=== PATIENT | male | born 1990 | race African-American/Black ===

== ENCOUNTER 2019-12-10 21:11 | Emergency (ER) | payer OTHER, SELFPAY ==
[2019-12-10 21:13] VITALS: BP 139/85; PULSE 81; RESP 15; TEMP 37.2; O2SAT 100
--- NOTE | 2019-12-10 21:29 | ED.GENADULT ---
HPI - General Adult General Chief complaint: Dizziness Stated complaint: dizzy, hot flashes Time Seen by Provider: 12/10/19 21:24 Source: patient Mode of arrival: ambulatory Limitations: no limitations History of Present Illness HPI narrative: Patient is a 29-year-old male who presents to emergency department for evaluation of intermittent chills patient was seen at urgent care today diagnosed constipation given that he has had some cramping of the abdomen denies any current abdominal pain. Patient denies fever vomiting diarrhea chest pain or dyspnea. Patient notes some slight rhinorrhea. Patient denies other complaints and is resting comfortably in the room upon arrival and is not taken anything for his symptoms Related Data Home Medications Medication Instructions Recorded Confirmed acyclovir 12/10/19 Allergies Allergy/AdvReac Type Severity Reaction Status Date / Time No Known Allergies Allergy Unknown Verified 12/10/19 21:18 Review of Systems Review of Systems: All systems reviewed & are unremarkable except as noted in HPI and below PMFSH Social History Social History (Updated 12/10/19 @ 21:30 by Alberto La PA-C) Smoking status: Current every day smoker Alcohol intake: never Exam Narrative: Exam Narrative: GENERAL: Well-appearing, well-nourished, and in no acute distress. HEAD: Normocephalic, atraumatic. EYES: PERRLA and EOMI. ENT: Nares clear, no rhinorrhea or epistaxis. Mucous membranes moist. Oropharynx without tonsillar hypertrophy exudate or other lesions. NECK: Supple. No adenopathy or masses. CHEST: Clear to auscultation. No respiratory distress. No wheezes rales or rhonchi HEART: Regular rate and rhythm. No murmur heard. Normal peripheral pulses. ABDOMEN: Soft, nontender, nondistended EXTREMITIES: Normal range of motion. No edema. SKIN: Warm, dry, no rash. NEURO: No focal deficits. Alert and oriented x3. PSYCH: Normal mood and affect. Course Course Emergency Course: Patient in the room in no distress aware of case findings treatment plan and diagnosis Vital Signs Vital signs: Vital Signs Temperature 98.9 F 12/10/19 21:13 Pulse Rate 81 12/10/19 21:13 Respiratory Rate 15 12/10/19 21:13 Blood Pressure 139/85 12/10/19 21:13 Pulse Oximetry 100 12/10/19 21:13 Temperature 98.9 F 12/10/19 21:13 Pulse Rate 81 12/10/19 21:13 Respiratory Rate 15 12/10/19 21:13 Blood Pressure 139/85 12/10/19 21:13 Pulse Oximetry 100 12/10/19 21:13 Medical Decision Making MDM Narrative Medical decision making narrative: Patient in the room in no distress nontender abdominal exams afebrile nontoxic-appearing without emesis denying any URI symptoms dyspnea chest pain normal vital signs and felt appropriate for outpatient reevaluation provided with reasons to return Vital Signs Vital Signs: Vital Signs Temperature 98.9 F 12/10/19 21:13 Pulse Rate 81 12/10/19 21:13 Respiratory Rate 15 12/10/19 21:13 Blood Pressure 139/85 12/10/19 21:13 Pulse Oximetry 100 12/10/19 21:13 Temperature 98.9 F 12/10/19 21:13 Pulse Rate 81 12/10/19 21:13 Respiratory Rate 15 12/10/19 21:13 Blood Pressure 139/85 12/10/19 21:13 Pulse Oximetry 100 12/10/19 21:13 Discharge Plan Discharge Clinical Impression: Abdominal pain Patient Disposition: Home, Self-Care Condition: Stable Instructions: Antibiotic Form, Abdominal Pain (ED) Additional Instructions: Follow up with your primary care doctor in 5-7 days for re-evaluation. Go to ER for worsening pain, vision changes, nausea/vomiting, fever/chills, weakness, chest pain, shortness of breath, numbness/tingling, slurred speech, difficulty walking, change in mental status, abdominal pain etc. or any other concerns. Stay well-hydrated Take any prescribed medications as directed. Tylenol for pain Prescriptions: No Action acyclovir 400 mg tablet RF: 0 Follow-up/Re
--- NOTE | 2019-12-10 21:41 | PC.NURSE ---
this rn witnessed pt walk out of facility. pt in no obvious distress, no difficulty w/ ambulation. charge nurse notified.
[2019-12-10 21:43] VITALS: BP 139/85; PULSE 79; RESP 14; O2SAT 100
== END 2019-12-10 21:45 | disposition home or self-care (01) ==
LOC: ANHED 21:53
PROVIDERS: Emergency Provider Emergency Medicine
DX: R10.9 Unspecified abdominal pain (principal); F17.200 Nicotine dependence, unspecified, uncomplicated
CPT/HCPCS: 99283

== ENCOUNTER 2020-01-05 14:52 | Emergency (ER) | payer OTHER, SELFPAY ==
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
[2020-01-05 15:00] VITALS: BP 132/80; PULSE 72; RESP 16; TEMP 36.8; O2SAT 100
--- NOTE | 2020-01-05 15:11 | ECG_ITS ---
Measurements Intervals [place] Rate: 68 P: 64 CO: 150 QRS: 54 QRSD: 97 T: 50 QT: 369 QTc: 395 Interpretive Statements SINUS RHYTHM RSR' IN V1 OR V2, CONSIDER RIGHT VENTRICULAR HYPERTROPHY OR RIGHT VCD BORDERLINE ECG Electronically Signed On 01-05-2020 18:37:11 CDT by Alex Flores D.O.
[2020-01-05 15:28] LABS: Basophils Percent Auto 0.6 % (0.2-1.2); Eosinophils Absolute Auto 0.4 K/mm3 (0-0.3); Eosinophils Percent Auto 6.3 % (0-4.4); Hematocrit 48.3 % (42.0-52.0); Hemoglobin 16.7 g/dL (14.0-18.0); Immature Granulocyte Absolute 0.02 K/mm3 (0.00-0.031); Immature Granulocyte Percent A 0.3 % (0-0.5); Lymphocytes Absolute Auto 2.34 K/mm3 (0.9-3.2); Lymphocytes Percent Auto 36.7 % (18.3-44.2); Mean Corpuscular HGB Conc 34.6 g/dl (32-36); Mean Corpuscular Hemoglobin 30.4 pg (26-34); Mean Platelet Volume 10.2 fl (7.4-10.4); Monocytes Absolute Auto 0.5 K/mm3 (0.1-0.6); Monocytes Percent Auto 7.1 % (2.6-8.5); Neutrophils Absolute Auto 3.1 K/mm3 (1.3-6.7); Platelet Count Result 161 k/mm3 (150-375); Red Blood Count 5.49 M/mm3 (4.6-6.20); Red Cell Distribution Width 12.4 % (11.5-14.5); White Blood Count 6.4 K/mm3 (4.5-10.0)
[2020-01-05 15:32] LABS: Add Urine Microscopic? YES; Appearance Urine Clear (Clear); Bacteria Urine Trace /hpf; Bilirubin Urine Negative (Negative); Blood Urine Negative (Negative); Color Urine Straw (Yellow); Glucose Urine UA Negative (Negative); Ketones Urine Negative (Negative); Leukocyte Esterase Ur Negative LEU/UL (Negative); Nitrate Urine Negative (Negative); Protein Urine Negative (Negative); RBC Urine 0-2 /hpf (0-2); Specific Grav Ur 1.013 (1.001-1.035); Squamous Epithelial Cell Urine Rare /hpf (Few); Urobilinogen Urine Negative mg/dL (<2.0); WBC Urine 0-3 /hpf
[2020-01-05 15:40] LABS: Alanine Aminotransferase 20 U/L (4-50); Albumin Level 4.8 g/dL (3.5-5.1); Alkaline Phosphatase 47 U/L (38-126); Aspartate Amino Transferase 24 U/L (17-59); Bilirubin,Total 0.5 mg/dL (0.2-1.3); Blood Urea Nitrogen 13 mg/dL (9-20); Calcium 9.7 mg/dL (8.4-10.2); Carbon Dioxide 31 mmol/L (22-30); Chloride 101 mmol/L (98-107); Estimated CRCL calculation 115 ml/min; Estimated Glomerular Filt Rate > 60; Glucose 88 mg/dL (75-110); Lipase 55 U/L (23-300); Potassium 3.8 mmol/L (3.4-5.0); Sodium 138 mmol/L (137-145)
--- NOTE | 2020-01-05 16:10 | ED.GENADULT ---
HPI - General Adult General Chief complaint: Headache Stated complaint: Headache and b/l flank pain Time Seen by Provider: 01/05/20 14:58 Source: patient Mode of arrival: ambulatory Limitations: no limitations History of Present Illness HPI narrative: This patient is a 29 yo male who presents for evaluation of possible Coronavirus. Patient states that for the past week he has been having intermittent headache, diarrhea, intermittent flank pain. Patient reports over the past week, he has had headache that only last minutes and it changes locations. He denies a headache currently. He reports he assumed his headache was due to his sinuses so he has been taking daina. He reports the daina help with his sinus congestion and sneezing. He also reports he intermittently getting body aches . He denies urinary complaints. HE denies sob. He states he is concerned about COVID due to his family. He denies sick family members but thinke he may have been exposed at work. He has no pain during my examination. Related Data Home Medications Medication Instructions Recorded Confirmed acyclovir 400 mg PO DAILY 12/10/19 Allergies Allergy/AdvReac Type Severity Reaction Status Date / Time No Known Allergies Allergy Unknown Verified 01/05/20 14:59 Review of Systems Constitutional: Constitutional: Reports fatigue and Denies fever(s) Eyes: Eyes: Reports no additional eye complaints ENT: Reports dizziness, Reports headache(s), Reports nasal congestion and Denies sore throat Cardiovascular: Cardiovascular: Denies chest pain and Denies radiating jaw, neck or arm pain Respiratory: Respiratory: Denies cough and Denies dyspnea Gastrointestinal: Gastrointestinal: Denies abdominal pain and Reports diarrhea Genitourinary: Genitourinary: Denies hematuria, Denies oliguria, Denies dysuria and Denies urinary frequency Musculoskeletal: Musculoskeletal: Reports back pain Neurologic: Denies vertigo, Reports headache(s), Denies focal weakness and Denies numbness Allergic/Immunologic: Allergic/Immunologic: Denies lip swelling PMFSH Social History Social History (Updated 12/10/19 @ 21:30 by Alberto La PA-C) Smoking status: Current every day smoker Alcohol intake: never Gender identity (if verbalized by the patient): Male Exam Narrative: Exam Narrative: GENERAL: Well-appearing, well-nourished, and in no acute distress. HEAD: Normocephalic, atraumatic EYES: PERRLA and EOMI, conjunctiva clear without discharge NOSE: Nares clear, no rhinorrhea or epistaxis RESPIRATORY: No respiratory distress, Airway patent, Respirations non-labored, Clear to auscultation without rales, rhonchi or wheeze HEART: Regular rate and rhythm. No murmur heard. Normal peripheral pulses. ABDOMEN: Soft, nontender, nondistended, normal active bowel sounds. No masses. No rebound or guarding, No organomegaly. EXTREMITIES: No edema, normal strength with full range of motion. SKIN: Warm, dry, normal color without rash NEURO: Alert and oriented x3. CN 2-12 grossly intact. No focal deficits. PSYCH: Normal mood and affect. HENMT: Ears: TM abnormal with fluid behind the TM (serous) on the left Mouth: Yes Normal oral and palatal mucosa present, Yes lip normal, Yes oropharynx normal and Yes moist mucous membranes Throat: posterior oropharynx normal Eyes: Conjunctivae: conjunctivae normal Pupils: Equal, round and reactive pupils present EOM: EOMs intact bilaterally Neck: Neck: normal visual inspection Chest: Chest palpation & inspection: normal inspection of the chest Resp: Effort & Inspection: normal respiratory effort Course Reevaluation(s) Reevaluation #1: I have discussed with patient labs are unremarkable. He has no symptoms or labs that suggest additional imaging at this point. He has appointment with PCP on Tuesday. I discussed precautions until he is able to receive test results. Date: 01/05/20 Time: 16:58 Vital Signs Vital signs: Vital
[2020-01-05 17:11] VITALS: BP 116/75; PULSE 60; RESP 16; TEMP 36.8; O2SAT 100
[2020-01-05 22:29] LABS: SARS-CoV-2 RNA PCR Negative
== END 2020-01-05 17:17 | disposition home or self-care (01) ==
PROVIDERS: Emergency Provider General Practice
DX: R51 Headache (principal); Z20.828 Contact with and (suspected) exposure to other viral communicable diseases; F17.200 Nicotine dependence, unspecified, uncomplicated; R94.31 Abnormal electrocardiogram [ECG] [EKG]
CPT/HCPCS: 36415; 71045; 80053; 81001; 83690; 85025; 87635; 93005; 99283; C9803; U0003

== ENCOUNTER 2020-02-03 10:57 | Emergency (ER) | payer OTHER, SELFPAY ==
[2020-02-03] VITALS (22 sets, daily range): BP systolic 102–146; BP diastolic 60–85; PULSE 66–73; RESP 16–18; TEMP 36.5; O2SAT 97–100
[2020-02-03] MEDS: FAMOTIDINE 20 MG/2 ML VIAL IV PUSH (11:51)
[2020-02-03] MEDS: SODIUM CHLORIDE 0.9% IV 1,000 ML 999 ML IV CONT (11:52)
[2020-02-03 11:57] LABS: Basophils Percent Auto 0.8 % (0.2-1.2); Eosinophils Absolute Auto 0.5 K/mm3 (0-0.3); Eosinophils Percent Auto 9.8 % (0-4.4); Hematocrit 45.6 % (42.0-52.0); Hemoglobin 15.3 g/dL (14.0-18.0); Immature Granulocyte Absolute 0.01 K/mm3 (0.00-0.031); Immature Granulocyte Percent A 0.2 % (0-0.5); Lymphocytes Absolute Auto 1.69 K/mm3 (0.9-3.2); Lymphocytes Percent Auto 35.3 % (18.3-44.2); Mean Corpuscular HGB Conc 33.6 g/dl (32-36); Mean Corpuscular Hemoglobin 30.2 pg (26-34); Mean Corpuscular Volume 90.1 fl (80-100); Mean Platelet Volume 10.4 fl (7.4-10.4); Monocytes Absolute Auto 0.4 K/mm3 (0.1-0.6); Monocytes Percent Auto 7.5 % (2.6-8.5); Neutrophils Absolute Auto 2.2 K/mm3 (1.3-6.7); Neutrophils Percent Auto 46.4 % (45.5-73.1); Platelet Count Result 159 k/mm3 (150-375); Red Blood Count 5.06 M/mm3 (4.6-6.20); Red Cell Distribution Width 12.3 % (11.5-14.5); White Blood Count 4.8 K/mm3 (4.5-10.0)
[2020-02-03 12:06] LABS: Add Urine Microscopic? YES; Appearance Urine Cloudy (Clear); Bacteria Urine Trace /hpf; Bilirubin Urine Negative (Negative); Blood Urine Negative (Negative); Color Urine Yellow (Yellow); Glucose Urine UA Negative (Negative); Ketones Urine Negative (Negative); Leukocyte Esterase Ur Negative LEU/UL (Negative); Mucus Urine Rare /lpf; Nitrate Urine Negative (Negative); Protein Urine Negative (Negative); RBC Urine 0-2 /hpf (0-2); Specific Grav Ur 1.026 (1.001-1.035); Squamous Epithelial Cell Urine Rare /hpf (Few); WBC Urine 0-3 /hpf
--- NOTE | 2020-02-03 12:12 | ED.ABDPAIN ---
HPI - Abdominal Pain General Chief Complaint: Abdominal Pain <Alberto La PA-C - Last Filed: 02/03/20 12:57> Stated Complaint: ABD PAIN <ERUM Gordillo Last Filed: 02/03/20 12:57> Time Seen by Provider: 02/03/20 11:09 <ERUM Gordillo Last Filed: 02/03/20 12:57> Source: patient <Alberto La PA-C - Last Filed: 02/03/20 12:57> Mode of arrival: ambulatory <ERUM Gordillo Last Filed: 02/03/20 12:57> Limitations: no limitations <Alberto La PA-C - Last Filed: 02/03/20 12:57> History of Present Illness HPI narrative: Patient is a 29-year-old male who presents to emergency department for evaluation of abdominal pain that is been present for 1 month localized to the right flank noting aching pain that comes and goes on arrival denies any pain believes that it may be related to eating patient denies any prior evaluation for this has not taken anything for his symptoms denies any fever chills nausea vomiting or URI symptoms <Alberto La PA-C - Last Filed: 02/03/20 12:57> Related Data Home Medications: Home Medications Medication Instructions Recorded Confirmed acyclovir 400 mg PO DAILY 12/10/19 <Alberto La PA-C - Last Filed: 02/03/20 12:57> Allergies/Adverse Reactions: Allergies Allergy/AdvReac Type Severity Reaction Status Date / Time No Known Allergies Allergy Unknown Verified 02/03/20 11:19 <Alberto La PA-C - Last Filed: 02/03/20 12:57> Review of Systems Review of Systems: All systems reviewed & are unremarkable except as noted in HPI and below <Alberto La PA-C - Last Filed: 02/03/20 12:57> [facility] Social History Social History: Social History (Updated 12/10/19 @ 21:30 by Alberto La PA-C) Smoking status: Current every day smoker Alcohol intake: never Gender identity (if verbalized by the patient): Male <ERUM Gordillo Last Filed: 02/03/20 12:57> Exam Narrative: Exam Narrative: GENERAL: Well-appearing, well-nourished, and in no acute distress. HEAD: Normocephalic, atraumatic. EYES: PERRLA and EOMI. ENT: Nares clear, no rhinorrhea or epistaxis. Mucous membranes moist. CHEST: Clear to auscultation. No respiratory distress. No wheezes rales or rhonchi HEART: Regular rate and rhythm. No murmur heard. Normal peripheral pulses. ABDOMEN: Soft, nontender, nondistended EXTREMITIES: Normal range of motion. No edema. SKIN: Warm, dry, no rash. NEURO: No focal deficits. Alert and oriented x3. PSYCH: Normal mood and affect. <ERUM Gordillo Last Filed: 02/03/20 12:57> Course Course Emergency Course: Patient in the room in no distress aware of case findings treatment plan and diagnosis agreeing to follow-up as directed or to return if symptoms worsen or concern patient is afebrile nontoxic-appearing no distress <ERUM Gordillo Last Filed: 02/03/20 12:57> Vital Signs Vital signs: Vital Signs Temperature 36.5 C 02/03/20 11:03 Pulse Rate 73 02/03/20 11:03 Respiratory Rate 16 02/03/20 11:03 Blood Pressure 146/78 H 02/03/20 11:03 Pulse Oximetry 100 02/03/20 11:03 Temperature 36.5 C 02/03/20 11:03 Pulse Rate 66 02/03/20 13:06 Respiratory Rate 18 02/03/20 13:06 Blood Pressure 107/62 02/03/20 13:06 Pulse Oximetry 100 02/03/20 13:06 <ERUM Gordillo Last Filed: 02/03/20 12:57> Vital Signs Temperature 36.5 C 02/03/20 11:03 Pulse Rate 73 02/03/20 11:03 Respiratory Rate 16 02/03/20 11:03 Blood Pressure 146/78 H 02/03/20 11:03 Pulse Oximetry 100 02/03/20 11:03 Temperature 36.5 C 02/03/20 11:03 Pulse Rate 66 02/03/20 13:06 Respiratory Rate 18 02/03/20 13:06 Blood Pressure 107/62 02/03/20 13:06 Pulse Oximetry 100 02/03/20 13:06 <Daphne Cha MD - Last Filed: 02/03/20 13:57> MDM - Abdominal Pain MDM Narrative Medical decision making narrat
[2020-02-03 12:15] LABS: Alanine Aminotransferase 20 U/L (4-50); Albumin Level 4.8 g/dL (3.5-5.1); Alkaline Phosphatase 45 U/L (38-126); Aspartate Amino Transferase 28 U/L (17-59); Bilirubin,Total 0.8 mg/dL (0.2-1.3); Blood Urea Nitrogen 14 mg/dL (9-20); Calcium 9.8 mg/dL (8.4-10.2); Carbon Dioxide 33 mmol/L (22-30); Chloride 101 mmol/L (98-107); Estimated CRCL calculation 104 ml/min; Estimated Glomerular Filt Rate > 60; Glucose 80 mg/dL (75-110); Lipase 36 U/L (23-300); Potassium 3.6 mmol/L (3.4-5.0); Sodium 139 mmol/L (137-145)
== END 2020-02-03 13:09 | disposition home or self-care (01) ==
PROVIDERS: Emergency Provider Emergency Medicine
DX: R10.9 Unspecified abdominal pain (principal); F17.200 Nicotine dependence, unspecified, uncomplicated
CPT/HCPCS: 36415; 80053; 81001; 83690; 85025; 96361; 96365; 96375; 99284; J0131; J7030

== ENCOUNTER 2020-02-08 17:05 | Emergency (ER) | payer OTHER, SELFPAY ==
[2020-02-08 17:24] VITALS: BP 138/90; PULSE 65; RESP 18; TEMP 37.3; O2SAT 100
--- NOTE | 2020-02-08 17:30 | ECG_ITS ---
Measurements Intervals [place] Rate: 71 P: 64 SD: 148 QRS: 59 QRSD: 83 T: 39 QT: 365 QTc: 397 Interpretive Statements SINUS RHYTHM BASELINE ARTIFACT- I, II NORMAL ECG Electronically Signed On 02-09-2020 7:06:45 CDT by Alex Flores D.O.
[2020-02-08 17:51] LABS: Basophils Percent Auto 0.5 % (0.2-1.2); Eosinophils Absolute Auto 0.4 K/mm3 (0-0.3); Eosinophils Percent Auto 6.8 % (0-4.4); Hematocrit 45.7 % (42.0-52.0); Hemoglobin 15.6 g/dL (14.0-18.0); Immature Granulocyte Absolute 0.01 K/mm3 (0.00-0.031); Immature Granulocyte Percent A 0.2 % (0-0.5); Lymphocytes Absolute Auto 2.26 K/mm3 (0.9-3.2); Lymphocytes Percent Auto 38.6 % (18.3-44.2); Mean Corpuscular HGB Conc 34.1 g/dl (32-36); Mean Corpuscular Hemoglobin 30.6 pg (26-34); Mean Corpuscular Volume 89.8 fl (80-100); Mean Platelet Volume 10.6 fl (7.4-10.4); Monocytes Absolute Auto 0.4 K/mm3 (0.1-0.6); Monocytes Percent Auto 7.2 % (2.6-8.5); Neutrophils Absolute Auto 2.7 K/mm3 (1.3-6.7); Neutrophils Percent Auto 46.7 % (45.5-73.1); Platelet Count Result 165 k/mm3 (150-375); Red Blood Count 5.09 M/mm3 (4.6-6.20); Red Cell Distribution Width 12.2 % (11.5-14.5); White Blood Count 5.9 K/mm3 (4.5-10.0)
[2020-02-08 18:02] LABS: Alanine Aminotransferase 20 U/L (4-50); Albumin Level 4.7 g/dL (3.5-5.1); Alkaline Phosphatase 46 U/L (38-126); Aspartate Amino Transferase 26 U/L (17-59); Bilirubin,Total 0.4 mg/dL (0.2-1.3); Blood Urea Nitrogen 14 mg/dL (9-20); Calcium 9.4 mg/dL (8.4-10.2); Carbon Dioxide 30 mmol/L (22-30); Chloride 103 mmol/L (98-107); Estimated CRCL calculation 104 ml/min; Estimated Glomerular Filt Rate > 60; Glucose 92 mg/dL (75-110); Lipase 53 U/L (23-300); Potassium 4.6 mmol/L (3.4-5.0); Sodium 140 mmol/L (137-145)
--- NOTE | 2020-02-08 18:05 | ED.ABDPAIN ---
HPI - Abdominal Pain General Chief Complaint: Abdominal Pain Stated Complaint: DIZZINESS/ABD PAIN Time Seen by Provider: 02/08/20 17:36 Source: patient Mode of arrival: ambulatory Limitations: no limitations History of Present Illness HPI narrative: Patient is a 29-year-old male who presents with ongoing abdominal discomfort that comes and goes patient has been seen in the emergency department for this several times has not followed up as instructed has been taking his medications at home with some improvement patient notes today he is having epigastric discomfort patient denies any vomiting diarrhea notes that he did have a bowel movement today which was slightly hard and formed and did require some straining. Patient denies rectal bleeding or melena Related Data Home Medications Medication Instructions Recorded Confirmed acyclovir 400 mg PO DAILY 12/10/19 Allergies Allergy/AdvReac Type Severity Reaction Status Date / Time No Known Allergies Allergy Unknown Verified 02/03/20 11:19 Review of Systems Review of Systems: All systems reviewed & are unremarkable except as noted in HPI and below PMFSH Social History Social History Smoking status: Current every day smoker Alcohol intake: never Gender identity (if verbalized by the patient): Male Exam Narrative: Exam Narrative: GENERAL: Well-appearing, well-nourished, and in no acute distress. HEAD: Normocephalic, atraumatic. EYES: PERRLA and EOMI. ENT: Nares clear, no rhinorrhea or epistaxis. Mucous membranes moist. CHEST: Clear to auscultation. No respiratory distress. No wheezes rales or rhonchi HEART: Regular rate and rhythm. No murmur heard. Normal peripheral pulses. ABDOMEN: Soft, epigastric tenderness to palpation, nondistended EXTREMITIES: Normal range of motion. No edema. SKIN: Warm, dry, no rash. NEURO: No focal deficits. Alert and oriented x3. PSYCH: Normal mood and affect. Course Course Emergency Course: Patient in the room in no distress will be discharged home with ENT and GI follow-up and advised to follow with primary care for his symptoms that he has been experiencing Vital Signs Vital signs: Vital Signs Temperature 99.2 F 02/08/20 17:24 Pulse Rate 65 02/08/20 17:24 Respiratory Rate 18 02/08/20 17:24 Blood Pressure 138/90 02/08/20 17:24 Pulse Oximetry 100 02/08/20 17:24 Temperature 99.2 F 02/08/20 17:24 Pulse Rate 65 02/08/20 17:24 Respiratory Rate 18 02/08/20 17:24 Blood Pressure 138/90 02/08/20 17:24 Pulse Oximetry 100 02/08/20 17:24 MDM - Abdominal Pain MDM Narrative Medical decision making narrative: Patient in the room in no distress aware of case findings treatment plan and diagnosis agreeing to follow-up as directed or to return if symptoms worsen or concerns Lab Data Result diagrams: 02/08/20 17:43 02/08/20 17:45 Labs: Lab Results 02/08/20 02/08/20 02/08/20 Range/Units 17:43 17:43 17:45 WBC 5.9 Cancelled (4.5-10.0) K/mm3 RBC 5.09 Cancelled (4.6-6.20) M/mm3 Hgb 15.6 Cancelled (14.0-18.0) g/dL Hct 45.7 Cancelled (42.0-52.0) % MCV 89.8 Cancelled (80-100) fl MCH 30.6 Cancelled (26-34) pg MCHC 34.1 Cancelled (32-36) g/dl RDW 12.2 Cancelled (11.5-14.5) % Plt Count 165 Cancelled (150-375) k/mm3 MPV 10.6 H Cancelled (7.4-10.4) fl Immature Gran % (Auto) 0.2 Cancelled (0-0.5) % Neut % (Auto) 46.7 Cancelled (45.5-73.1) % Lymph % (Auto) 38.6 Cancelled (18.3-44.2) % [place] % (Auto) 7.2 Cancelled (2.6-8.5) % Eos % (Auto) 6.8 H Cancelled (0-4.4) % Baso % (Auto) 0.5 Cancelled (0.2-1.2) % Lymph # (Auto) 2.26 Cancelled (0.9-3.2) K/mm3 [place] # (Auto) 0.4 Cancelled (0.1-0.6) K/mm3 Eos # (Auto) 0.4 H Cancelled (0-0.3) K/mm3 Baso # (Auto) 0.0 Cancelled (0.0-0.1) K/mm3 Abs Immat Gran (auto) 0.01 Cancelled (0.00-0.031)
[2020-02-08] MEDS: BELLADONNA ALK/PHENOB ELIX 10 ML, MAG HYDROX/ALUMINUM HYD/SIMETH 30 ML, LIDOCAINE HCL 2... PO (18:07)
[2020-02-08 18:18] LABS: Add Urine Microscopic? YES; Appearance Urine Clear (Clear); Bilirubin Urine Negative (Negative); Blood Urine Negative (Negative); Color Urine Yellow (Yellow); Glucose Urine UA Negative (Negative); Ketones Urine Negative (Negative); Leukocyte Esterase Ur Negative LEU/UL (Negative); Nitrate Urine Negative (Negative); Protein Urine Negative (Negative); RBC Urine 0-2 /hpf (0-2); Specific Grav Ur 1.021 (1.001-1.035); Squamous Epithelial Cell Urine Rare /hpf (Few); WBC Urine 0-3 /hpf
[2020-02-08 19:00] VITALS: BP 134/87; PULSE 58; RESP 20; O2SAT 98
[2020-02-08] MEDS: MECLIZINE HCL 25 MG TABLET PO (19:07)
== END 2020-02-08 19:11 | disposition home or self-care (01) ==
PROVIDERS: Emergency Medicine; Emergency Medicine Emergency Medical Services; Emergency Provider Family Medicine
DX: R42 Dizziness and giddiness (principal); F17.200 Nicotine dependence, unspecified, uncomplicated
CPT/HCPCS: 36415; 80053; 81001; 83690; 85025; 87491; 87591; 93005; 99283; A9270

== ENCOUNTER 2021-06-25 16:32 | Emergency (ER) | payer OTHER, SELFPAY ==
[2021-06-25] VITALS (9 sets, daily range): BP systolic 111–134; BP diastolic 76–95; PULSE 60–79; RESP 12–18; TEMP 36.8–37; O2SAT 98–100
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
--- NOTE | 2021-06-25 16:48 | ECG_ITS ---
Measurements Intervals [place] Rate: 69 P: 122 CO: 146 QRS: 147 QRSD: 84 T: 144 QT: 368 QTc: 397 Interpretive Statements SINUS RHYTHM ARM LEADS REVERSED ATYPICAL ECG Electronically Signed On 06-25-2021 20:03:52 CDT by Alex Flores D.O.
[2021-06-25 17:26] LABS: Basophils Percent Auto 0.6 % (0.2-1.2); Eosinophils Absolute Auto 0.1 K/mm3 (0-0.3); Eosinophils Percent Auto 1.9 % (0-4.4); Hematocrit 46.3 % (42.0-52.0); Hemoglobin 15.9 g/dL (14.0-18.0); Immature Granulocyte Absolute 0.02 K/mm3 (0.00-0.031); Immature Granulocyte Percent A 0.3 % (0-0.5); Lymphocytes Absolute Auto 2.46 K/mm3 (0.9-3.2); Mean Corpuscular HGB Conc 34.3 g/dl (32-36); Mean Corpuscular Hemoglobin 30.9 pg (26-34); Mean Corpuscular Volume 89.9 fl (80-100); Mean Platelet Volume 9.9 fl (7.4-10.4); Monocytes Absolute Auto 0.5 K/mm3 (0.1-0.6); Monocytes Percent Auto 6.7 % (2.6-8.5); Neutrophils Absolute Auto 3.9 K/mm3 (1.3-6.7); Neutrophils Percent Auto 55.5 % (45.5-73.1); Platelet Count Result 188 k/mm3 (150-375); Red Blood Count 5.15 M/mm3 (4.6-6.20); Red Cell Distribution Width 12.8 % (11.5-14.5)
[2021-06-25 17:36] LABS: Anion Gap 7 mmol/L (8-16); Blood Urea Nitrogen 8 mg/dL (9-20); Calcium 9.8 mg/dL (8.4-10.2); Carbon Dioxide 27 mmol/L (22-30); Chloride 108 mmol/L (98-107); Estimated CRCL calculation 118 ml/min; Estimated Glomerular Filt Rate > 60; Glucose 85 mg/dL (65-110); Potassium 4.4 mmol/L (3.4-5.0); Sodium 142 mmol/L (137-145)
[2021-06-25 17:37] LABS: INR 0.9; Prothrombin Time 12.2 Seconds (11.1-14.7)
[2021-06-25 17:38] LABS: Partial Thromboplastin Time 30.1 SECONDS (22.3-36.8)
[2021-06-25 17:47] LABS: Troponin I < 0.012 ng/mL (0.000-0.034)
--- NOTE | 2021-06-25 18:44 | PC.NURSE ---
To room NAD; gown, blanket, call light provided.
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
== END 2021-06-25 20:09 | disposition home or self-care (01) ==
PROVIDERS: Emergency Provider Emergency Medicine
DX: R07.89 Other chest pain (principal); F17.200 Nicotine dependence, unspecified, uncomplicated
CPT/HCPCS: 36415; 71046; 80048; 84484; 85025; 85610; 85730; 93005; 99284

== ENCOUNTER → 2022-04-02 09:50 | Outpatient (CLI) | payer OTHER, SELFPAY ==
--- NOTE | ~2022-04-02 | XR_ITS ---
EXAMINATION: XR wrist RT min 3V INDICATION: Right wrist pain TECHNIQUE: Four views of the right wrist are obtained. COMPARISON: None available FINDINGS: Bone alignment is normal. There is no fracture. The joint spaces are normal. The soft tissu es are unremarkable. IMPRESSION: 1. No acute osseous abnormality. Reviewed, dictated and finalized at location L.
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
--- NOTE | ~2022-04-02 | XR_ITS ---
EXAMINATION: XR forearm RT 2V INDICATION: Right arm pain TECHNIQUE: Two views of the right forearm are obtained. COMPARISON: None available FINDINGS: Bone alignment is normal. There is no fracture. The soft tissues are unremarkable. IMPRESSION: 1. No acute osseous abnormality. Reviewed, dictated and finalized at location L.
== END ==
PROVIDERS: PCP Emergency Medicine; Visit Provider Emergency Medicine
DX: M79.601 Pain in right arm (principal); Z87.81 Personal history of (healed) traumatic fracture; M79.5 Residual foreign body in soft tissue
CPT/HCPCS: 73030; 73060; 73090; 73110

== ENCOUNTER 2022-05-24 07:43 | Emergency (ER) | payer OTHER, SELFPAY ==
--- NOTE | ~2022-05-24 | US_ITS ---
EXAMINATION: US scrotum doppler DATE: 05/24/2022 10:50 INDICATION: Right testicular pain. TECHNIQUE: Grayscale and Doppler ultrasound images of the testes were obtained. COMPARISON: None. FINDINGS: The right testis measures 4.8 x 1.8 x 2.7 cm. The left testis measures 5.0 x 2.0 x 2.7 cm. There is normal vascular flow to both testes. The right epididymis demonstrates a 5 mm cyst. The left epididymis is normal with normal vascular flow. There is no varicocele or hydrocele. IMPRESSION: 1. Normal testes. Reviewed, dictated and finalized at location A. IMPRESSION: 1. Normal testes.
[2022-05-24 07:49] VITALS: BP 130/76; PULSE 86; RESP 16; TEMP 36.8; O2SAT 99
[2022-05-24 07:55] VITALS: BP 120/81; PULSE 83; RESP 20; O2SAT 99
--- NOTE | 2022-05-24 09:26 | ED.GENADULT ---
HPI - General Adult General Chief complaint: Headache Stated complaint: headache, L side pain Time Seen by Provider: 05/24/22 08:56 Source: patient Mode of arrival: ambulatory Limitations: no limitations History of Present Illness HPI narrative: Patient is a 31-year-old male who presents the ED with multiple complaints. Patient reports having a diffuse headache since Tuesday. Pain has been persistent. He has been taking Advil and [id number] sinus medication without relief. Denies any vision changes, neck pain, fevers. He also reports having pain in his right lower back since Tuesday night, in addition to pain in his right testicle when he urinates. Denies dysuria or hematuria. Denies testicular swelling. Denies concern for STD. Patient further reports having a cough, but denies runny nose, congestion, sore throat, nausea, vomiting, chest pain, shortness of breath. He states he was going to go to the urgent care today to be tested for COVID, but decided he should come here. Related Data Home Medications Medication Instructions Recorded Confirmed acyclovir 400 mg tablet 400 mg PO DAILY 12/10/19 Allergies Allergy/AdvReac Type Severity Reaction Status Date / Time No Known Allergies Allergy Unknown Verified 05/24/22 07:59 Review of Systems Review of Systems: CONSTITUTIONAL: Denies fever, chills, or sweats. EYES: Denies visual changes. ENT: Denies rhinorrhea, congestion, sore throat. CARDIOVASCULAR: Denies chest pain. RESPIRATORY: Reports cough. Denies dyspnea. GASTROINTESTINAL: Denies abdominal pain, nausea, vomiting. GENITOURINARY: Reports testicular pain with urination. Denies testicular swelling, dysuria, or hematuria. MUSCULOSKELETAL: Reports R lower back pain. NEUROLOGIC: Reports UGARTE. Denies numbness or weakness. All systems reviewed & are unremarkable except as noted in HPI and below PMFSH Past Medical History Medical History No pertinent past medical history Surgical History Surgical History (Updated 05/24/22 @ 09:31 by Susie Sood PA-C) No pertinent past surgical history Social History Social History Smoking status: Current every day smoker Alcohol intake: never Gender identity (if verbalized by the patient): Male Exam Narrative: GENERAL: Well appearing, well-nourished, non-toxic, in no acute distress. HEAD: Normocephalic, atraumatic. EYES: PERRL/EOMI, conjunctivae clear bilaterally. NOSE: Normal, no drainage. THROAT: Pharynx clear, no exudate. MMs moist. NECK: Supple. No adenopathy, no masses. Full nonpainful range of motion. No meningeal signs. RESPIRATORY: Airway patent, respirations nonlabored. Clear to auscultation bilaterally, no rales, rhonchi, wheezing. CARDIOVASCULAR: Regular rate and rhythm without murmurs, rubs, or gallops. Radial pulses 2+ and equal bilaterally. ABDOMINAL: Soft, no tenderness throughout abdomen, nondistended, no hepatosplenomegaly. Normoactive BS. TESTICULAR: Normal external genitalia. No genital lesions. Scrotum without redness/swelling/warmth. Minimal tenderness to palpation of R testicle. No significant tenderness over epididymis bilaterally. MUSCULOSKELETAL: Moves all extremities. Strength/ROM intact without gross deformities. Mild tenderness in right lower lumbar region. SKIN: Warm, dry, normal color. No rashes. NEURO: A&O X3. Speech clear. Cranial nerves II-XII grossly intact. Steady gait. No ataxic movements. PSYCHIATRIC: Appropriate mood and affect. Normal interaction. Course Vital Signs Vital signs: Vital Signs Temperature 98.3 F 05/24/22 07:49 Pulse Rate 86 05/24/22 07:49 Respiratory Rate 16 05/24/22 07:49 Blood Pressure 130/76 05/24/22 07:49 Pulse Oximetry 99 05/24/22 07:49 Oxygen Delivery Room Air 05/24/22 07:49 Temperature 98.3 F 05/24/22 07:49 Pulse Rate 64 05/24/22 11:39 Respi
[2022-05-24] MEDS: SODIUM CHLORIDE 0.9% IV 1,000 ML 999 ML IV CONT (09:35)
[2022-05-24 09:36] LABS: Basophils Percent Auto 0.5 % (0.2-1.2); Eosinophils Percent Auto 0.2 % (0-4.4); Hematocrit 43.6 % (42.0-52.0); Hemoglobin 14.5 g/dL (14.0-18.0); Immature Granulocyte Absolute 0.01 K/mm3 (0.00-0.031); Immature Granulocyte Percent A 0.2 % (0-0.5); Lymphocytes Absolute Auto 1.55 K/mm3 (0.9-3.2); Lymphocytes Percent Auto 35.2 % (18.3-44.2); Mean Corpuscular HGB Conc 33.3 g/dl (32-36); Mean Corpuscular Hemoglobin 29.8 pg (26-34); Mean Corpuscular Volume 89.7 fl (80-100); Mean Platelet Volume 10.2 fl (7.4-10.4); Monocytes Absolute Auto 0.7 K/mm3 (0.1-0.6); Monocytes Percent Auto 14.8 % (2.6-8.5); Neutrophils Absolute Auto 2.2 K/mm3 (1.3-6.7); Neutrophils Percent Auto 49.1 % (45.5-73.1); Platelet Count Result 147 k/mm3 (150-375); Red Blood Count 4.86 M/mm3 (4.6-6.20); Red Cell Distribution Width 12.9 % (11.5-14.5); White Blood Count 4.4 K/mm3 (4.5-10.0)
[2022-05-24] MEDS: KETOROLAC 30 MG/ML VIAL (*BKC) IV PUSH (09:36)
[2022-05-24 09:38] LABS: Appearance Urine Clear (Clear); Bilirubin Urine Negative (Negative); Blood Urine Negative (Negative); Color Urine Yellow (Yellow); Glucose Urine UA Negative (Negative); Ketones Urine Negative (Negative); Leukocyte Esterase Ur Negative LEU/UL (Negative); Nitrate Urine Negative (Negative); Protein Urine Negative (Negative); Urobilinogen Urine 0.2 mg/dL (<2.0); pH Urine 6.5 (5.0-9.0)
[2022-05-24 09:40] VITALS: BP 118/78; PULSE 66; RESP 18; O2SAT 100
[2022-05-24 09:48] LABS: Alanine Aminotransferase 24 U/L (6-50); Albumin Level 4.2 g/dL (3.5-5.1); Alkaline Phosphatase 43 U/L (38-126); Anion Gap 8 mmol/L (8-16); Aspartate Amino Transferase 35 U/L (17-59); Bilirubin,Total 0.3 mg/dL (0.2-1.3); Blood Urea Nitrogen 8 mg/dL (9-20); Calcium 8.7 mg/dL (8.4-10.2); Carbon Dioxide 26 mmol/L (22-30); Chloride 104 mmol/L (98-107); Estimated CRCL calculation 116 ml/min; Estimated Glomerular Filt Rate > 60; Glucose 84 mg/dL (65-110); Lipase 59 U/L (23-300); Potassium 4.5 mmol/L (3.4-5.0); Sodium 138 mmol/L (137-145)
[2022-05-24 09:59] LABS: Add Urine Microscopic? NO
[2022-05-24 10:12] LABS: SARS-CoV-2 RNA PCR Positive
[2022-05-24 10:27] VITALS: BP 113/74; PULSE 62; RESP 18; O2SAT 99
[2022-05-24 11:39] VITALS: BP 103/70; PULSE 64; RESP 18; O2SAT 98
== END 2022-05-24 11:42 | disposition home or self-care (01) ==
PROVIDERS: Physician Assistant; Emergency Provider Emergency Medicine; PCP Emergency Medicine
DX: U07.1 COVID-19 (principal); R51.9 Headache, unspecified; N50.3 Cyst of epididymis; F17.200 Nicotine dependence, unspecified, uncomplicated
CPT/HCPCS: 36415; 76870; 80053; 81003; 83690; 85025; 93976; 96361; 96374; 96375; 99284; C9803; J0131; J1885; J7030; U0003; U0005

== ENCOUNTER 2022-12-15 14:23 | Emergency (ER) | payer OTHER, SELFPAY ==
[2022-12-15 14:38] VITALS: BP 114/72; PULSE 61; RESP 16; TEMP 36.7; O2SAT 100
[2022-12-15 16:13] LABS: Basophils Absolute Auto 0.1 K/mm3 (0.0-0.1); Basophils Percent Auto 0.7 % (0.2-1.2); Eosinophils Absolute Auto 0.5 K/mm3 (0-0.3); Eosinophils Percent Auto 6.9 % (0-4.4); Hematocrit 42.9 % (42.0-52.0); Hemoglobin 14.1 g/dL (14.0-18.0); Immature Granulocyte Absolute 0.02 K/mm3 (0.00-0.031); Immature Granulocyte Percent A 0.3 % (0-0.5); Lymphocytes Absolute Auto 2.91 K/mm3 (0.9-3.2); Lymphocytes Percent Auto 41.6 % (18.3-44.2); Mean Corpuscular HGB Conc 32.9 g/dl (32-36); Mean Corpuscular Hemoglobin 30.1 pg (26-34); Mean Corpuscular Volume 91.7 fl (80-100); Mean Platelet Volume 9.9 fl (7.4-10.4); Monocytes Absolute Auto 0.6 K/mm3 (0.1-0.6); Neutrophils Percent Auto 42.5 % (45.5-73.1); Platelet Count Result 169 k/mm3 (150-375); Red Blood Count 4.68 M/mm3 (4.6-6.20); Red Cell Distribution Width 12.9 % (11.5-14.5)
[2022-12-15 16:15] LABS: Appearance Urine Clear (Clear); Bilirubin Urine Negative (Negative); Blood Urine Negative (Negative); Color Urine Yellow (Yellow); Glucose Urine UA Negative (Negative); Ketones Urine Negative (Negative); Leukocyte Esterase Ur Negative LEU/UL (Negative); Nitrate Urine Negative (Negative); Protein Urine Negative (Negative); Specific Grav Ur 1.017 (1.001-1.035); pH Urine 6.5 (5.0-9.0)
[2022-12-15 16:23] LABS: Add Urine Microscopic? NO
[2022-12-15 16:42] LABS: Alanine Aminotransferase 19 U/L (6-50); Albumin Level 4.3 g/dL (3.5-5.1); Alkaline Phosphatase 55 U/L (38-126); Anion Gap 5 mmol/L (8-16); Aspartate Amino Transferase 22 U/L (17-59); Bilirubin,Total 0.6 mg/dL (0.2-1.3); Blood Urea Nitrogen 8 mg/dL (9-20); Calcium 8.8 mg/dL (8.4-10.2); Carbon Dioxide 31 mmol/L (22-30); Chloride 105 mmol/L (98-107); Estimated CRCL calculation 116 ml/min; Estimated Glomerular Filt Rate > 60; Glucose 83 mg/dL (65-110); Lipase 34 U/L (23-300); Potassium 4.3 mmol/L (3.4-5.0); Sodium 141 mmol/L (137-145)
[2022-12-15 16:52] VITALS: BP 128/88; PULSE 56; RESP 18; O2SAT 100
--- NOTE | 2022-12-15 17:15 | ED.ABDPAIN ---
HPI - Abdominal Pain General Chief Complaint: Abdominal Pain Stated Complaint: abdominal pain Time Seen by Provider: 12/15/22 16:54 Source: patient and RN notes reviewed Mode of arrival: ambulatory Limitations: no limitations History of Present Illness HPI narrative: This is a 32 year old male who presents for evaluation of abdominal pain. He states he has been having intermittent flank pain for 1 week. He states his pain was worse with eating and drinking. He states his pain has been constant. He denies nausea, vomiting, fever or chills. He reports diarrhea starting 1 week ago but he has not had bowel movement in 4 days. HE denies any urinary issues. He denies any foreign travel Related Data Home Medications Medication Instructions Recorded Confirmed acyclovir 400 mg tablet 400 mg PO DAILY 12/10/19 Allergies Allergy/AdvReac Type Severity Reaction Status Date / Time No Known Allergies Allergy Unknown Verified 12/15/22 16:49 Review of Systems Constitutional: Constitutional: Denies weakness Cardiovascular: Cardiovascular: Denies syncope, Denies rapid heart rate, Denies irregular heart rhythm, Denies leg edema and Denies dyspnea Respiratory: Respiratory: Denies chest congestion, Denies hemoptysis, Denies excessive phlegm production and Denies dyspnea Gastrointestinal: Gastrointestinal: Reports abdominal pain, Denies hematochezia, Reports diarrhea and Denies vomiting Genitourinary: Genitourinary: Denies hematuria, Denies dysuria, Denies penile discharge and Denies testicular pain Musculoskeletal: Musculoskeletal: Denies joint swelling, Denies loss of height and Denies muscle weakness Neurologic: Denies syncope, Denies focal weakness and Denies weakness PMFSH Past Medical History Medical History No pertinent past medical history Surgical History Surgical History No pertinent past surgical history Social History Social History Smoking status: Current every day smoker Alcohol intake: never Gender identity (if verbalized by the patient): Male Exam Const: General: healthy appearing, no acute distress and alert Nutritional Appearance: well nourished Orientation/consciousness: patient oriented x3 Limitations: no limitations HENMT: Head: normal to inspection Mouth: Yes Normal oral and palatal mucosa present and Yes lip normal Throat: posterior oropharynx normal Eyes: EOM: EOMs intact bilaterally Chest: Chest palpation & inspection: normal inspection of the chest Resp: Effort & Inspection: normal respiratory effort Cardio: Rate: regular rate Rhythm: regular rhythm GI: Inspection: non-distended GI Palp: Yes Soft to palpation, No Tenderness to palpation present (GI), No Guarding due to palpation present (GI) and No Rigid due to palpation Auscultation: normal bowel sounds Back/Spine/Pelvis: Back: no CVA tenderness Skin: General skin exam: normal color Rashes: no rashes Wounds: no wounds Neuro: General: patient oriented x3, moves all extremities and CN's II-XI intact bilaterally Extrem: General: normal to inspection Psych: Mental Status: mental status grossly normal Affect: normal affect Attitude: cooperative Course Reevaluation(s) Reevaluation #1: I have discussed with patient that labs are normal and his exam is normal so no need for further imaging at this time. I will place on bland diet with omeprazole and miralax. He states he has PCP to follow up . Date: 12/15/22 Time: 17:30 Vital Signs Vital signs: Vital Signs Temperature 98.0 F 12/15/22 14:38 Pulse Rate 61 12/15/22 14:38 Respiratory Rate 16 12/15/22 14:38 Blood Pressure 114/72 12/15/22 14:38 Pulse Oximetry 100 12/15/22 14:38 Oxygen Delivery Room Air 12/15/22 14:38 Temperature 98.0 F 12/15/22 14:38 Pulse Rate 56 L 12/15/22 16:52
== END 2022-12-15 18:57 | disposition home or self-care (01) ==
PROVIDERS: Emergency Medicine; Emergency Provider General Practice; PCP Emergency Medicine
DX: R10.84 Generalized abdominal pain (principal); F17.210 Nicotine dependence, cigarettes, uncomplicated
CPT/HCPCS: 36415; 80053; 81003; 83690; 85025; 99283

== ENCOUNTER 2023-04-20 14:44 | Emergency (ER) | payer OTHER, SELFPAY ==
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
[2023-04-20 14:41] VITALS: BP 129/86; PULSE 70; RESP 17; TEMP 36.6; O2SAT 100
--- NOTE | 2023-04-20 14:48 | ECG_ITS ---
Measurements Intervals [place] Rate: 64 P: 62 MT: 148 QRS: 55 QRSD: 86 T: 42 QT: 379 QTc: 393 Interpretive Statements SINUS RHYTHM COMPARED TO ECG 06/25/2021 16:56:53 NO SIGNIFICANT CHANGES Electronically Signed On 04-20-2023 15:29:04 CDT by Tayler Milton M.D.
[2023-04-20 14:49] VITALS: O2SAT 100
[2023-04-20] MEDS: LORazepam INJ (*CRX) 2 MG/ML VIAL 1 MG IV PUSH (14:57)
[2023-04-20 15:01] LABS: Basophils Percent Auto 0.3 % (0.2-1.2); Eosinophils Absolute Auto 0.2 K/mm3 (0-0.3); Eosinophils Percent Auto 3.6 % (0-4.4); Hematocrit 45.7 % (42.0-52.0); Immature Granulocyte Absolute 0.01 K/mm3 (0.00-0.031); Immature Granulocyte Percent A 0.2 % (0-0.5); Lymphocytes Percent Auto 38.1 % (18.3-44.2); Mean Corpuscular HGB Conc 32.8 g/dl (32-36); Mean Corpuscular Hemoglobin 30.1 pg (26-34); Mean Corpuscular Volume 91.8 fl (80-100); Mean Platelet Volume 9.7 fl (7.4-10.4); Monocytes Absolute Auto 0.4 K/mm3 (0.1-0.6); Monocytes Percent Auto 6.1 % (2.6-8.5); Neutrophils Absolute Auto 3.1 K/mm3 (1.3-6.7); Neutrophils Percent Auto 51.7 % (45.5-73.1); Platelet Count Result 181 k/mm3 (150-375); Red Blood Count 4.98 M/mm3 (4.6-6.20); Red Cell Distribution Width 13.5 % (11.5-14.5)
--- NOTE | 2023-04-20 15:07 | ED.SOB ---
HPI - SOB/Dyspnea General Chief Complaint: Shortness of Breath/Dyspnea Stated Complaint: sob History of Present Illness HPI Narrative: 32-year-old male presents to the ER via EMS for evaluation of shortness of breath and chest pain. Patient also remarks that he has been experiencing anxiety intermittently over the past few months. Denies any radiating pain. Denies any alleviating or aggravating pain. Patient denies fever or chills. Denies cough. Related Data Home Medications Medication Instructions Recorded Confirmed acyclovir 400 mg tablet 400 mg PO DAILY 12/10/19 Allergies Allergy/AdvReac Type Severity Reaction Status Date / Time No Known Allergies Allergy Unknown Verified 04/20/23 14:49 Review of Systems Review of Systems: CONSTITUTIONAL: Denies fever, chills, or sweats. EYES: Denies visual changes, redness, or discharge. ENT: Denies rhinorrhea, congestion, sore throat, or otalgia. CARDIOVASCULAR: Reports chest pain RESPIRATORY: Reports cough and dyspnea. GASTROINTESTINAL: Denies abdominal pain, nausea, vomiting, or diarrhea. GENITOURINARY: Denies dysuria or hematuria. SKIN: Denies rash or itching. MUSCULOSKELETAL: Denies back pain, joint pain, or myalgia. NEUROLOGIC: Denies headache, numbness, dizziness, or weakness. PSYCHIATRIC: Denies anxiety or depression. [facility] Past Medical History Medical History No pertinent past medical history Surgical History Surgical History No pertinent past surgical history Social History Social History Smoking status: Current every day smoker Alcohol intake: never Gender identity (if verbalized by the patient): Male Exam Narrative: GENERAL: Well-appearing, well-nourished, no physical limitations, and in no acute distress. HEAD: Normocephalic, atraumatic. EYES: Conjunctivae normal, PERRLA and EOMI. CHEST: Clear to auscultation. No respiratory distress. No wheezes rales or rhonchi. No tenderness. HEART: Regular rate and rhythm. No murmur heard. Normal peripheral pulses. EXTREMITIES: Normal range of motion. No edema. No clubbing or cyanosis SKIN: Warm, dry, no rash. No noted wounds NEURO: No focal deficits. Alert and oriented x3. MAEW. CN's II-XI intact bilaterally, normal gait PSYCH: Cooperative. Normal mood and affect. Course Vital Signs Vital signs: Vital Signs Temperature 36.6 C 04/20/23 14:41 Pulse Rate 70 04/20/23 14:41 Respiratory Rate 17 04/20/23 14:41 Blood Pressure 129/86 04/20/23 14:41 Pulse Oximetry 100 04/20/23 14:41 Oxygen Delivery Room Air 04/20/23 14:41 Temperature 36.6 C 04/20/23 14:41 Pulse Rate 70 04/20/23 14:41 Respiratory Rate 17 04/20/23 14:41 Blood Pressure 129/86 04/20/23 14:41 Pulse Oximetry 100 04/20/23 14:49 Oxygen Delivery Room Air 04/20/23 14:49 MDM - SOB/Dyspnea MDM Narrative Medical decision making narrative: 32-year-old male presented to the emergency room for evaluation of shortness of breath, chest discomfort and anxiety. Exam showed no evidence of volume overload. EKG showed no signs of active ischemia. Single troponin was negative. Presentation not consistent with a PE D-dimer was within normal limits. Chest x-ray showed no acute cardiopulmonary processes. Heart score was 0 patient was given a milligram of Ativan and symptoms appeared to resolve. Will have patient follow-up with primary care provider Lab Data 04/20/23 14:54 04/20/23 14:54 Labs: Lab Results 04/20/23 04/20/23 Range/Units 14:54 15:15 WBC 6.0 (4.5-10.0) K/mm3 RBC 4.98 (4.6-6.20) M/mm3 Hgb 15.0 (14.0-18.0) g/dL Hct 45.7 (42.0-52.0) % MCV 91.8 (80-100) fl MCH 30.1 (26-34) pg MCHC 32.8 (32-36) g/dl RDW 13.5 (11.5-14.5) % Plt Count 181 (150-375) k/mm3
[2023-04-20 15:14] LABS: Alanine Aminotransferase 21 U/L (6-50); Albumin Level 4.3 g/dL (3.5-5.1); Alkaline Phosphatase 59 U/L (38-126); Anion Gap 6 mmol/L (8-16); Aspartate Amino Transferase 31 U/L (17-59); Bilirubin,Total 0.3 mg/dL (0.2-1.3); Blood Urea Nitrogen 8 mg/dL (9-20); Calcium 9.2 mg/dL (8.4-10.2); Carbon Dioxide 29 mmol/L (22-30); Chloride 106 mmol/L (98-107); Estimated Glomerular Filt Rate > 60; Glucose 87 mg/dL (65-110); Lipase 46 U/L (23-300); Potassium 4.3 mmol/L (3.4-5.0); Sodium 141 mmol/L (137-145)
[2023-04-20 15:31] LABS: Troponin I < 0.012 ng/mL (0.000-0.034)
[2023-04-20 15:37] LABS: D Dimer < 0.27 ug/mL (<0.48)
[2023-04-20 15:48] VITALS: BP 115/76; PULSE 60; RESP 18; O2SAT 100
[2023-04-20 15:50] VITALS: BP 115/76; PULSE 56; RESP 16; O2SAT 100
== END 2023-04-20 15:51 | disposition home or self-care (01) ==
PROVIDERS: Emergency Provider Nurse Practitioner Family; PCP Emergency Medicine
DX: R07.89 Other chest pain (principal); F41.9 Anxiety disorder, unspecified; F17.200 Nicotine dependence, unspecified, uncomplicated
CPT/HCPCS: 36415; 71046; 80053; 83690; 84484; 85025; 85380; 93005; 96374; 99284; J2060

== ENCOUNTER 2023-05-04 11:51 | Emergency (ER) | payer OTHER, SELFPAY ==
--- NOTE | ~2023-05-04 | XR_ITS ---
EXAMINATION: XR chest 2V DATE: 05/04/2023 12:24 INDICATION: Chest pain and dizziness with standing TECHNIQUE: PA and lateral views of the chest were obtained. COMPARISON: Chest radiograph dated 04/20/2023 FINDINGS: The lungs remain clear with no focal airspace opacities, pulmonary edema, pleural effusion or pneumot horax. The cardiomediastinal silhouette is normal. Mild upper thoracic levocurvature. IMPRESSION: 1. No acute cardiopulmonary disease. Reviewed, dictated and finalized at location A.
[2023-05-04 11:49] VITALS: BP 117/78; PULSE 68; RESP 17; TEMP 36.4; O2SAT 100
--- NOTE | 2023-05-04 11:53 | ECG_ITS ---
Measurements Intervals [place] Rate: 66 P: 60 [place]: 149 QRS: 57 QRSD: 89 T: 44 QT: 384 QTc: 403 Interpretive Statements SINUS RHYTHM POSSIBLE RIGHT VENTRICULAR CONDUCTION DELAY [RSR (QR) IN V1/V2] BORDERLINE ECG COMPARED TO ECG 04/20/2023 14:49:17 NO SIGNIFICANT CHANGES Electronically Signed On 05-04-2023 12:14:02 CDT by Bryon Kent M.D.
[2023-05-04 12:18] LABS: Basophils Percent Auto 0.6 % (0.2-1.2); Eosinophils Absolute Auto 0.3 K/mm3 (0-0.3); Eosinophils Percent Auto 4.8 % (0-4.4); Hematocrit 44.9 % (42.0-52.0); Hemoglobin 14.9 g/dL (14.0-18.0); Immature Granulocyte Absolute 0.03 K/mm3 (0.00-0.031); Immature Granulocyte Percent A 0.4 % (0-0.5); Lymphocytes Absolute Auto 2.48 K/mm3 (0.9-3.2); Lymphocytes Percent Auto 34.7 % (18.3-44.2); Mean Corpuscular HGB Conc 33.2 g/dl (32-36); Mean Corpuscular Hemoglobin 30.2 pg (26-34); Mean Corpuscular Volume 90.9 fl (80-100); Mean Platelet Volume 9.6 fl (7.4-10.4); Monocytes Absolute Auto 0.5 K/mm3 (0.1-0.6); Monocytes Percent Auto 7.4 % (2.6-8.5); Neutrophils Absolute Auto 3.7 K/mm3 (1.3-6.7); Neutrophils Percent Auto 52.1 % (45.5-73.1); Platelet Count Result 176 k/mm3 (150-375); Red Blood Count 4.94 M/mm3 (4.6-6.20); Red Cell Distribution Width 13.2 % (11.5-14.5); White Blood Count 7.2 K/mm3 (4.5-10.0)
[2023-05-04 12:27] LABS: Alanine Aminotransferase 24 U/L (6-50); Alkaline Phosphatase 52 U/L (38-126); Anion Gap 5 mmol/L (8-16); Aspartate Amino Transferase 21 U/L (17-59); Bilirubin,Total 0.3 mg/dL (0.2-1.3); Blood Urea Nitrogen 12 mg/dL (9-20); Calcium 8.9 mg/dL (8.4-10.2); Carbon Dioxide 30 mmol/L (22-30); Chloride 104 mmol/L (98-107); Estimated CRCL calculation 105 ml/min; Estimated Glomerular Filt Rate > 60; Glucose 73 mg/dL (65-110); Lipase 59 U/L (23-300); Potassium 4.4 mmol/L (3.4-5.0); Sodium 139 mmol/L (137-145)
[2023-05-04 12:28] LABS: INR 0.9; Prothrombin Time 12.5 Seconds (11.1-14.7)
[2023-05-04 12:29] LABS: Partial Thromboplastin Time 28.9 SECONDS (22.3-36.8)
[2023-05-04 12:39] LABS: Troponin I < 0.012 ng/mL (0.000-0.034)
--- NOTE | 2023-05-04 13:43 | ED.GENADULT ---
[facility] - General Adult General Chief complaint: Chest Pain Stated complaint: chest pain with exertion Time Seen by Provider: 05/04/23 11:56 Source: patient Mode of arrival: ambulatory Limitations: no limitations History of Present Illness HPI narrative: This is a 32-year-old male who presents to the ED with chief complaint of palpitations ongoing for the past several months and worse today. Patient states that he was recently prescribed a Holter monitor which she is now wearing from [facility]. He is to follow-up with cardiology in 2 weeks. Today he states he is having near syncope symptoms whenever he walks around or exerts himself. States he feels lightheaded and like he might pass out. He also states that he has palpitations or and feels like the heart is beating out of the chest. He states that going up stairs worsens symptoms. He denies any chest pain to me. He states that when he is just laying down symptoms are resolved. Denies shortness of breath, fevers, chills, cough, abdominal pain, nausea, vomiting, LOC, urinary problems. 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 He states his work environment is very hot and he does not drink a lot of water. Related Data Home Medications Medication Instructions Recorded Confirmed acyclovir 400 mg tablet 400 mg PO DAILY 12/10/19 Allergies Allergy/AdvReac Type Severity Reaction Status Date / Time No Known Allergies Allergy Unknown Verified 04/20/23 14:49 Review of Systems Review of Systems: All systems as dictated in [facility] Past Medical History Medical History No pertinent past medical history Surgical History Surgical History No pertinent past surgical history Social History Social History Smoking status: Current every day smoker Alcohol intake: never Gender identity (if verbalized by the patient): Male Exam Narrative: GENERAL: Well-appearing, well-nourished, and in no acute distress. HEAD: Normocephalic, atraumatic. EYES: PERRLA and EOMI. ENT: Nares clear, no rhinorrhea or epistaxis. Mucous membranes moist. Oropharynx without tonsillar hypertrophy exudate or other lesions. NECK: Supple. No adenopathy or masses. CHEST: No respiratory distress. Clear to auscultation. No wheezes rales or rhonchi HEART: Regular rate and rhythm. No murmur heard. Normal peripheral pulses. ABDOMEN: Soft, nontender, nondistended, normal active bowel sounds. MSK: Normal range of motion. No edema. SKIN: Warm, dry, no rash. NEURO: Alert and oriented x3. No focal deficits. PSYCH: Normal mood and affect. Course Course Emergency Course: Reevaluation 1400: Patient was ambulated throughout the department and did not experience any more symptoms of feeling lightheaded, dizzy or heart palpitations. He remains symptom-free and resting comfortably. Vital Signs Vital signs: Vital Signs Temperature 97.6 F 05/04/23 11:49 Pulse Rate 68 05/04/23 11:49 Respiratory Rate 17 05/04/23 11:49 Blood Pressure 117/78 05/04/23 11:49 Pulse Oximetry 100 05/04/23 11:49 Oxygen Delivery Room Air 05/04/23 11:49 Temperature 97.6 F 05/04/23 11:49 Pulse Rate 65 05/04/23 14:44 Respiratory Rate 20 05/04/23 13:56 Blood Pressure 106/77 05/04/23 14:44 Pulse Oximetry 100 05/04/23 13:56 Oxygen Delivery Room Air 05/04/23 11:49 Medical Decision Making MDM Narrative Medical decision making narrative: This is a 32-year-old male who presents to the ED with chief complaint of heart palpitations ongoing for the past several months. Triage note mentions chest pain but patient denies any chest pain to me. Vitals are normal. Exam is benign. EKG unchanged from previous 2 weeks ago.
[2023-05-04 13:56] VITALS: PULSE 59; RESP 20; O2SAT 100
[2023-05-04 14:41] VITALS: BP 106/74; PULSE 67
[2023-05-04 14:42] VITALS: BP 98/74; PULSE 63
[2023-05-04 14:44] VITALS: BP 106/77; PULSE 65
[2023-05-04 15:26] LABS: Troponin I < 0.012 ng/mL (0.000-0.034)
== END 2023-05-04 17:00 | disposition home or self-care (01) ==
PROVIDERS: Emergency Medicine; Emergency Provider Physician Assistant; PCP Emergency Medicine
DX: R00.2 Palpitations (principal); F17.200 Nicotine dependence, unspecified, uncomplicated
CPT/HCPCS: 36415; 71046; 80053; 83690; 84484; 85025; 85610; 85730; 93005; 99284

== ENCOUNTER 2023-06-13 09:55 | Emergency (ER) | payer OTHER, SELFPAY ==
[2023-06-13] VITALS (20 sets, daily range): BP systolic 96–119; BP diastolic 68–81; PULSE 56–70; RESP 13–21; TEMP 36.8; O2SAT 96–100
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
--- NOTE | 2023-06-13 10:06 | ECG_ITS ---
Measurements Intervals [place] Rate: 67 P: 56 [place]: 154 QRS: 55 QRSD: 86 T: 46 QT: 375 QTc: 398 Interpretive Statements SINUS RHYTHM POSSIBLE RIGHT VENTRICULAR CONDUCTION DELAY [RSR (QR) IN V1/V2] BORDERLINE ECG COMPARED TO ECG 05/04/2023 11:55:59 NO SIGNIFICANT CHANGES Electronically Signed On 06-13-2023 12:22:56 CDT by Bryon Kent M.D.
--- NOTE | 2023-06-13 10:11 | ED.SOB ---
HPI - SOB/Dyspnea General Chief Complaint: Shortness of Breath/Dyspnea Stated Complaint: dyspnea x2 days Time Seen by Provider: 06/13/23 09:57 Source: patient Mode of arrival: ambulatory Limitations: no limitations History of Present Illness HPI Narrative: This is a 32-year-old male that presents to the emergency department for increasing anxiety. Reports over the last year he has been experiencing worsening anxiety and panic attacks. Reports recently he has a panic attack multiple times daily. He has been evaluated by several hospitals for this. He takes hydroxyzine as needed. He also reports he has been having worsening reflux lately. He does not take anything for reflux. Denies fever, cough, or lower extremity edema. Related Data Allergies Allergy/AdvReac Type Severity Reaction Status Date / Time No Known Allergies Allergy Unknown Verified 05/26/23 17:34 Review of Systems Review of Systems: CONSTITUTIONAL: Denies fever CARDIOVASCULAR: Reports chest pain. Denies palpitations, or edema. RESPIRATORY: Reports dyspnea. Denies cough PSYCHIATRIC: Reports anxiety All systems reviewed & are unremarkable except as noted in HPI and below PMFSH Past Medical History Medical History GERD (gastroesophageal reflux disease) Globus sensation Tinnitus Surgical History Surgical History H/O hernia repair (~1995) Family History Family History Father Alcoholism Mother Heart disease Grandparent Hypertension Cerebrovascular accident Heart disease Social History Social History Social History: Caffeine- coffee Smoking status: Current every day smoker Tobacco type: cigars Additional smoking assessment comments: 4-5 cigars daily Alcohol intake: never Substance use: never Substance use type: does not use Lack of Transportation: YES Lack of Food: Never True Current Housing: I Have Housing Concerned About Future Housing: No Difficulty Paying Gas/Electric Bills: No Difficulty Paying for Meds: No Currently Unemployed: No Education: High School Diploma/GED Difficulty w/ Childcare or Family Care: No Gender identity (if verbalized by the patient): Male Agree to blood products: Yes Exam Narrative: GENERAL: Well-appearing, well-nourished, and in no acute distress. HEAD: Normocephalic, atraumatic. EYES: PERRLA and EOMI. ENT: Nares clear, no rhinorrhea or epistaxis. Mucous membranes moist. Oropharynx without tonsillar hypertrophy exudate or other lesions. NECK: No JVD CHEST: Clear to auscultation. No respiratory distress. No wheezes rales or rhonchi HEART: Regular rate and rhythm. No murmur heard. Normal peripheral pulses. EXTREMITIES: Normal range of motion. No edema. SKIN: Warm, dry, no rash. NEURO: No focal deficits. Alert and oriented x3. PSYCH: Normal mood and affect Course Course Emergency Course: Patient updated on work-up and agrees with plan of care Vital Signs Vital signs: Vital Signs Temperature 98.3 F 06/13/23 09:55 Pulse Rate 67 06/13/23 09:55 Respiratory Rate 18 06/13/23 09:55 Blood Pressure 119/73 06/13/23 09:55 Pulse Oximetry 100 06/13/23 09:55 Oxygen Delivery Room Air 06/13/23 09:55 Temperature 98.3 F 06/13/23 09:55 Pulse Rate 67 06/13/23 09:55 Respiratory Rate 18 06/13/23 09:55 Blood Pressure 119/73 06/13/23 09:55 Pulse Oximetry 100 06/13/23 09:55 Oxygen Delivery Room Air 06/13/23 10:10 MDM - SOB/Dyspnea MDM Narrative Medical decision making narrative: Patient presents to the emergency department for worsening anxiety over the last year. He was also complaining of some dyspnea over the last couple of days and worsening reflux. He is afebrile and nontoxic-appearing. His v
[2023-06-13] MEDS: FAMOTIDINE 20 MG/2 ML VIAL IV PUSH (10:27)
[2023-06-13 10:30] LABS: Basophils Percent Auto 0.3 % (0.2-1.2); Eosinophils Absolute Auto 0.2 K/mm3 (0-0.3); Eosinophils Percent Auto 3.5 % (0-4.4); Hematocrit 45.4 % (42.0-52.0); Hemoglobin 15.3 g/dL (14.0-18.0); Immature Granulocyte Absolute 0.02 K/mm3 (0.00-0.031); Immature Granulocyte Percent A 0.3 % (0-0.5); Lymphocytes Absolute Auto 1.93 K/mm3 (0.9-3.2); Lymphocytes Percent Auto 27.9 % (18.3-44.2); Mean Corpuscular HGB Conc 33.7 g/dl (32-36); Mean Corpuscular Hemoglobin 30.3 pg (26-34); Mean Corpuscular Volume 89.9 fl (80-100); Monocytes Absolute Auto 0.5 K/mm3 (0.1-0.6); Monocytes Percent Auto 7.7 % (2.6-8.5); Neutrophils Absolute Auto 4.2 K/mm3 (1.3-6.7); Neutrophils Percent Auto 60.3 % (45.5-73.1); Platelet Count Result 181 k/mm3 (150-375); Red Blood Count 5.05 M/mm3 (4.6-6.20); White Blood Count 6.9 K/mm3 (4.5-10.0)
[2023-06-13] MEDS: ACETAMINOPHEN 500 MG TABLET 1000 MG PO (10:31)
[2023-06-13 10:41] LABS: Alanine Aminotransferase 22 U/L (6-50); Albumin Level 4.4 g/dL (3.5-5.1); Alkaline Phosphatase 53 U/L (38-126); Anion Gap 3 mmol/L (8-16); Aspartate Amino Transferase 24 U/L (17-59); Bilirubin,Total 0.5 mg/dL (0.2-1.3); Blood Urea Nitrogen 12 mg/dL (9-20); Calcium 9.3 mg/dL (8.4-10.2); Carbon Dioxide 31 mmol/L (22-30); Chloride 104 mmol/L (98-107); Estimated CRCL calculation 105 ml/min; Estimated Glomerular Filt Rate > 60; Glucose 79 mg/dL (65-110); Potassium 4.1 mmol/L (3.4-5.0); Sodium 138 mmol/L (137-145)
[2023-06-13 10:56] LABS: Appearance Urine Clear (Clear); Bilirubin Urine Negative (Negative); Blood Urine Negative (Negative); Color Urine Yellow (Yellow); Glucose Urine UA Negative (Negative); Ketones Urine Negative (Negative); Leukocyte Esterase Ur Negative LEU/UL (Negative); Nitrate Urine Negative (Negative); Protein Urine Negative (Negative); pH Urine 7.5 (5.0-9.0)
[2023-06-13 10:56] LABS: Troponin I < 0.012 ng/mL (0.000-0.034)
[2023-06-13 10:59] LABS: Add Urine Microscopic? NO
[2023-06-13 11:00] LABS: Ethanol < 10 mg/dL (<10)
[2023-06-13 11:07] LABS: D Dimer 0.25 ug/mL (<0.48)
[2023-06-13 11:12] LABS: Amphetamine Screen Urine Negative (Negative); Barbiturate Screen Urine Negative (Negative); Benzodiazepines Screen Urine Negative (Negative); Cannabinoid Screen Urine Negative (Negative); Cocaine Screen Urine Negative (Negative); Methadone Screen Urine Negative (Negative); Opiate Screen Urine Negative (Negative); Phencyclidine Screen Urine Negative (Negative)
[2023-06-13 11:25] LABS: Thyroid Stimulating Hormone Reflex 0.866 uIU/mL (0.465-4.68)
== END 2023-06-13 12:37 | disposition home or self-care (01) ==
PROVIDERS: Emergency Medicine; Emergency Provider Physician Assistant; PCP Emergency Medicine
DX: R06.00 Dyspnea, unspecified (principal); F41.9 Anxiety disorder, unspecified; F17.210 Nicotine dependence, cigarettes, uncomplicated; K21.9 Gastro-esophageal reflux disease without esophagitis
CPT/HCPCS: 36415; 71046; 80053; 80307; 81003; 84443; 84484; 85025; 85380; 93005; 96374; 99284; A9270

== ENCOUNTER 2023-08-26 12:18 | Emergency (ER) | payer OTHER, SELFPAY ==
[2023-08-26] VITALS (10 sets, daily range): BP systolic 110–136; BP diastolic 70–85; PULSE 61–81; RESP 13–20; TEMP 36.4; O2SAT 98–100
--- NOTE | ~2023-08-26 | XR_ITS ---
Clinical Indication: Chest pain PA and lateral views of the chest: Comparison: 06/13/2023 Findings: The lungs are clear, without evidence of focal consolidation or pleural effusion. Cardiome diastinal silhouette is within normal limits. Bones and soft tissues are unremarkable. Impression: Normal chest. Reviewed, dictated and finalized at location . MER BLOCKER Impression: Normal chest.
--- NOTE | ~2023-08-26 | CT_ITS ---
EXAMINATION: CT abdomen pelvis w con INDICATION: Abdominal pain TECHNIQUE: Computed tomographic images of the abdomen and pelvis were obtained after the administrati on of 100 cc of Omnipaque 350 intravenous contrast. The dose-length product (DLP) was 629.31 mGy-cm. Automated exposure control and iterative reconstruction technique were employed. COMPARISON: None available FINDINGS: Minimal dependent atelectasis is present in the lung bases. The heart size is normal. Punct ate calcifications in an otherwise normal spleen likely represent healed granulomatous disease. The p ancreas, gallbladder, and adrenal glands are normal. There is a 12 mm hypoattenuating lesion at the j unction of liver segment /VII (image 41). The kidneys are unremarkable. No pathologically enlarged abdominal or pelvic lymph nodes are identified. The appendix is normal. There is an umbilical hernia containing fat and the anterior wall of a nonobstructed loop of small bowel. There is mild distention of the urinary bladder. IMPRESSION: 1. No CT correlate for the patient's symptoms. 2. 12 mm hypoattenuating lesion of the right hepatic lobe, likely benign in the absence of known jasmina gnancy however, follow-up with nonemergent MRI without and with contrast is recommended. Reviewed, dictated and finalized at location B. CUTTER IMPRESSION: 1. No CT correlate for the patient's symptoms. 2. 12 mm hypoattenuating lesion of the right hepatic lobe, likely benign in the absence of known malignancy however, follow-up with nonemergent MRI without an d with contrast is recommended.
--- NOTE | 2023-08-26 12:20 | ECG_ITS ---
Measurements Intervals [place] Rate: 79 P: 64 [place]: 151 QRS: 59 QRSD: 89 T: 43 QT: 358 QTc: 411 Interpretive Statements SINUS RHYTHM CONSIDER MINOR RV CONDUCTION DELAY BORDERLINE ECG COMPARED TO ECG 06/13/2023 10:02:26 NO CHANGE t Electronically Signed On 08-26-2023 15:23:15 ALUMNI COORDINATOR by Paulino Clayton M.D.
[2023-08-26 12:46] LABS: Basophils Percent Auto 0.6 % (0.2-1.2); Eosinophils Absolute Auto 0.3 K/mm3 (0-0.3); Eosinophils Percent Auto 5.1 % (0-4.4); Hematocrit 46.7 % (42.0-52.0); Hemoglobin 15.3 g/dL (14.0-18.0); Immature Granulocyte Absolute 0.01 K/mm3 (0.00-0.031); Immature Granulocyte Percent A 0.1 % (0-0.5); Lymphocytes Absolute Auto 2.37 K/mm3 (0.9-3.2); Lymphocytes Percent Auto 35.5 % (18.3-44.2); Mean Corpuscular HGB Conc 32.8 g/dl (32-36); Mean Corpuscular Hemoglobin 29.3 pg (26-34); Mean Corpuscular Volume 89.3 fl (80-100); Mean Platelet Volume 9.9 fl (7.4-10.4); Monocytes Absolute Auto 0.4 K/mm3 (0.1-0.6); Monocytes Percent Auto 6.1 % (2.6-8.5); Neutrophils Absolute Auto 3.5 K/mm3 (1.3-6.7); Neutrophils Percent Auto 52.6 % (45.5-73.1); Platelet Count Result 171 k/mm3 (150-375); Red Blood Count 5.23 M/mm3 (4.6-6.20); Red Cell Distribution Width 12.6 % (11.5-14.5); White Blood Count 6.7 K/mm3 (4.5-10.0)
[2023-08-26 12:55] LABS: Alanine Aminotransferase 20 U/L (6-50); Albumin Level 4.6 g/dL (3.5-5.1); Alkaline Phosphatase 53 U/L (38-126); Anion Gap 8 mmol/L (8-16); Aspartate Amino Transferase 25 U/L (17-59); Bilirubin,Total 0.5 mg/dL (0.2-1.3); Blood Urea Nitrogen 10 mg/dL (9-20); Calcium 9.8 mg/dL (8.4-10.2); Carbon Dioxide 29 mmol/L (22-30); Chloride 104 mmol/L (98-107); Estimated CRCL calculation 111 ml/min; Estimated Glomerular Filt Rate > 60; Glucose 79 mg/dL (65-110); Lipase 63 U/L (23-300); Potassium 4.1 mmol/L (3.4-5.0); Sodium 141 mmol/L (137-145)
[2023-08-26 12:57] LABS: INR 0.9; Prothrombin Time 12.4 Seconds (11.1-14.7)
[2023-08-26 12:58] LABS: Partial Thromboplastin Time 27.8 SECONDS (22.3-36.8)
[2023-08-26 13:07] LABS: Troponin I < 0.012 ng/mL (0.000-0.034)
[2023-08-26] MEDS: BELLADONNA ALK/PHENOB ELIX 10 ML, MAG HYDROX/ALUMINUM HYD/SIMETH 30 ML, LIDOCAINE HCL 2... PO (14:35)
[2023-08-26] MEDS: ACETAMINOPHEN 500 MG TABLET 1000 MG PO (14:36)
[2023-08-26] MEDS: SODIUM CHLORIDE 0.9% IV 1,000 ML 999 ML IV CONT (14:36)
--- NOTE | 2023-08-26 15:30 | ECG_ITS ---
Measurements Intervals [place] Rate: 54 P: 60 [place]: 167 QRS: 52 QRSD: 97 T: 41 QT: 416 QTc: 397 Interpretive Statements SINUS BRADYCARDIA OTHERWISE NORMAL ECG COMPARED WITH 08/26/2023 EARLIER TODAY HEART RATE REDUCED/NO OTHER DEFER Electronically Signed On 08-26-2023 15:33:11 TONGUE PRESSER by Paulino Clayton M.D.
--- NOTE | 2023-08-26 15:39 | ED.GENADULT ---
HPI - General Adult General Chief complaint: Chest Pain Stated complaint: ABD Pain, Chest Pain for two weeks Time Seen by Provider: 08/26/23 13:30 Source: patient Mode of arrival: ambulatory Limitations: no limitations History of Present Illness HPI narrative: Patient is a 33-year-old male who presents the ED with multiple complaints, chest pain, headache, abdominal pain. Patient reports having abdominal pain, across his upper abdomen for the last 3 weeks. States pain is worse with eating. He also reports having chest pain, along the lateral edges of his chest wall for the last 1 week. States pain has been fairly constant. Denies aggravating or alleviating factors to this pain. Denies recent injury or strenuous activity. He also reports having several days of headache with intermittent dizziness. Patient has not tried anything for his symptoms over the last couple of weeks. Denies changes symptoms today to bring him to the ED. Denies nausea, vomiting, diarrhea, constipation, fevers, neck pain, numbness, weakness, shortness of breath, cough or cold symptoms. Related Data Allergies Allergy/AdvReac Type Severity Reaction Status Date / Time No Known Allergies Allergy Unknown Verified 08/26/23 13:32 Review of Systems Review of Systems: CONSTITUTIONAL: Denies fever, chills, or sweats. ENT: Denies rhinorrhea, congestion, sore throat. CARDIOVASCULAR: See HPI. RESPIRATORY: Denies cough or dyspnea. GASTROINTESTINAL: See HPI. GENITOURINARY: Denies dysuria or hematuria. MUSCULOSKELETAL: see HPI. NEUROLOGIC: See HPI. All systems reviewed & are unremarkable except as noted in HPI and below PMFSH Past Medical History Medical History GERD (gastroesophageal reflux disease) Globus sensation Tinnitus Surgical History Surgical History H/O hernia repair (~1995) Family History Family History Father Alcoholism Mother Heart disease Grandparent Hypertension Cerebrovascular accident Heart disease Social History Social History Social History: Caffeine- coffee Smoking status: Current every day smoker Tobacco type: cigars Additional smoking assessment comments: 4-5 cigars daily Alcohol intake: never Substance use: never Substance use type: does not use Lack of Transportation: YES Lack of Food: Never True Current Housing: I Have Housing Concerned About Future Housing: No Difficulty Paying Gas/Electric Bills: No Difficulty Paying for Meds: No Currently Unemployed: No Education: High School Diploma/GED Difficulty w/ Childcare or Family Care: No Gender identity (if verbalized by the patient): Male Agree to blood products: Yes Exam Narrative: GENERAL: Well appearing, well-nourished, non-toxic, in no acute distress. HEAD: Normocephalic, atraumatic. EYES: PERRL/EOMI, conjunctiva clear. NECK: No meningeal signs. RESPIRATORY: Airway patent, respirations nonlabored. Clear to auscultation bilaterally, no rales, rhonchi, wheezing. CARDIOVASCULAR: Regular rate and rhythm without murmurs, rubs, or gallops. ABDOMINAL: Soft, mild tenderness in epigastric region, no other significant reproducible focal tenderness. Nondistended. Normoactive BS. MUSCULOSKELETAL: Moves all extremities. No gross deformities. TTP along bilateral lateral chest wall, reproducing pain. SKIN: Warm, dry, normal color. NEURO: A&O X3. Speech clear. Cranial nerves II-XII grossly intact. Steady gait. No ataxic movements. No focal deficits. PSYCHIATRIC: Appropriate mood and affect. Normal interaction. Course Vital Signs Vital signs: Vital Signs Temperature 97.6 F 08/26/23 12:20 Pulse Rate 81 08/26/23 12:20 Respiratory Rate 18 08/26/23 12:20 Blood Pressure 136
[2023-08-26] MEDS: KETOROLAC 30 MG/ML VIAL (*BKC) IV PUSH (15:47)
[2023-08-26 16:05] LABS: Troponin I < 0.012 ng/mL (0.000-0.034)
== END 2023-08-26 16:50 | disposition home or self-care (01) ==
PROVIDERS: Emergency Medicine; Emergency Provider Physician Assistant; PCP Emergency Medicine
DX: R07.89 Other chest pain (principal); R51.9 Headache, unspecified; R10.10 Upper abdominal pain, unspecified; K76.9 Liver disease, unspecified; K21.9 Gastro-esophageal reflux disease without esophagitis; F17.290 Nicotine dependence, other tobacco product, uncomplicated; R94.31 Abnormal electrocardiogram [ECG] [EKG]; R00.1 Bradycardia, unspecified
CPT/HCPCS: 36415; 71046; 74177; 80053; 83690; 84484; 85025; 85610; 85730; 93005; 96361; 96374; 99284; A9270; J1885; J7030; Q9967

== ENCOUNTER 2023-09-04 13:19 | Emergency (ER) | payer OTHER, SELFPAY ==
--- NOTE | ~2023-09-04 | CT_ITS ---
EXAMINATION: CT brain wo con DATE: 09/04/2023 14:36 INDICATION: headache, worsening . TECHNIQUE: Computed tomography (CT) of the head was performed without intravenous contrast. The mA wa s adjusted according to patient size. Iterative reconstruction technique was employed. The dose-lengt h product was 605.33 mGy-cm. COMPARISON: None. FINDINGS: No acute intracranial hemorrhage or extra-axial fluid collection. No hydrocephalus, mass, or herniation. No acute ischemic infarct. Unremarkable dural venous sinus attenuation. No acute osseous abnormality. Small volume bilateral mastoid fluid without erosion or middle ear fluid, nodular mucosal thickening in the right sphenoid and a posterior left ethmoid sinus, the remaining aerated spaces are clear. IMPRESSION: No acute intracranial process. Reviewed, dictated and finalized at location K. [employer]
[2023-09-04 13:15] VITALS: BP 125/75; PULSE 88; RESP 20; O2SAT 100
[2023-09-04 13:22] VITALS: PULSE 79; O2SAT 100
--- NOTE | 2023-09-04 14:00 | ED.HA ---
HPI - Headache General Chief Complaint: Headache Stated Complaint: chest pressure and SOB x 2 weeks Time Seen by Provider: 09/04/23 13:59 Source: patient Mode of arrival: ambulatory Limitations: no limitations History of Present Illness HPI Narrative: patient is a 33 year old male with history as below presents emergency department today with a steady gait for headache, anxiety/chest discomfort and ringing in his ears. states he has been dealing with symptoms for a while now and he feels like something is wrong. denies fever, chills, fall, neck pain, numbness/tingling to upper or lower extremities, cough, drug use, or any other symptoms. Related Data Allergies Allergy/AdvReac Type Severity Reaction Status Date / Time No Known Allergies Allergy Unknown Verified 09/04/23 13:24 [facility] Past Medical History Medical History GERD (gastroesophageal reflux disease) Globus sensation Tinnitus Surgical History Surgical History H/O hernia repair (~1995) Family History Family History Father Alcoholism Mother Heart disease Grandparent Hypertension Cerebrovascular accident Heart disease Social History Social History Social History: Caffeine- coffee Smoking status: Current every day smoker Tobacco type: cigars Additional smoking assessment comments: 4-5 cigars daily Alcohol intake: never Substance use: never Substance use type: does not use Lack of Transportation: YES Lack of Food: Never True Current Housing: I Have Housing Concerned About Future Housing: No Difficulty Paying Gas/Electric Bills: No Difficulty Paying for Meds: No Currently Unemployed: No Education: High School Diploma/GED Difficulty w/ Childcare or Family Care: No Gender identity (if verbalized by the patient): Male Agree to blood products: Yes Exam Narrative: GENERAL: Well-appearing, well-nourished, and in no acute distress. HEAD: Normocephalic, atraumatic. EYES: PERRLA and EOMI. ENT: Nares clear, no rhinorrhea or epistaxis. Mucous membranes moist. there is bilateral ear fullness without any acute infection noted. NECK: Supple. CHEST: Clear to auscultation. No respiratory distress. HEART: Regular rate and rhythm. No murmur heard. Normal peripheral pulses. ABDOMEN: Soft, nontender, nondistended, normal active bowel sounds. EXTREMITIES: Normal range of motion. No edema. SKIN: Warm, dry, no rash. NEURO: No focal deficits. Alert and oriented x3. CN II-XII grossly intact. steady gait. negative Romberg. PSYCH: Normal mood and affect. Course Vital Signs Vital signs: Vital Signs Pulse Rate 88 09/04/23 13:15 Respiratory Rate 20 09/04/23 13:15 Blood Pressure 125/75 09/04/23 13:15 Pulse Oximetry 100 09/04/23 13:15 Oxygen Delivery Room Air 09/04/23 13:15 Pulse Rate 64 09/04/23 15:52 Respiratory Rate 17 09/04/23 15:52 Blood Pressure 107/79 09/04/23 15:52 Pulse Oximetry 100 09/04/23 15:52 Oxygen Delivery Room Air 09/04/23 13:22 MDM - Headache MDM Narrative Medical decision making narrative: Patient has been seen in the ER multiple times the last few months for anxiety, chest pain. Presents today with similar symptoms as well as a headache. Patient is hemodynamically stable. No focal neurological or cranial nerve deficits on exam. No meningeal signs. The headache was gradual in onset, it is not exertional and does not appear consistent with subarachnoid hemorrhage or intracranial bleeding. No trauma. Patient very concerned about his head and other being something wrong. He has a normal neurological exam. Did obtain CT scan which was abnormal. We did discuss trying to take some medications to help with the fluid in his ears and e
--- NOTE | 2023-09-04 14:21 | PC.NURSE ---
Pt refused Atarax PO
[2023-09-04 14:54] VITALS: BP 109/75; PULSE 67; RESP 18; O2SAT 100
[2023-09-04 15:52] VITALS: BP 107/79; PULSE 64; RESP 17; O2SAT 100
== END 2023-09-04 15:54 | disposition home or self-care (01) ==
PROVIDERS: Emergency Provider Nurse Practitioner; PCP Emergency Medicine
DX: R51.9 Headache, unspecified (principal); F41.9 Anxiety disorder, unspecified; H93.13 Tinnitus, bilateral; F17.210 Nicotine dependence, cigarettes, uncomplicated; K21.9 Gastro-esophageal reflux disease without esophagitis
CPT/HCPCS: 70450; 99284; A9270

== ENCOUNTER 2023-11-30 08:30 | Outpatient (CLI) | payer OTHER, SELFPAY ==
--- NOTE | ~2023-11-30 | XR_ITS ---
EXAMINATION: XR barium swallow DATE: 11/30/2023 09:14 INDICATION: Esophagitis, constant sore throat and feeling of food getting stuck in esophagus. TECHNIQUE: The patient drank thick barium, gas-producing crystals, and thin barium. Fluoroscopic spot radiographs of the hypopharynx and esophagus were obtained. Fluoroscopy exposure time was 1.5 minut es. Total DAP was 13.447 Gycm^2. A total of 1199 fluoroscopic images were recorded. COMPARISON: None. FINDINGS: The pharynx is symmetric and without evidence of mass lesion or mucosal irregularity. The e sophagus is normal without mass or stricture. Esophageal motility is normal. There is a small sliding -type hiatal hernia with gastroesophageal junction extending up to 5 cm above the level of the diaphr agm. A single episode of gastroesophageal reflux of a moderate amount of contrast to the level of the upper thoracic esophagus was observed with provocative maneuvers. IMPRESSION: 1. Small sliding-type hiatal hernia with gastroesophageal reflux. Reviewed, dictated and finalized at location A.
== END 2023-11-30 08:31 | disposition home or self-care (01) ==
PROVIDERS: PCP Emergency Medicine; Visit Provider Otolaryngology
DX: R09.89 Other specified symptoms and signs involving the circulatory and respiratory systems (principal); K44.9 Diaphragmatic hernia without obstruction or gangrene; K21.00 Gastro-esophageal reflux disease with esophagitis, without bleeding
CPT/HCPCS: 74220

== ENCOUNTER 2024-06-29 12:08 | Emergency (ER) | payer OTHER, SELFPAY ==
--- NOTE | ~2024-06-29 | XR_ITS ---
EXAMINATION: XR chest 2V 06/29/2024 12:49 INDICATION: Chest pain PROCEDURE: 2 view chest COMPARISON: Comparison to multiple prior studies sequentially, with oldest reviewed study dated 04/20. FINDINGS: The lungs are clear. The cardiomediastinal silhouette is within normal limits. There are no pleural effusions. There is no pneumothorax suspected. IMPRESSION: 1: NO ACUTE CARDIOPULMONARY DISEASE. Reviewed, dictated and finalized at location B.
--- NOTE | 2024-06-29 12:10 | ECG_ITS ---
Test Date: 2024-06-29 12:17:23 Measurements Intervals [place] Rate: 70 P: 49 RI: 156 QRS: 45 QRSD: 86 T: 32 QT: 376 QTc: 408 Interpretive Statements SINUS RHYTHM No previous ECG available for comparison Electronically Signed On 06-29-2024 15:38:22 CDT by Tayler Milton M.D.
[2024-06-29 12:21] VITALS: BP 124/70; PULSE 70; RESP 16; TEMP 36.2; O2SAT 98
[2024-06-29] MEDS: ASPIRIN 81 MG CHEWABLE TABLET 324 MG PO (13:26)
[2024-06-29 13:27] VITALS: O2SAT 98
[2024-06-29 13:29] VITALS: BP 115/72; PULSE 62; RESP 15; O2SAT 99
[2024-06-29 13:57] LABS: Basophils Percent Auto 0.5 % (0.2-1.2); Eosinophils Absolute Auto 0.2 K/mm3 (0-0.3); Hematocrit 43.9 % (42.0-52.0); Hemoglobin 14.4 g/dL (14.0-18.0); Immature Granulocyte Absolute 0.02 K/mm3 (0.00-0.031); Immature Granulocyte Percent A 0.3 % (0-0.5); Lymphocytes Absolute Auto 2.21 K/mm3 (0.9-3.2); Lymphocytes Percent Auto 36.8 % (18.3-44.2); Mean Corpuscular HGB Conc 32.8 g/dl (32-36); Mean Corpuscular Hemoglobin 28.3 pg (26-34); Mean Corpuscular Volume 86.2 fl (80-100); Mean Platelet Volume 9.4 fl (7.4-10.4); Monocytes Absolute Auto 0.5 K/mm3 (0.1-0.6); Neutrophils Absolute Auto 3.1 K/mm3 (1.3-6.7); Neutrophils Percent Auto 51.4 % (45.5-73.1); Platelet Count Result 192 k/mm3 (150-375); Red Blood Count 5.09 M/mm3 (4.6-6.20); Red Cell Distribution Width 13.2 % (11.5-14.5)
[2024-06-29 14:08] LABS: INR 0.8
[2024-06-29 14:09] LABS: Partial Thromboplastin Time 26.4 Seconds (22.3-36.8)
[2024-06-29 14:13] LABS: Alanine Aminotransferase 39 U/L (6-50); Albumin Level 4.2 g/dL (3.5-5.1); Alkaline Phosphatase 59 U/L (38-126); Anion Gap 8 mmol/L (4-12); Aspartate Amino Transferase 29 U/L (17-59); Bilirubin,Total 0.5 mg/dL (0.2-1.3); Blood Urea Nitrogen 12 mg/dL (9-20); Calcium 8.9 mg/dL (8.4-10.2); Carbon Dioxide 29 mmol/L (22-30); Chloride 103 mmol/L (98-107); Estimated CRCL calculation 130 ml/min; Estimated Glomerular Filt Rate > 60; Glucose 79 mg/dL (65-110); Lipase 57 U/L (23-300); Potassium 3.9 mmol/L (3.4-5.0); Sodium 140 mmol/L (137-145)
[2024-06-29 14:23] VITALS: BP 117/72; PULSE 53; RESP 17; O2SAT 96
[2024-06-29 14:24] LABS: Troponin I < 0.012 ng/mL (0.000-0.034)
--- NOTE | 2024-06-29 14:27 | ED_ITS ---
HPI - Chest Pain General Chief Complaint: Chest Pain Stated Complaint: chest pain x3d Time Seen by Provider: 06/29/24 13:19 History of Present Illness HPI narrative: Patient is a 33-year-old male who presents ER with chest pain ongoing for 3 days. It occurs when he last. He is concerned it may be respiratory. No fevers or chills or sweats. No productive cough. No sinus congestion or sore throat. He had a coronary CT scan performed today as part of a stress test with [facility] vascular. He reports he gets occasional chest pains and has had Holter monitors in the past but has no known coronary disease has never had an MO. no exertional chest discomfort. Related Data Allergies Allergy/AdvReac Type Severity Reaction Status Date / Time No Known Allergies Allergy Unknown Verified 06/29/24 12:09 Review of Systems Review of Systems: All systems reviewed & are unremarkable except as noted in HPI and below Constitutional: Constitutional: Reports no additional constitutional complaints Cardiovascular: Cardiovascular: Reports no additional cardiovascular complaints Respiratory: Respiratory: Reports no additional respiratory complaints Gastrointestinal: Gastrointestinal: Reports no additional gastrointestinal complaints [facility] Past Medical History Medical History GERD (gastroesophageal reflux disease) Globus sensation Tinnitus Surgical History Surgical History H/O hernia repair (~1995) Family History Family History Father Alcoholism Mother Heart disease Grandparent Hypertension Cerebrovascular accident Heart disease Social History Social History Social History: Caffeine- coffee Smoking status: Current every day smoker Tobacco type: cigars Additional smoking assessment comments: 4-5 cigars daily Alcohol intake: never Substance use: never Substance use type: does not use Lack of Transportation: YES Lack of Food: Never True Current Housing: I Have Housing Concerned About Future Housing: No Difficulty Paying Gas/Electric Bills: No Difficulty Paying for Meds: No Currently Unemployed: No Education: High School Diploma/GED Difficulty w/ Childcare or Family Care: No Gender identity (if verbalized by the patient): Male Agree to blood products: Yes Exam Narrative: GENERAL: Well-appearing, well-nourished, and in no acute distress. HEAD: Normocephalic, atraumatic. ENT: Mucous membranes moist. CHEST: Clear to auscultation. No respiratory distress. HEART: Regular rate and rhythm. Normal peripheral pulses. ABDOMEN: Soft, nontender, nondistended. EXTREMITIES: Normal range of motion. No edema. SKIN: Warm, dry, no rash. NEURO: Alert and oriented x3. PSYCH: Normal mood and affect. Course Course Emergency Course: CBC/CMP/troponin/lipase/viral panel negative. Chest x-ray normal as is EKG. Follow up with his diagnostic sales specialist Vital Signs Vital signs: Vital Signs Temperature 97.2 F L 06/29/24 12:21 Pulse Rate 70 06/29/24 12:21 Respiratory Rate 16 06/29/24 12:21 Blood Pressure 124/70 06/29/24 12:21 Pulse Oximetry 98 06/29/24 12:21 Oxygen Delivery Room Air 06/29/24 12:21 Temperature 97.2 F L 06/29/24 12:21 Pulse Rate 53 L 06/29/24 14:23 Respiratory Rate 17 06/29/24 14:23 Blood Pressure 117/72 06/29/24 14:23 Pulse Oximetry 96 06/29/24 14:23 Oxygen Delivery Room Air 06/29/24 13:27 MDM - Chest Pain Lab Data 06/29/24 13:52 06/29/24 13:52 Labs: Lab Results 06/29/24 Range/Units 13:52 WBC 6.0 (4.5-10.0) K/mm3 RBC 5.09 (4.6-6.20) M/mm3 Hgb 14.4 (14.0-18.0) g/dL Hct 43.9 (42.0-52.0) % MCV 86.2 (80-100) fl MCH 28.3 (26-34) pg MCHC 32.8 (32-36) g/dl RDW 13.2 (11.5-14.5) % Plt Count 192 (150-375) k/mm3 MPV 9.4 (7.4-10.4) fl Immature Gran % (Auto) 0.3 (0-0.5) % Neut % (Auto) 51.4 (45.5-73.1) % Lymph % (Auto) 36.8 (18.3-44.2) % [place] % (Auto) 8.0 (2.6-8.5) % Eos % (Auto) 3.0 (0-4.4) % Baso % (Auto) 0.5 (0.2-1.2) % Lymph # (Auto) 2.21 (0.9-3.2) K/mm3 [place] # (Auto) 0.5 (0.1-0.6) K/mm3 Eos # (Auto) 0.2 (0-0.3) K/mm3 Baso # (Auto) 0.0 (0.0-0.1) K/mm3 Abs Immat Gran (auto) 0.02 (0.00-0.031) K/mm3 Absolute Neuts (auto) 3.1 (1.3-6.7) K/mm3 Absolute Nucleated RBC 0.000 (0.0-0.012) K/mm3 Nucleated RBC % 0.0 (0.0-0.2) % PT 12.0 (11.1-14.7) Seconds INR 0.8 APTT 26.4 (22.3-36.8) Seconds Sodium 140 (137-145) mmol/L Potassium 3.9 (3.4-5.0) mmol/L Chloride 103 (98-107) mmol/L Carbon Dioxide 29 (22-30) mmol/L Anion Gap 8 (4-12) mmol/L BUN 12 (9-20) mg/dL Creatinine 1.00 (0.7-1.3) mg/dL Estim Creat Clear Calc 130 ml/min Estimated GFR > 60 (59 - ) Glucose 79 (65-110) mg/dL Calcium 8.9 (8.4-10.2) mg/dL Total Bilirubin 0.5 (0.2-1.3) mg/dL AST 29 (17-59) U/L ALT 39 (6-50) U/L Alkaline Phosphatase 59 (38-126) U/L Troponin I < 0.012 (0.000-0.034) ng/mL Total Protein 7.0 (6.3-8.2) g/dL Albumin 4.2 (3.5-5.1) g/dL Lipase 57 (23-300) U/L Influenza A (RT-PCR) Pending Influenza B (RT-PCR) Pending RSV (RT-PCR) Pending SARS-CoV-2 RNA (RT-PCR) Pending Imaging Data Radiologist's impression: ITS Impressions Chest X-Ray 06/29/24 12:50 IMPRESSION: 1: NO ACUTE CARDIOPULMONARY DISEASE. ECG Data EKG #1: ECG completion date: 06/29/24 ECG completion time: 12:17 EKG Interpretation: normal rate (70), sinus rhythm, no ectopy, no ST changes, normal QRS and normal QT Discharge Plan Discharge Clinical Impression: Atypical chest pain Patient Disposition: Home, Self-Care Condition: Stable Instructions: Chest Pain (ED) Additional Instructions: Please return to the emergency department if you develop severe and persistent chest pain, difficulty breathing, dizziness, leg swelling or if you are coughing up blood as these can be signs of a medical emergency. Please call your doctor for a follow up appointment to determine the need for further testing. You may follow-up with your diagnostic sales specialist or PCP. Prescriptions: No Action omeprazole 20 mg capsule,delayed release(DR/EC) 20 mg PO DAILY Qty: 30 5RF fluticasone propionate 50 mcg/actuation spray,suspension 1 spray intranasal DAILY Qty: 16 0RF Rx Instructions: administer into each nostril cetirizine [All Day Allergy (cetirizine)] 10 mg tablet 10 mg PO DAILY Qty: 30 0RF Follow-up/Referrals: Ray Payan MD [Primary Care Provider] - 1 Week Quality HEART score for chest pain patients History: slightly suspicious ECG: normal Age: < or = to 45 years Risk factors: no risk factors known Troponin: < or = to 1x normal limit Heart score: 0
[2024-06-29 14:34] LABS: Influenza A QL RT-PCR Negative (Negative); Influenza B QL RT-PCR Negative (Negative); RSV RNA, RT-PCR Negative (Negative); SARS-CoV-2 RNA PCR Negative (Negative)
[2024-06-29 15:04] VITALS: BP 112/75; PULSE 56; RESP 18; O2SAT 100
[2024-06-29 15:28] LABS: Troponin I < 0.012 ng/mL (0.000-0.034)
== END 2024-06-29 15:06 | disposition home or self-care (01) ==
PROVIDERS: Student in an Organized Health Care Education/Training Program; Emergency Provider Emergency Medicine; PCP Emergency Medicine
DX: R07.89 Other chest pain (principal); Z20.822 Contact with and (suspected) exposure to COVID-19; K21.9 Gastro-esophageal reflux disease without esophagitis; F17.290 Nicotine dependence, other tobacco product, uncomplicated
CPT/HCPCS: 36415; 71046; 80053; 83690; 84484; 85025; 85610; 85730; 87637; 93005; 99284; A9270

== ENCOUNTER 2024-08-11 17:17 | Emergency (ER) | payer OTHER, SELFPAY ==
[2024-08-11 17:27] VITALS: BP 129/77; PULSE 72; RESP 16; TEMP 36.8; O2SAT 97
--- NOTE | 2024-08-11 21:03 | PC.NURSE ---
Pt called to go to exam room and did not show up.
== END 2024-08-11 21:03 | disposition left against medical advice (07) ==
PROVIDERS: PCP Emergency Medicine
DX: R51.9 Headache, unspecified (principal)
CPT/HCPCS: 99199

== ENCOUNTER 2024-08-22 17:54 | Emergency (ER) | payer OTHER, SELFPAY ==
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
--- NOTE | 2024-08-22 18:02 | ECG_ITS ---
Test Date: 2024-08-22 18:09:29 Measurements Intervals [place] Rate: 72 P: 57 [place]: 156 QRS: 38 QRSD: 102 T: 29 QT: 371 QTc: 408 Interpretive Statements SINUS RHYTHM INCOMPLETE RIGHT BUNDLE BRANCH BLOCK [90+ ms QRS DURATION, TERMINAL R IN V1/V2, 40+ ms S IN I/aVL/V4/V5/V6] Compared to ECG 06/29/2024 12:17:23 Incomplete right bundle-branch block now present Electronically Signed On 08-23-2024 15:51:59 [employer] by Ryan Cannon M.D.
[2024-08-22 18:03] VITALS: BP 143/86; PULSE 78; RESP 16; TEMP 36.2; O2SAT 98
[2024-08-22 18:22] LABS: Basophils Percent Auto 0.5 % (0.2-1.2); Eosinophils Absolute Auto 0.3 K/mm3 (0-0.3); Eosinophils Percent Auto 4.9 % (0-4.4); Hematocrit 43.4 % (42.0-52.0); Hemoglobin 14.6 g/dL (14.0-18.0); Immature Granulocyte Absolute 0.01 K/mm3 (0.00-0.031); Immature Granulocyte Percent A 0.2 % (0-0.5); Lymphocytes Absolute Auto 3.01 K/mm3 (0.9-3.2); Mean Corpuscular HGB Conc 33.6 g/dl (32-36); Mean Corpuscular Hemoglobin 28.3 pg (26-34); Mean Corpuscular Volume 84.1 fl (80-100); Mean Platelet Volume 9.6 fl (7.4-10.4); Monocytes Absolute Auto 0.5 K/mm3 (0.1-0.6); Monocytes Percent Auto 6.9 % (2.6-8.5); Neutrophils Absolute Auto 2.7 K/mm3 (1.3-6.7); Neutrophils Percent Auto 41.5 % (45.5-73.1); Platelet Count Result 200 k/mm3 (150-375); Red Blood Count 5.16 M/mm3 (4.6-6.20); Red Cell Distribution Width 12.9 % (11.5-14.5); White Blood Count 6.6 K/mm3 (4.5-10.0)
[2024-08-22 18:30] VITALS: PULSE 83
[2024-08-22 18:33] LABS: Alanine Aminotransferase 29 U/L (6-50); Albumin Level 4.3 g/dL (3.5-5.1); Alkaline Phosphatase 63 U/L (38-126); Anion Gap 1 mmol/L (4-12); Aspartate Amino Transferase 32 U/L (17-59); Bilirubin,Total 0.6 mg/dL (0.2-1.3); Blood Urea Nitrogen 13 mg/dL (9-20); Calcium 9.3 mg/dL (8.4-10.2); Carbon Dioxide 32 mmol/L (22-30); Chloride 108 mmol/L (98-107); Estimated CRCL calculation 116 ml/min; Estimated Glomerular Filt Rate > 60; Glucose 93 mg/dL (65-110); Lipase 61 U/L (23-300); Potassium 4.2 mmol/L (3.4-5.0); Sodium 141 mmol/L (137-145)
[2024-08-22 18:44] LABS: Troponin I < 0.012 ng/mL (0.000-0.034)
[2024-08-22 18:51] LABS: INR 0.9; Prothrombin Time 12.2 Seconds (11.1-14.7)
[2024-08-22 18:52] LABS: Partial Thromboplastin Time 29.2 Seconds (22.3-36.8)
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
[2024-08-22 19:51] LABS: D Dimer 0.33 ug/mL (<0.48)
[2024-08-22 20:06] VITALS: BP 140/68; PULSE 65; RESP 16; O2SAT 96
[2024-08-22] MEDS: KETOROLAC 15 MG/ML VIAL (*BKC) IV PUSH (20:06)
[2024-08-22 20:35] LABS: Influenza A QL RT-PCR Negative (Negative); Influenza B QL RT-PCR Negative (Negative); RSV RNA, RT-PCR Negative (Negative); SARS-CoV-2 RNA PCR Negative (Negative)
--- NOTE | 2024-08-22 21:02 | ECG_ITS ---
Test Date: 2024-08-22 21:02:01 Measurements Intervals [place] Rate: 55 P: 51 MO: 157 QRS: 45 QRSD: 102 T: 30 QT: 424 QTc: 407 Interpretive Statements SINUS RHYTHM Electronically Signed On 08-23-2024 15:54:21 PAINTLESS DENT REPAIR TECHNICIAN by Ryan Cannon M.D.
[2024-08-22 21:48] LABS: Troponin I < 0.012 ng/mL (0.000-0.034)
[2024-08-22 22:12] VITALS: BP 114/69; PULSE 59; RESP 16; O2SAT 97
== END 2024-08-22 22:13 | disposition home or self-care (01) ==
PROVIDERS: Emergency Provider Emergency Medicine; PCP Emergency Medicine
DX: R07.81 Pleurodynia (principal); K21.9 Gastro-esophageal reflux disease without esophagitis; F17.290 Nicotine dependence, other tobacco product, uncomplicated; I45.10 Unspecified right bundle-branch block
CPT/HCPCS: 36415; 71046; 80053; 83690; 84484; 85025; 85380; 85610; 85730; 87637; 93005; 96374; 99284; J1885

== ENCOUNTER 2024-09-18 11:42 | Emergency (ER) | payer OTHER, SELFPAY ==
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
--- NOTE | 2024-09-18 11:43 | ECG_ITS ---
Test Date: 2024-09-18 11:49:52 Measurements Intervals [place] Rate: 91 P: 46 DC: 147 QRS: 26 QRSD: 90 T: 25 QT: 339 QTc: 419 Interpretive Statements SINUS RHYTHM Compared to ECG 08/22/2024 21:02:01 No significant changes Electronically Signed On 09-18-2024 15:28:51 DISH CARRIER by Tayler Milton M.D.
[2024-09-18 11:45] VITALS: BP 139/81; PULSE 94; RESP 20; TEMP 36.5; O2SAT 99
[2024-09-18 12:01] LABS: Basophils Absolute Auto 0.1 K/mm3 (0.0-0.1); Basophils Percent Auto 0.7 % (0.2-1.2); Eosinophils Absolute Auto 0.2 K/mm3 (0-0.3); Eosinophils Percent Auto 3.2 % (0-4.4); Hematocrit 46.3 % (42.0-52.0); Hemoglobin 15.5 g/dL (14.0-18.0); Immature Granulocyte Absolute 0.01 K/mm3 (0.00-0.031); Immature Granulocyte Percent A 0.1 % (0-0.5); Lymphocytes Absolute Auto 2.29 K/mm3 (0.9-3.2); Lymphocytes Percent Auto 33.6 % (18.3-44.2); Mean Corpuscular HGB Conc 33.5 g/dl (32-36); Mean Corpuscular Hemoglobin 28.4 pg (26-34); Mean Corpuscular Volume 84.8 fl (80-100); Mean Platelet Volume 9.6 fl (7.4-10.4); Monocytes Absolute Auto 0.4 K/mm3 (0.1-0.6); Neutrophils Absolute Auto 3.8 K/mm3 (1.3-6.7); Neutrophils Percent Auto 56.4 % (45.5-73.1); Platelet Count Result 225 k/mm3 (150-375); Red Blood Count 5.46 M/mm3 (4.6-6.20); White Blood Count 6.8 K/mm3 (4.5-10.0)
[2024-09-18 12:13] LABS: Alanine Aminotransferase 27 U/L (6-50); Albumin Level 4.4 g/dL (3.5-5.1); Alkaline Phosphatase 70 U/L (38-126); Anion Gap 7 mmol/L (4-12); Aspartate Amino Transferase 28 U/L (17-59); Bilirubin,Total 0.5 mg/dL (0.2-1.3); Blood Urea Nitrogen 11 mg/dL (9-20); Calcium 9.2 mg/dL (8.4-10.2); Carbon Dioxide 29 mmol/L (22-30); Chloride 106 mmol/L (98-107); Estimated CRCL calculation 136 ml/min; Estimated Glomerular Filt Rate > 60; Glucose 104 mg/dL (65-110); INR 0.9; Lipase 58 U/L (23-300); Partial Thromboplastin Time 27.7 Seconds (22.3-36.8); Potassium 4.2 mmol/L (3.4-5.0); Prothrombin Time 12.5 Seconds (11.1-14.7); Sodium 142 mmol/L (137-145)
[2024-09-18 12:24] LABS: Troponin I < 0.012 ng/mL (0.000-0.034)
[2024-09-18 13:48] VITALS: PULSE 78
--- NOTE | 2024-09-18 14:52 | ECG_ITS ---
Test Date: 2024-09-18 14:55:26 Measurements Intervals [place] Rate: 71 P: 32 [place]: 157 QRS: 22 QRSD: 84 T: 25 QT: 380 QTc: 413 Interpretive Statements SINUS RHYTHM Compared to ECG 09/18/2024 11:49:52 No significant changes Electronically Signed On 09-18-2024 15:37:40 AXLE TURNER by Tayler Milton M.D.
[2024-09-18 15:09] LABS: Troponin I < 0.012 ng/mL (0.000-0.034)
--- NOTE | 2024-09-18 15:09 | ED_ITS ---
HPI - Chest Pain General Chief Complaint: Chest Pain Stated Complaint: chest pain Time Seen by Provider: 09/18/24 14:03 Source: patient Mode of arrival: ambulatory Limitations: no limitations History of Present Illness HPI narrative: Patient had initially complained of chest pain/epigastric pain but then describes it as a shortness of breath. At triage he stated he felt like he was swallowing his heart. He tells me I think I'm having internal inflammatory problems. Here 2-3 weeks ago with the same. States he has been worked up previously without any clear indication of a diagnosis. Has seen cardiology, pulmonology, and gastroenterology. Says it's not a problem with his heart. Has had PFTs performed which were reportedly normal as well as EGD and colonoscopy, also normal by report. States he has not taken any medications at home for pain but then does state that he is on omeprazole because he had been told he had GERD. PCP Dr Orozco (Sajid?) and he states he gets routine blood work which has been ok. Pain on the right side of his chest which is worse if he lays on his right side. Subjective edema. Says the pain has been going on for the past week but worsening over the past 2 days. Describes paroxysmal nocturnal dyspnea, saying he wakes up short of breath and is concerned about his lungs. No orthopnea, no change from his usual 1 pillow to sleep on. Feels like he is suffocating , having a flare with my airways which sends me into a panic and I can't catch my breath. Short of breath and nauseated but no vomiting, fever, chills, diaphoresis. Denies a cough but states he will occasionally hack up phlegm. No relationship to food, appetite is ok, last oral intake this morning. This has happened before. Cardiac risk factors: No HTN. Previously told HLD and was on fish oil for 1-2 weeks but then was told on repeat labs it was ok. No DM. Former smoker, quit > 1 year ago. No prior PR/TIA/CVA. No family history. Related Data Allergies Allergy/AdvReac Type Severity Reaction Status Date / Time No Known Allergies Allergy Unknown Verified 09/18/24 11:48 [facility] Past Medical History Medical History GERD (gastroesophageal reflux disease) Tinnitus Globus sensation Surgical History Surgical History H/O hernia repair (~1995) Family History Family History Father Alcoholism Mother Heart disease Grandparent Hypertension Cerebrovascular accident Heart disease Social History Social History Social History: Caffeine- coffee Smoking status: Former smoker Tobacco type: cigars Smoking end date: 09/05/23 Additional smoking assessment comments: Previously stated 4-5 cigars daily Alcohol intake: never Substance use: never Substance use type: does not use Lack of Transportation: YES Lack of Food: Never True Current Housing: I Have Housing Concerned About Future Housing: No Difficulty Paying Gas/Electric Bills: No Difficulty Paying for Meds: No Currently Unemployed: No Education: High School Diploma/GED Difficulty w/ Childcare or Family Care: No Gender identity (if verbalized by the patient): Male Agree to blood products: Yes Exam 2 Narrative: GENERAL: Well-appearing, well-nourished, and in no acute distress. Resting comfortably on his phone. Laying on his left side. HEAD: Normocephalic, atraumatic. EYES: Non injected, non icteric ENT: Nares clear, no rhinorrhea or epistaxis. NECK: Supple. CHEST: Speaking in full sentences. No respiratory distress. No tenderness to palpation or right chest which is without crepitus/bony deformity. Non reproducible pain. HEART: Regular rate and rhythm. . ABDOMEN: Soft, nondistended. Non tender to palpation throughout quadrants x4 including epigastric area. Brewer negative. No rigidity/guarding. Not peritoneal. EXTREMITIES: Normal range of motion. No bilateral lower extremity edema. SKIN: Warm, dry, no rash. NEURO: No focal deficits. Alert and oriented x3. PSYCH: Normal mood and affect. Course Vital Signs Vital signs: Vital Signs Temperature 97.7 F 09/18/24 11:45 Pulse Rate 94 09/18/24 11:45 Respiratory Rate 20 09/18/24 11:45 Blood Pressure 139/81 09/18/24 11:45 Pulse Oximetry 99 09/18/24 11:45 Oxygen Delivery Room Air 09/18/24 11:45 Temperature 98.1 F 09/18/24 16:50 Pulse Rate 81 09/18/24 16:50 Respiratory Rate 18 09/18/24 16:50 Blood Pressure 100/60 09/18/24 16:50 Pulse Oximetry 98 09/18/24 16:50 Oxygen Delivery Room Air 09/18/24 15:35 MDM - Chest Pain MDM Narrative Medical decision making narrative: Patient presents with complaint of CP/epigastric pain, and shortness of breath. Describes it in various ways, that he feels like he is swallowing his heart and that he is concerned about internal inflammation. Has presented before for this and states has been seen by GI, cardiology, and pulmonology. In the emergency department they are afebrile with vital signs within normal limits. HEART SCORE History 2 highly suspicious 1 moderately suspicious 0 slightly suspicious History score [address] depression/elevation not due to LBBB, LVH, or digoxin [address] depression but LBBB, LVH, nonspecific repolarization changes 0 normal ECG score 0 Age 2 >/= 65 1 45-64 0 <45 Age score 0 Risk factors (HTN, hypercholesterolemia, DM, obesity with BMI >30, current smoker or cessation </=3mo), positive fam hx with parent or sibling with CVD before age 65, atherosclerotic disease (prior PR, PCI/CABG, CVA/TIA, or peripheral arterial disease) 2 >/= 3 risk factors or history of atherosclerotic dz 1 - 1-2 risk factors 0 no known risk factors Risk factor score 1 (possible HLD, obesity) Initial Troponin 2 >3 times normal limit 1 1-3 times normal limit 0 less than or equal to normal limit Troponin score 0 Total HEART Score 1; 2nd troponin negative. BNP and dimer negative. Patient's symptoms do sound like they could be related to his known history of GERD. Not confirmatory but no serious life threatening emergency has been identified. Encouraged follow up with his care team including specialists. Provided Rx for OTC anglesic medictations; otherwise stable for discharge. Differential Diagnosis Differential diagnosis: Likely stable angina, unstable angina pectoris, atypical chest pain, st elevation myocardial infarction, costochondritis, chest pain, biliary colic and other (pleurisy, psychogenic, GERD; PE; acute heart failure) Lab Data Attestation: I reviewed the patient's lab results. 09/18/24 11:52 09/18/24 11:52 Labs: Lab Results 09/18/24 09/18/24 Range/Units 11:52 14:42 WBC 6.8 (4.5-10.0) K/mm3 RBC 5.46 (4.6-6.20) M/mm3 Hgb 15.5 (14.0-18.0) g/dL Hct 46.3 (42.0-52.0) % MCV 84.8 (80-100) fl MCH 28.4 (26-34) pg MCHC 33.5 (32-36) g/dl RDW 13.0 (11.5-14.5) % Plt Count 225 (150-375) k/mm3 MPV 9.6 (7.4-10.4) fl Immature Gran % (Auto) 0.1 (0-0.5) % Neut % (Auto) 56.4 (45.5-73.1) % Lymph % (Auto) 33.6 (18.3-44.2) % [place] % (Auto) 6.0 (2.6-8.5) % Eos % (Auto) 3.2 (0-4.4) % Baso % (Auto) 0.7 (0.2-1.2) % Lymph # (Auto) 2.29 (0.9-3.2) K/mm3 [place] # (Auto) 0.4 (0.1-0.6) K/mm3 Eos # (Auto) 0.2 (0-0.3) K/mm3 Baso # (Auto) 0.1 (0.0-0.1) K/mm3 Abs Immat Gran (auto) 0.01 (0.00-0.031) K/mm3 Absolute Neuts (auto) 3.8 (1.3-6.7) K/mm3 Absolute Nucleated RBC 0.000 (0.0-0.012) K/mm3 Nucleated RBC % 0.0 (0.0-0.2) % PT 12.5 (11.1-14.7) Seconds INR 0.9 APTT 27.7 (22.3-36.8) Seconds D-Dimer 0.38 (<0.48) ug/mL Sodium 142 (137-145) mmol/L Potassium 4.2 (3.4-5.0) mmol/L Chloride 106 (98-107) mmol/L Carbon Dioxide 29 (22-30) mmol/L Anion Gap 7 (4-12) mmol/L BUN 11 (9-20) mg/dL Creatinine 0.92 (0.7-1.3) mg/dL Estim Creat Clear Calc 136 ml/min Estimated GFR > 60 (59 - ) Glucose 104 (65-110) mg/dL Calcium 9.2 (8.4-10.2) mg/dL Total Bilirubin 0.5 (0.2-1.3) mg/dL AST 28 (17-59) U/L ALT 27 (6-50) U/L Alkaline Phosphatase 70 (38-126) U/L Troponin I < 0.012 < 0.012 (0.000-0.034) ng/mL NT-Pro-B Natriuret Pep 22 (19.9-100) pg/mL Total Protein 7.0 (6.3-8.2) g/dL Albumin 4.4 (3.5-5.1) g/dL Lipase 58 (23-300) U/L Imaging Data Radiologist's impression: Impressions Chest X-Ray 09/18/24 12:31 IMPRESSION: No acute cardiopulmonary pathology. ECG Data EKG #1: Attestation: I personally reviewed and interpreted this ECG as follows: ECG completion date: 09/18/24 ECG completion time: 11:49 Interpretation: Normal sinus rhythm at a rate of 91 beats per minute. OK interval 147. QRS 90. QT/QTC 339/388. Good R-wave progression across the precordial leads. T-wave flattening in lead 3 but otherwise upright in normal in contiguous inferior leads 2 and AVF. No other T-wave inversions. EKG #2: Attestation: I personally reviewed and interpreted this ECG as follows: ECG completion date: 09/18/24 ECG completion time: 14:55 Interpretation: Normal sinus rhythm at a rate of 71 beats per minute. OK interval 157. QRS 84. QT/QTC 380/4 2. Good R-wave progression across the precordial leads. T-wave inversion in lead 3 but otherwise upright in normal in contiguous inferior leads 2 and AVF. No other T-wave inversions. Discharge Plan Discharge Clinical Impression: Right-sided chest pain, Difficulty breathing, PND (paroxysmal nocturnal dyspnea) Patient Disposition: Home, Self-Care Condition: Stable Instructions: Antibiotic Form, Chest Pain (ED), Dyspnea (ED), Shortness of Breath (ED) Additional Instructions: No emergent cause of your symptoms has been found. As we discussed, this might be related to your known GERD; continue to take all of your medications as prescribed. Acetaminophen/Tylenol (maximum 4000 mg per day) is safe to take with NSAIDs (non steroidal anti-inflammatories like Naproxyn/naprosen) for pain relief. Follow up with your primary care physician, fender repairer, restaurant operations manager, and estimator lumber. Patient Language: Romansh Prescriptions: New acetaminophen 500 mg capsule 1,000 mg PO Q6H PRN (Reason: pain) Qty: 30 0RF naproxen 500 mg tablet 500 mg PO BID PRN (Reason: pain) Qty: 30 0RF No Action omeprazole 20 mg capsule,delayed release(DR/EC) 20 mg PO DAILY Qty: 30 5RF fluticasone propionate 50 mcg/actuation spray,suspension 1 spray intranasal DAILY Qty: 16 0RF Rx Instructions: administer into each nostril cetirizine [All Day Allergy (cetirizine)] 10 mg tablet 10 mg PO DAILY Qty: 30 0RF Follow-up/Referrals: Ray Payan MD [Primary Care Provider] - Stand Alone Forms: Work/School Release IP Time of Disposition: 16:33
--- NOTE | 2024-09-18 15:30 | PC.NURSE ---
Lab notified of added lab order
[2024-09-18 15:35] VITALS: O2SAT 100
--- NOTE | 2024-09-18 15:37 | PC.NURSE ---
Pt resting on stretcher with arms resting behind his head. States I just feel inflammed. Look at me I'm struggling to breath Noted clear breath sounds Sa02 100% Resp reg & unlabored. Informed pt 100% Sa02 is excellent, no distress present.
[2024-09-18 15:50] LABS: D Dimer 0.38 ug/mL (<0.48)
[2024-09-18 16:13] LABS: NT Pro B Type Natriuretic Pept 22 pg/mL (19.9-100)
[2024-09-18] MEDS: ACETAMINOPHEN 500 MG TABLET 1000 MG PO (16:46)
[2024-09-18] MEDS: KETOROLAC 30 MG/ML VIAL (*BKC) 15 MG IM (16:46)
[2024-09-18 16:50] VITALS: BP 100/60; PULSE 81; RESP 18; TEMP 36.7; O2SAT 98
== END 2024-09-18 16:51 | disposition home or self-care (01) ==
PROVIDERS: Emergency Medicine; Emergency Provider Student in an Organized Health Care Education/Training Program; PCP Emergency Medicine
DX: R07.89 Other chest pain (principal); R06.00 Dyspnea, unspecified; K21.9 Gastro-esophageal reflux disease without esophagitis
CPT/HCPCS: 36415; 71046; 80053; 83690; 83880; 84484; 85025; 85380; 85610; 85730; 93005; 96372; 99284; A9270; J1885

== ENCOUNTER 2024-10-29 12:58 | Emergency (ER) | payer OTHER, SELFPAY ==
[2024-10-29 13:05] VITALS: BP 119/76; PULSE 73; RESP 18; TEMP 36.6; O2SAT 100
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
--- OUTSIDE RECORDS SUMMARY | 2024-10-29 14:41 | XMS_ITS | Referral Summary ---
Author Organization [facility] Address [address] [place] [address] Care Team Providers Care Life Science Teacher Name Role Phone Ray Payan MD Primary Care Provider [phone] Encounters Date Type Department Care Team Description 10/09/2024 3:00 PM [employer] Office Visit [facility] Pulmonology [address] [place] [address] [place] [phone] Gasper Still MD Dyspnea on exertion (Primary Dx); Chest pain, unspecified type 10/02/2024 Telephone [facility] Primary Care at [address] [address] Ethan Randolph MD from Last 3 Months Allergies No known active allergies Medications meclizine (ANTIVERT) 25 mg tablet Take 1 tablet (25 mg total) by mouth 3 (three) times a day as needed for dizziness 30 tablet 03/15/20 23 Active Additional Information Patient not taking.Reported on 10/09/2024 omeprazole (PriLOSEC) 20 mg capsule Take 1 capsule (20 mg total) by mouth daily 05/26/20 23 Active hydrOXYzine (ATARAX) 25 mg tablet Take 1 tablet (25 mg total) by mouth every 6 (six) hours 20 tablet 07/31/20 23 Active PARoxetine (PAXIL) 20 mg tablet Take 1 tablet (20 mg total) by mouth every morning 11/02/19 24 Active polyethylene glycol-electrolytes 420 gram solution TAKE DIRECTED BY OFFICE 10/13/19 24 Active albuterol HFA (PROVENTIL HFA,VENTOLIN HFA,PROAIR HFA) 90 mcg/actuation inhalerIndications:D yspnea on exertion,Chest pain, unspecified type Inhale 2 puffs every 6 (six) hours as needed for wheezing or shortness of breath OK TO SUBSTITUTE IF ALTERNATIVE CHEAPER 1 each 3 11/23/19 24 Active ergocalciferol (VITAMIN D) 50,000 unit capsule Take 1 capsule (50,000 Units total) by mouth once a week 05/20/20 24 Active fenofibrate nanocrystallized (TRICOR) 145 mg tablet 05/21/20 24 Active Active Problems Problem Noted Date Diagnosed Date Essential (primary) hypertension 09/30/2023 Generalized anxiety disorder 09/30/2023 Obstructive sleep apnea syndrome 07/01/2023 Snoring 03/24/2023 B12 deficiency 03/07/2020 Overview (08/06/2024): nml iron Vitamin D deficiency 03/07/2020 Gastroesophageal reflux disease 03/06/2020 Palpitations 03/06/2020 Open fracture of shaft of right humerus 07/11/20 18 Fracture of right humerus 06/26/2018 Social History Tobacco Use Types Packs/Day Years Used Date Smoking Tobacco: Former Cigars Tobacco Cessation:Counseling Given: Not Answered Comments:2-3 cigars, previously smoked cigarettes ( started teenage ) Alcohol Use Standard Drinks/Week Comments No 0 (1 standard drink = 0.6 oz pur e alcohol) Personal Safety Answer Date Recorded Have you ever been in or are you currently in a harmful physical or emotional relationship or is someone making you feel afraid or unsafe? Denies 07/31/2023 Sex and Gender Information Value Date Recorded Sex Assigned at Not on file Legal Sex Male 10:09 PM [employer] Gender Identity Not on file Sexual Orientation Not on file Last Filed Vital Signs Vital Sign Reading Time Taken Comments Blood Pressure 112/79 10/09/2024 3:00 PM [employer] Pulse 78 10/09/2024 3:00 PM [employer] Temperature 36.4 C (97.5 F) 10/09/2024 3:00 PM [employer] Respiratory Rate 18 10/09/2024 3:00 PM [employer] Oxygen Saturation 97% 10/09/2024 3:00 PM [employer] Inhaled Oxygen Concentration - - Weight 127 kg (280 lb) 10/09/2024 3:00 PM [employer] Height 182.9 cm (6' 0.01 ) 10/09/2024 3:00 PM CS T Body Mass Index 37.97 10/09/2024 3:00 PM [employer] Plan of Treatment Not on file Insurance Care Teams Life Science Teacher Relationship Specialty Start Date End Date Ray Payan MD [address] [place] [id number] PCP - General Emergency Medicine 09/29/23
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
--- OUTSIDE RECORDS SUMMARY | 2024-10-29 14:41 | XMS_ITS | CONTINUITY OF CARE DOCUMENT ---
Author Name jeison mchugh Address Unknown Organization [facility] Address [address] [address] [place] [address] Phone [phone] Care Team Providers Care Vibrating Screen Operator Name Role Phone Leann DUNHAM, Flavia Roldan Unavailable [phone] FUNMI CHAUHAN MD Unavailable [phone] FUNMI CHAUHAN MD Unavailable [phone] PROBLEMS Condition Status Date Provider Notes Vitamin D deficiency active Tre Fulton B12 deficiency active Tre Suarez MD nml iron Screening active Tre Suarez MD neg chol d FAMILY HISTORY OF HEART DISEASE active Tre Suarez MD mom, sister harleen quevedo Tobacco use, quit active Tre Suarez MD GERD active Tre Suarez MD Exposure to SARS-associated coronavirus;neg igg active Tre Suarez MD Palpitations;NML TSH active Tre Fulton Chest pain active Yadira Ventimiglia FABRICATION MANAGER Dizziness active Yadira Ventimiglia FABRICATION MANAGER Snoring active Yadira Ventimiglia FABRICATION MANAGER Cardiovascular Condition Screening active Danika Lewis MOLD INJECTOR Fatigue active Danika Lewis MOLD INJECTOR CHAPARRO active Flavia Noriega MD Anxiety disorder generalized active Flavai Noriega MD HTN essential active Flavia Noriega MD Cardiology examination active Flavia gallego MD Body mass index (BMI) 39.0-39.9, adult active Flavia Noriega MD ENCOUNTERS Date Type Provider Location Encounter Diag nosis - In-person encounter Office Visit Flavia Noriega MD [facility] Cardiology examinationBody mass index (BMI) 39.0-39.9, adult - In-person encounter Office Visit Flavia Noriega MD [facility] Anxiety disorder generalizedHTN essential - In-person encounter Office Visit Flavia Noriega MD [facility] CHAPARRO - In-person encounter Office Visit Flavia Noriega MD [facility] Cardiovascular Condition ScreeningFatigue - In-person encounter Office Visit Flavia Noriega MD [facility] - In-person encounter Office Visit Flavia Noriega MD [facility] Chest painDizzinessSnoring - In-person encounter Office Visit Tre Suarez MD [facility] FAMILY HISTORY OF HEART DISEASETobacco use, quitGERDExposure to SARS-associated coronavirus;neg iggPalpitations;NML TSH VITAL SIGNS Date Observation Value Provider Body Mass Index (Ratio) 39.13 kg/m2 Connor Noriega MD weight E&M 280.6 [lb_av] Yasemin Baez height E&M 71 [in_i] Yasemin Baez blood pressure, cuff size regular Ol joana Baez blood pressure, diastolic 78 mm[Hg] Ol ivbrien Baez blood pressure, systolic 122 mm[Hg] Richard via Baez oxygen saturation, oximetry 97 % Yaseimn Baez respiratory rate E&M 12 /min Yasemin Baez pulse rate 71 /min Yasemin Baez Body Mass Index (Ratio) 29.70 kg/m2 Connor Noriega MD blood pressure, diastolic 78 mm[Hg] Jennifer day Ariel blood pressure, systolic 115 mm[Hg] Sasha mansfield oxygen saturation, oximetry 97 % Deepa Ariel pulse rate 70 /min Deepa Ariel weight E&M 213 [lb_av] Deepa blood pressure, cuff size large An barb height E&M 71 [in_i] Deepa Ariel Body Mass Index (Ratio) 28.59 kg/m2 Connor Noriega MD blood pressure, diastolic 69 mm[Hg] Agustina blood pressure, systolic 115 mm[Hg] Natalia blood pressure, cuff size regular Ja rret blood pressure, diastolic 69 mm[Hg] Ja rret blood pressure, systolic 115 mm[Hg] [facility] pulse rate 84 /min [facility] oxygen saturation, oximetry 97 % [facility] respiratory rate E&M 12 /min [facility] weight E&M 205 [lb_av] John y height E&M 71 [in_i] [facility] y Body Mass Index (Ratio) 28.73 kg/m2 Connor Noriega MD blood pressure, resting No Ashl ey Titchenlisa MOLD INJECTOR blood pressure, diastolic 63 mm[Hg] Li [facility] blood pressure, systolic 104 mm[Hg] Natalia ogic blood pressure, cuff size regular Ja rret blood pressure, diastolic 63 mm[Hg] Ja rret blood pressure, systolic 104 mm[Hg] Ryan pulse rate 79 /min respiratory rate E&M 12 /min oxygen saturation, oximetry 98 % weight E&M 206 [lb_av] height E&M 71 [in_i] John Body Mass Index (Ratio) 28.03 kg/m2 Taye robin Vicente blood pressure, diastolic 86 mm[Hg] An barb George blood pressure, systolic 120 mm[Hg] Sasha George pulse rate 83 /min Deepa George oxygen saturation, oximetry 98 % Deepa George weight E&M 201 [lb_av] Deepa George height E&M 71 [in_i] Deepa George blood pressure, cuff size large An barb George Body Mass Index (Ratio) 27.47 kg/m2 Connor Noriega MD blood pressure, diastolic 73 mm[Hg] St cari Carrizales blood pressure, systolic 123 mm[Hg] Isaiah Carrizales oxygen saturation, oximetry 98 % Sarah Carrizales pulse rate 91 /min Sarah Carrizales weight E&M 197 [lb_av] Sarah Carrizales respiratory rate E&M 16 /min Sarah zhang height E&M 71 [in_i] Sarah Carrizales Body Mass Index (Ratio) 28.73 kg/m2 Rosario Suarez MD blood pressure, diastolic 67 mm[Hg] Reji Thompson blood pressure, systolic 115 mm[Hg] Cari Thompson respiratory rate E&M 16 /min Kacey Thompson blood pressure, cuff size regular Cy robin Thompson pulse rate 60 /min Kacey oconnor oxygen saturation, oximetry 97 % Kacey Thompson height E&M 71 [in_i] Kacey oconnor weight E&M 206 [lb_av] Kacey oconnor ALLERGIES No Known Drug Allergies RESULTS Date Observation Value Provider Reference Range Interpretation Location 3 ferritin, serum 133 ng/mL [facility] 30-400 3 B-12, serum 239 pg/mL [facility] 232-1245 3 lipase, serum 18 U/L [facility] 13-78 3 amylase, serum 58 1/L [facility] 31-110 3 pro brain natriuretic peptide 27 pg/mL [facility] 0-86 3 c-reactive protein, quantitative, serum 2.76 mg/L [facility] 0.00-3.00 3 hemoglobin A1C, blood, as % of total hemoglobin 5.1 % [facility] 4.8-5.6 3 iron saturation percent, serum 28 % [facility] 15-55 3 iron, serum 77 ug/dL [facility] 38-169 3 iron binding capacity, unsaturated 203 ug/dL [facility] 521-794 1010/07/0 3 iron binding capacity, total 280 ug/dL [facility] 602-925 3738/07/0 3 free thyroxine index 1.9 [facility] 1.2-4.9 3 triiodothyronine resin uptake 26 % [facility] 24-39 3 thyroxine, serum, total 7.2 ug/dL [facility] 4.5-12.0 3 thyroid stimulating hormone, serum 1.450 u[IU]/mL [facility] 0.450-4.500 3 lipoprotein, beta, serum, point, quantitative, calculated 106 mg/dL [facility] 0-99 High 3 very low density lipoproteins 10 mg/dL [facility] 5-40 3 HDL cholesterol, serum 49 mg/dL [facility] >39 3 triglyceride, serum, random 52 mg/dL [facility] 0-149 3 cholesterol, serum 165 mg/dL [facility] 942-508 5697/07/0 3 basophil count, absolute 0.0 x10E3/uL [facility] 0.0-0.2 3 Eosinophil Absolute Count 0.5 X10E3/UL [facility] 0.0-0.4 High 3 monocyte count, blood, automated 0.4 X10E3/UL [facility] 0.1-0.9 3 lymphocyte count, blood, automated 1.8 X10E3/UL [facility] 0.7-3.1 3 Absolute Neutrophils 2.9 X10E3/UL [facility] 1.4-7.0 3 basophils as percent of blood leukocytes 1 % [facility] Not Estab. 3 eosinophils as percent of blood leukocytes 9 % [facility] Not Estab. 3 monocytes as percent of blood leukocytes 6 % [facility] Not Estab. 3 lymphocytes as percent of blood leukocytes 32 % [facility] Not Estab. 3 neutrophils as percent of blood leukocytes 52 % [facility] Not Estab. 3 platelet count 163 X10E3/UL [facility] 982-564 6981/07/0 3 red blood cell distribution width 12.5 % [facility] 11.6-15.4 3 mean corpuscular hemoglobin concentration, RBC 33.6 G/DL [facility] 31.5-35.7 3 mean corpuscular hemoglobin, RBC 29.9 pg [facility] 26.6-33.0 3 mean corpuscular volume, RBC 89 fL [facility] 79-97 3 hematocrit, blood 44.3 % [facility] 37.5-51.0 3 hemoglobin, blood 14.9 g/dL [facility] 13.0-17.7 3 erythrocyte (RBC) count 4.98 X10E6/UL [facility] 4.14-5.80 3 leukocyte count, blood 5.6 X10E3/UL [facility] 3.4-10.8 3 alanine aminotransferase (SGPT), serum 34 1/L [facility] 0-44 3 aspartate aminotransferase (SGOT), serum 26 1/L [facility] 0-40 3 alkaline phosphatase, serum 50 1/L [facility] 39-117 3 bilirubin, serum, total 0.4 mg/dL [facility] 0.0-1.2 3 albumin/globulin ratio, serum 2.2 [facility] 1.2-2.2 3 globulin, serum 2.1 [facility] 1.5-4.5 3 albumin, serum 4.6 g/dL [facility] 4.1-5.2 3 protein, total, serum 6.7 g/dL [facility] 6.0-8.5 3 calcium, serum 9.7 mg/dL [facility] 8.7-10.2 3 carbon dioxide, venous blood 27 mmol/L [facility] 20-29 3 chloride, serum 104 mmol/L [facility] 96-106 3 potassium, serum 5.0 mmol/L [facility] 3.5-5.2 3 sodium, serum 143 mmol/L [facility] 987-455 6643/07/0 3 urea nitrogen/creatinine ratio, serum 11 [facility] 9-20 3 eGFR if 113 mL/min/{1 .73_m2} [facility] >59 3 eGFR if not 98 mL/min/{1 .73_m2} [facility] >59 3 creatinine, serum 1.04 mg/dL [facility] 0.76-1.27 3 urea nitrogen, blood 11 mg/dL [facility] 6-20 3 blood glucose, random 88 mg/dL [facility] 65-99 HISTORY OF MEDICATION USE Medication Status Instructions Dates Provider Indications Com ments VITAMIN D3 125 MCG (5000 UT) ORAL CAPSULE active ONE TAB BY MOUTH DAILY Tre Suarez MD VITAMIN B-12 1000 MCG ORAL TABLET active One tablet daily Tre Suarez MD PROTONIX 40 MG ORAL TABLET DELAYED RELEASE active ONE TAB. DAILY Tre Suarez MD SOCIAL HISTORY Date Observation Value Provider drug use no Deepa Ariel alcohol use no Deepa Ariel smoking, year quit 2022 Deepa Will iams smoking history, tot al pack/day 1/2 PPD Deepadonal George cigarette use yes Deepa Ariel smoking status Former smoker Deepa garay number of grandchildren Flavia Noriega MD smoking/tobacco cess ation, patient education and counseling yes Flavia Noriega MD social history reviewed E&M revi ewed - no changes required Flavia Noriega MD social history E&M Patient is a former smoker. Smoking History: Becky lópez currently smokes every day. Danika Lewis NP smoking status Former smoker Jacquie Bianca brown social history E&M S moking History: Becky lópez is a former smoker. Yadirajanay Cross [facility] social history reviewed E&M revi ewed - no changes required Yadira Ventimiglia [facility] drug use no Yadira Ventimig stephan [facility] alcohol use no Yadira Ventimig stephan [facility] smoking, year quit 2022 Deepa Will iaar smoking history, tot al pack/day 1/2 PPD Deepadonal George cigarette use yes Deepa Ariel smoking status Former smoker Deepa garay drug use no Yadira Ventimig stephan [facility] alcohol use no Yadira Ventimig stephan [facility] smoking history, tot al pack/day 1/2 PPD Sarah Carrizales cigarette use yes Sarah Carrizales smoking status Current every da y smoker Yadirajanay Hadleymijimenez [facility] quit smoking, stage quit Tre rao MD social history E&M S moking History: Becky lópez is a former smoker. Tre Suarez MD social history reviewed E&M revi ewed - no changes required Tre Suarez MD smoking history, tot al pack/day 1/2 PPD Kacey Thompson cigarette use yes Kacey Hodge jean claude smoking status Former smoker Kacey gómez FAMILY HISTORY Family Member Condition Mother Family History of Co ronary Artery Disease: INSURANCE PROVIDERS Payer name Policy type / Coverage type [place] [employer] party ID [employer] MEDICAID (2) Medicaid [id number] ADVANCE DIRECTIVES Name Date DISCUSSED - NO DECISION MADE TREATMENT PLAN Date Name Performer [id number],C, w ith no arrhythmia on ekg today. Will check labs, echo and tele monitor Flavia Noriega MD [id number],C, n uclaer stress test Findings: /05/13/23 R otating planar images show no significant attenuation artifact. T he left ventricular size is within normal limits. S tress tomographic images demonstrate normal perfusion. R esting tomographic images demonstrate a similar pattern. G ated portion of the study shows normal wall motion and myocardial thickening. T he left ventricular ejection fraction is 55%. (normal greater than 50%) Impression: N ormal left ventricular size, wall motion, and function, without evidence of i nfarction or of myocardium at ischemic risk. T he left ventricular ejection fraction is 55%. Flavia Noriega MD [id number],C,1 ppd or less T he Patient was reencouraged to stop smoking. Flavia Noriega MD [id number],C, Flavia Noriega MD [id number],C,t ry autopap Home sleep study shows an AHI of 8.1 which is consistent with a diagnosis of mild CHAPARRO. Mean oxygen saturation of 9 5%, with the lowest being 87%. Flavia Noriega MD [id number],C, h ad stress test done and had no ischemia h e did treadmill stress and did 13 mets and had 84% MPHR wiht control of bp and no st changes noted with a normal stress but had 84% MPHR so he had nuclear stress done [facility] was R otating planar images show no significant attenuation artifact. T he left ventricular size is within normal limits. S tress tomographic images demonstrate normal perfusion. R esting tomographic images demonstrate a similar pattern. G ated portion of the study shows normal wall motion and myocardial thickening. T he left ventricular ejection fraction is 55%. (normal greater than 50%) I mpression: N ormal left ventricular size, wall motion, and function, without evidence of i nfarction or of myocardium at ischemic risk. T he left ventricular ejection fraction is 55%. Flavia Noriega MD [id number],C,h ad stress test done and had no ischemia h e did treadmill stress and did 13 mets and had 84% MPHR wiht control of bp and no st changes noted with a normal stress but had 84% MPHR so he had nuclear stress done [facility] was R otating planar images show no significant attenuation artifact. T he left ventricular size is within normal limits. S tress tomographic images demonstrate normal perfusion. R esting tomographic images demonstrate a similar pattern. G ated portion of the study shows normal wall motion and myocardial thickening. T he left ventricular ejection fraction is 55%. (normal greater than 50%) I mpression: N ormal left ventricular size, wall motion, and function, without evidence of i nfarction or of myocardium at ischemic risk. T he left ventricular ejection fraction is 55%. Danika Lewis NP [id number],S,s brynn has dizziness w ill need to see neurologuist at [facility] or [facility] Danika Lewis NP [id number],S,a rrange for home sleep study - C ONCLUSIONS: 1 . Normal left ventricular systolic function. Normal left ventricular size. Normal left ventricular wall thickness. Normal left v entricular diastolic function. Left ventricular ejection fraction is measured at 65 %. 2 . Normal right ventricular size. Normal right ventricular systolic function. 3 . There is trace physiologic mitral valve regurgitation. 4 . There is trace physiologic tricuspid valve regurgitation. 5 . There is mild pulmonic regurgitation. Danika Lewis MOLD INJECTOR [id number],C,n uclaer stress test Findings: 05/13/23 R otating planar images show no significant attenuation artifact. T he left ventricular size is within normal limits. S tress tomographic images demonstrate normal perfusion. R esting tomographic images demonstrate a similar pattern. G ated portion of the study shows normal wall motion and myocardial thickening. T he left ventricular ejection fraction is 55%. (normal greater than 50%) Impression: N ormal left ventricular size, wall motion, and function, without evidence of i nfarction or of myocardium at ischemic risk. T he left ventricular ejection fraction is 55%. Danika Lewis MOLD INJECTOR [id number],C,r eports snoring at night with episodes of apnea. Will plan for home sleep study Yadira Ventimiglia [facility] [id number],C,r esumed use. Cessation encouraged [place] Ventimiglia [facility] [id number],C,w ith no arrhythmia on ekg today. Will check labs, echo and tele monitor Yadira Cross [facility] [id number],C,W ith feeling near syncopal. EKG shows NSR no acute changes. He had echo in 2019 with nml LV and mild [place]. Would recommend follow up to r/o any valvular abnormalities of LV dysfunction. Would also plan tele to r/o arrhythmia. O rders: 9 9215 HIGH 40-54min (CPT-68514) C omplete Echo (CPT-60781) S tress Routine (CPT-00877) M onitor - Telemetry (Mobile Cardiac) (CPT-81929) S leep Study Home (CPT-03092) C arotid Duplex Bilateral (CPT-46074) T SH, free T4, total T3 (5007) Yadira Hadleymiglia [facility] [id number],C,C omes and goes occuring near daily. Pain is sharp in nature. Somewhat atypical, but given his SOB, palpitations and near syncope would recommend treadmill stress O rders: 9 9215 HIGH 40-54min (CPT-76321) C omplete Echo (CPT-00846) S tress Routine (CPT-35934) M onitor - Telemetry (Mobile Cardiac) (CPT-50949) S leep Study Home (CPT-39486) C arotid Duplex Bilateral (CPT-23743) T SH, free T4, total T3 (7771) Yadira Cross FABRICATION MANAGER Cardiology: w ith no arrhythmia on ekg today. h e had tele monitor inthe past Flavia Noriega MD Cardiology:needs cpa p l egs are weak and gets lightheaded f eels fatigued after statnding for a fewmintues in a grocery store a lready on vit d supplement Flavia Noriega MD Cardiology:still has not gotten cpap t ry autopap Home sleep study shows an AHI of 8.1 which is consistent with a diagnosis of mild [place]APARRO. Mean oxygen saturation of 9 5%, with the lowest being 87%. Flavia Noriega MD Cardiology: w as started on paxil for anxiety disorder W as in ER BP was 140/100. s topped taking anxiety medrx Flavia Noriega MD Cardiology:This visi t has been a part of the consistent, comprehensive, and ongoing management of the chronic medical condition(s) listed above for the patient. BP today: 122/78 P rior BP: 115/78 (09/30/2023) Labs Reviewed: C reat: 1.04 (03/07/2020) C hol: 165 (03/07/2020) HDL: 49 (03/07/2020) LDL: 106 (03/07/2020) T (03/07/2020) Flavia Noriega MD Cardiology:Patient h as history of recurringCP , worsening symptoms of chest pain or shortness of breath, BMI>35, and is unable to exercise on treadmill to get 85%mphr cant go long enough to achieve target heartrate. I am ordering a Stress PET-CT to further evaluate. Flavia Noriega MD Cardiology: h ad stress test done and had no ischemia h e did treadmill stress and did 13 mets and had 84% MPHR wiht control of bp and no st changes noted with a normal stress but had 84% MPHR so he had nuclear stress done [facility] was R otating planar images show no significant attenuation artifact. T he left ventricular size is within normal limits. S tress tomographic images demonstrate normal perfusion. R esting tomographic images demonstrate a similar pattern. G ated portion of the study shows normal wall motion and myocardial thickening. T he left ventricular ejection fraction is 55%. (normal greater than 50%) I mpression: N ormal left ventricular size, wall motion, and function, without evidence of i nfarction or of myocardium at ischemic risk. T he left ventricular ejection fraction is 55%. Flavia Noriega MD Cardiology:BP is ove rall well controlled, however he had high BP when he came to the hospital Flavia Noriega MD Cardiology: h ad stress test done and had no ischemia h e did treadmill stress and did 13 mets and had 84% MPHR wiht control of bp and no st changes noted with a normal stress but had 84% MPHR so he had nuclear stress done [facility] was R otating planar images show no significant attenuation artifact. T he left ventricular size is within normal limits. S tress tomographic images demonstrate normal perfusion. R esting tomographic images demonstrate a similar pattern. G ated portion of the study shows normal wall motion and myocardial thickening. T he left ventricular ejection fraction is 55%. (normal greater than 50%) I mpression: N ormal left ventricular size, wall motion, and function, without evidence of i nfarction or of myocardium at ischemic risk. T he left ventricular ejection fraction is 55%. Flavia Noriega MD Cardiology:was start ed on paxil for anxiety disorder W as in ER BP was 140/100. Flavia Noriega MD Cardiology: a rrange for home sleep study - C ONCLUSIONS: 1 . Normal left ventricular systolic function. Normal left ventricular size. Normal left ventricular wall thickness. Normal left v entricular diastolic function. Left ventricular ejection fraction is measured at 65 %. 2 . Normal right ventricular size. Normal right ventricular systolic function. 3 . There is trace physiologic mitral valve regurgitation. 4 . There is trace physiologic tricuspid valve regurgitation. 5 . There is mild pulmonic regurgitation. Flavia Noriega MD Cardiology: tanisha swain has dizziness w ill need to see neurologuist at [facility] or [facility] Flavia Noriega MD Cardiology: t ry autopap Home sleep study shows an AHI of 8.1 which is consistent with a diagnosis of mild [place]ARRO. Mean oxygen saturation of 9 5%, with the lowest being 87%. Flavia Noriega MD Cardiology: n uclaer stress test Findings: 05/13/23 R otating planar images show no significant attenuation artifact. T he left ventricular size is within normal limits. S tress tomographic images demonstrate normal perfusion. R esting tomographic images demonstrate a similar pattern. G ated portion of the study shows normal wall motion and myocardial thickening. T he left ventricular ejection fraction is 55%. (normal greater than 50%) Impression: N ormal left ventricular size, wall motion, and function, without evidence of i nfarction or of myocardium at ischemic risk. T he left ventricular ejection fraction is 55%. Flavia Noriega MD Cardiology: w ith no arrhythmia on ekg today. Will check labs, echo and tele monitor Flavia Noriega MD Cardiology: n uclaer stress test Findings: 05/13/23 R otating planar images show no significant attenuation artifact. T he left ventricular size is within normal limits. S tress tomographic images demonstrate normal perfusion. R esting tomographic images demonstrate a similar pattern. G ated portion of the study shows normal wall motion and myocardial thickening. T he left ventricular ejection fraction is 55%. (normal greater than 50%) Impression: N ormal left ventricular size, wall motion, and function, without evidence of i nfarction or of myocardium at ischemic risk. T he left ventricular ejection fraction is 55%. Flavia Noriega MD Cardiology:1ppd or l ess T he Patient was reencouraged to stop smoking. Flavia Noriega MD Cardiology Flavia Noriega MD Cardiology:try autop ap Home sleep study shows an AHI of 8.1 which is consistent with a diagnosis of mild [place]O. Mean oxygen saturation of 9 5%, with the lowest being 87%. Flavia Noriega MD Cardiology: h ad stress test done and had no ischemia h e did treadmill stress and did 13 mets and had 84% MPHR wiht control of bp and no st changes noted with a normal stress but had 84% MPHR so he had nuclear stress done [facility] was R otating planar images show no significant attenuation artifact. T he left ventricular size is within normal limits. S tress tomographic images demonstrate normal perfusion. R esting tomographic images demonstrate a similar pattern. G ated portion of the study shows normal wall motion and myocardial thickening. T he left ventricular ejection fraction is 55%. (normal greater than 50%) I mpression: N ormal left ventricular size, wall motion, and function, without evidence of i nfarction or of myocardium at ischemic risk. T he left ventricular ejection fraction is 55%. Flavia Noriega MD Cardiology:had stres s test done and had no ischemia h e did treadmill stress and did 13 mets and had 84% MPHR wiht control of bp and no st changes noted with a normal stress but had 84% MPHR so he had nuclear stress done [facility] was R otating planar images show no significant attenuation artifact. T he left ventricular size is within normal limits. S tress tomographic images demonstrate normal perfusion. R esting tomographic images demonstrate a similar pattern. G ated portion of the study shows normal wall motion and myocardial thickening. T he left ventricular ejection fraction is 55%. (normal greater than 50%) I mpression: N ormal left ventricular size, wall motion, and function, without evidence of i nfarction or of myocardium at ischemic risk. T he left ventricular ejection fraction is 55%. Danika Lewis NP Cardiology:still has dizziness w ill need to see neurologuist at [facility] or [facility] Danika Lewis NP Cardiology:arrange f or home sleep study - C ONCLUSIONS: 1 . Normal left ventricular systolic function. Normal left ventricular size. Normal left ventricular wall thickness. Normal left ventricular diastolic function. Left ventricular ejection fraction is measured at 65 %. 2 . Normal right ventricular size. Normal right ventricular systolic function. 3 . There is trace physiologic mitral valve regurgitation. 4 . There is trace physiologic tricuspid valve regurgitation. 5 . There is mild pulmonic regurgitation. Danika Lewis NP Cardiology:nuclaer s tress test Findings: 05/13/23 R otating planar images show no significant attenuation artifact. T he left ventricular size is within normal limits. S tress tomographic images demonstrate normal perfusion. R esting tomographic images demonstrate a similar pattern. G ated portion of the study shows normal wall motion and myocardial thickening. T he left ventricular ejection fraction is 55%. (normal greater than 50%) Impression: N ormal left ventricular size, wall motion, and function, without evidence of i nfarction or of myocardium at ischemic risk. T he left ventricular ejection fraction is 55%. Danika Lewis NP Cardiology:reports s noring at night with episodes of apnea. Will plan for home sleep study Yadira Ventimiglia [facility] Cardiology:resumed use. Cessatio n encouraged Yadira Ventimiglia [facility] Cardiology:with no a rrhythmia on ekg today. Will check labs, echo and tele monitor Yadira Ventimiglia [facility] Cardiology:With feel ing near syncopal. EKG shows NSR no acute changes. He had echo in 2019 with nml LV and mild [place]. Would recommend follow up to r/o any valvular abnormalities of LV dysfunction. Would also plan tele to r/o arrhythmia. O rders: 9 15 HIGH 40-54min (CPT-98339) C omplete Echo (CPT-95549) S tress Routine (CPT-97948) M onitor - Telemetry (Mobile Cardiac) (CPT-06665) Sleep Study Home (CPT-24084) C arotid Duplex Bilateral (CPT-51988) T SH, free T4, total T3 (2742) Yadira Ventimiglia [facility] Cardiology:Comes and goes occuring near daily. Pain is sharp in nature. Somewhat atypical, but given his SOB, palpitations and near syncope would recommend treadmill stress O rders: 9 15 HIGH 40-54min (CPT-66100) C omplete Echo (CPT-72860) S tress Routine (CPT-02508) M onitor - Telemetry (Mobile Cardiac) (CPT-49407) S lee Study Home (CPT-15680) C arotid Duplex Bilateral (CPT-74815) T SH, free T4, total T3 (7444) Yadira Ventimiglia [employer] :nml a1c and pro and lipse and amypse and crp and abd us Tre Suarez MD Tre Suarze MD :nml lipase and amlyadse Tre Suarez MD :nml a1c adn pro, lipase and erik slase and crp Tre Suarez MD Cardiology New Patient Tre harrell MD Cardiology New Patient Tre harrell MD Cardiology New Patient Tre harrell MD Cardiology New Patient Tre harrell MD Cardiology New Patient Tre harrell MD Cardiology New Patient Tre harrell MD Date Name Stress Exercise Card iolite Auto-CPAP 6cm H2O -1 8cm H2O Monitor - Telemetry (Mobile Cardiac) myocardial blood babar w (PET) Stress Cardiac PET-C T Auto-CPAP 6cm H2O -1 8cm H2O EKG Sleep Study Titratio n Sleep Study Home EKG TSH, free T4, total T3 Carotid Duplex Bilat eral Sleep Study Home Monitor - Telemetry (Mobile Cardiac) Stress Routine Complete Echo Holter Monitor [address] Abdomen without c ontrast PROBNP, N TERMINAL CXR- PA/Lat VITAMIN B12 Vitamin D, 25-Hydrox y AMYLASE LIPASE Covid Antibody Igg HEMOGLOBIN A1c IRON AND TOTAL IRON BINDING CAPACITY FERRITIN CBC (INCLUDES DIFF/P LT) COMPREHENSIVE METABO LIC PANEL, W/EGFR TSH, free T4, total T3 C-REACTIVE PROTEIN LIPID PANEL Abdominal US Complete Echo HISTORY OF PROCEDURES Procedure Date Procedure Name Provider Procedure Notes S tatus Complex e/m visit ad d on Flavia Noriega MD [06/18/2024 - alexandru] APPROVED [ 06/11/2024 - alexandru] PENDING completed EKG Flavia Noriega MD completed Tobacco user + tobac co cessation intervention Flavia Noriega MD completed EKG Flavia Noriega MD completed EKG Flavia Noriega MD completed EKG Flavia Noriega MD completed Ultrasound, abdomen, complete Tre Suarez MD completed EKG Tre Suarez MD complete d
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
--- OUTSIDE RECORDS SUMMARY | 2024-10-29 14:41 | XMS_ITS | Clinical Summary ---
Author Organization [facility] Address [address] [place] [id number] Care Team Providers Care Rim Fire Charger Operator Name Role Phone Kacey Quigley MD Primary Care Provider [phone] Allergies No known active allergies Medications amoxicillin-clav ulanate (AUGMENTIN) 875-125 mg tabletIndication s:Acute otitis media, unspecified otitis media type Take 1 Tablet by mouth every 12 hours. 20 Tablet 3 Active fluticasone propionate (FLONASE) 50 mcg/spray [place], Suspension nasal inhalerIndicatio ns:Acute otitis media, unspecified otitis media type Administer 2 Sprays in each nostril daily. 16 Gram 3 Active Active Problems No known active problems Encounters Date Type Department Care Team Description 09/26/2024 External Device Data STL ABSTRACTION Provider, Abstract from Last 3 Months Family History Medical History Relation Name Comments No Known Problems Father Bone Cancer Maternal Grandfather Hypertension Maternal Grandfather Lung Cancer Maternal Grandfather No Known Problems Mother Relation Name Status Comments Father Maternal Grandfather Mother Paternal Grandfather Social History Tobacco Use Types Packs/Day Years Used Date Smoking Tobacco: Every Day Cigars Smokeless Tobacco: Never Tobacco Cessation:Ready to Q uit: Yes; Counseling Given: Yes Alcohol Use Standard Drinks/Week Comments Not Currently 0 (1 standard drink = 0.6 oz pur e alcohol) Sex and Gender Information Value Date Recorded Sex Assigned at Not on file Legal Sex Male 2:14 PM CDT Gender Identity Not on file Sexual Orientation Not on file Last Filed Vital Signs Vital Sign Reading Time Taken Comments Blood Pressure 110/80 12/29/2022 10:40 AM CDT Pulse 60 12/29/2022 10:40 AM CDT Temperature 36 C (96.8 F) 12/29/2022 10:40 AM CDT Respiratory Rate 18 12/29/2022 10:40 AM CDT Oxygen Saturation 98% 12/29/2022 10:40 AM CDT Inhaled Oxygen Concentration - - Weight 92.1 kg (203 lb) 12/29/2022 10:40 AM CDT Height 182.9 cm (6') 12/29/2022 10:40 AM CDT Body Mass Index 27.53 12/29/2022 10:40 AM CDT Plan of Treatment Health Maintenance Due Date Last Done Comments HEPATITIS B VACCINES (1 of 3 - 19+ 3-dose series) 2011 INFLUENZA VACCINE (#1) 2024 DTAP/TDAP/TD VACCINES (2 - T d or Tdap) 06/25/2028 06/25/2018 HPV VACCINES Aged Out No longer eligi ble based on patient's age to complete this topic Insurance OPEN ACCESS Care Teams Rim Fire Charger Operator Relationship Specialty Start Date End Date Kacey Quigley MD [address] [place] [address] PCP - General Family Practice 12/29/22
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
--- OUTSIDE RECORDS SUMMARY | 2024-10-29 14:42 | XMS_ITS | Clinical Summary ---
Author Organization [facility] Address [address] [place] [address] Care Team Providers Care Barrer And Tacker Name Role Phone Ray Payan MD Primary Care Provider [phone] Source Comments [facility],non-owned Affiliates and Associated Physician Practices is amultiple site organization consisting of ambulatory clinics and hospital sitesin [place], [place], [place] and [place]. This disclosure is being madepursuant to the Care Everywhere program and may not contain all information available regarding this patient. Last updated 18.[employer] Allergies No known active allergies Medications * Be aware that medications may not be up to date on this document. Alwaysverify current medications with the patient. Medication Sig Dispensed Refills Start Date End Date Status acetaminophen-code ine (TYLENOL #3) 300-30 MG tabletIndications: Open fracture of shaft of right humerus with routine healing, unspecified fracture morphology, subsequent encounter Take 1 tablet by mouth every 6 hours as needed for Pain Do not exceed 3 grams of acetaminophen (TYLENOL) daily. 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 [employer] Pulse 76 07/15/2023 10:55 AM [employer] Temperature 36.5 C (97.7 F) 07/15/2023 10:55 AM [employer] Respiratory Rate 19 07/15/2023 10:55 AM [employer] Oxygen Saturation 100% 07/15/2023 10:55 AM [employer] Inhaled Oxygen Concentration - - Weight 126.1 kg (278 lb) 06/22/2024 10:17 AM CDT Height 182.9 cm (6') 06/22/2024 10:17 AM CDT Body Mass Index 37.7 06/22/2024 10:17 AM CDT Plan of Treatment Upcoming Encounters Date Type Department Care Team (Late st Contact Info) Description 11/09/2024 9:00 AM [employer] Office Visit [facility] - ENT [address] [place] [phone] 12/03/2024 9:00 AM CDT Office Visit [facility] - Neurology [address] [place] [phone] Deana Milton, SEWER BUILDER-[facility] [address] [place] [address] [place] [address] Health Maintenance Due Date Last Done Comments HIV SCREENING 2007 HEPATITIS C SCREENING 08/03/2010 HEPATITIS B VACCINE (1 of 3 - 19+ 3-dose series) 2011 COVID-19 VACCINE (1 - 2023-2 5 season) 2024 INFLUENZA VACCINE (#1) 2024 DEPRESSION SCREENING 09/05/2024 DTAP/TDAP/TD VACCINES (2 - T d or Tdap) 06/25/2028 06/25/2018 ZOSTER VACCINE (1 of 2) 2042 HIB VACCINE Aged Out No longer eligi ble based on patient's age to complete this topic HPV VACCINE Aged Out No longer eligi ble based on patient's age to complete this topic MENINGOCOCCAL (Group B) VACCINE Aged Out No longer eligible based on patient's age to complete this topic MENINGOCOCCAL VACCINE Aged Out No valeria yenny eligible based on patient's age to complete this topic PNEUMOCOCCAL VACCINE Aged Out No long er eligible based on patient's age to complete this topic Care Teams Barrer And Tacker Relationship Specialty Start Date End Date Ray Payan MD [address] [place] [id number] PCP - General Family Medicine 10/19/24
--- OUTSIDE RECORDS SUMMARY | 2024-10-29 14:42 | XMS_ITS | Referral Summary ---
Author Organization [facility] Address [address] [place] [address] Care Team Providers Care Machine Assistant Name Role Phone Ray Payan MD Primary Care Provider [phone] Source Comments [facility] [employer],non-owned Affiliates and Associated Physician Practices is amultiple site organization consisting of ambulatory clinics and hospital sitesin [place], [place], [place] and [place]. This disclosure is being madepursuant to the Care Everywhere program and may not contain all information available regarding this patient. 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 Pulse 76 07/15/2023 10:55 AM SOCIAL SERVICES SPECIALIST Temperature 36.5 C (97.7 F) 07/15/2023 10:55 AM SOCIAL SERVICES SPECIALIST Respiratory Rate 19 07/15/2023 10:55 AM SOCIAL SERVICES SPECIALIST Oxygen Saturation 100% 07/15/2023 10:55 AM SOCIAL SERVICES SPECIALIST Inhaled Oxygen Concentration - - Weight 126.1 kg (278 lb) 06/22/2024 10:17 AM CDT Height 182.9 cm (6') 06/22/2024 10:17 AM CDT Body Mass Index 37.7 06/22/2024 10:17 AM CDT Plan of Treatment Upcoming Encounters Date Type Department Care Team (Late st Contact Info) Description 11/09/2024 9:00 AM SOCIAL SERVICES SPECIALIST Office Visit [facility] - ENT [address] [place] [phone] 12/03/2024 9:00 AM CDT Office Visit [facility] - Neurology [address] [place] [phone] Deana Milton, BLENDING TECHNICIAN-SUPERVISOR UNLOADING [address] [place] [address] [place] [address] Care Teams Machine Assistant Relationship Specialty Start Date End Date Ray Payan MD [address] [place] [address] [address] [place] [address] PCP - General Family Medicine 10/19/24
--- OUTSIDE RECORDS SUMMARY | 2024-10-29 14:42 | XMS_ITS ---
Author Organization [facility] Address [address] [place] [address] Care Team Providers Care Chemical Dependency Therapist Name Role Phone Yony Thompson Primary Care Provider Yojana Verma [phone] REASON FOR VISIT Needs call back from office Medications Medication SIG (Take, Route, Fr equency, Duration) Notes Start Date End Date Status Zoloft 50 MG 1 tablet Orally Once a day for 30 days 06/22/2023 Active Omeprazole 20 MG 1 capsule 30 minutes before morning meal Orally Once a day Active Encounters Encounter Location Date Provider Diagnosis [address] [phone] 06/21/2023 Yojana Verma DARIEL (generalized anxiety disorder) F41.1 Assessments Encounter Date Diagnosis (ICD Code) Assessment Notes Treatment Notes Treatment Clinical Notes Section Notes 06/21/2023 DARIEL (generalized anxiety disorder) (ICD-10 - F41.1) Plan Of Treatment Medication Medication Name Sig Start Date Stop Date Notes Zoloft 50 MG 1 tablet Orally Once a day for 30 days 06/22/2023 FLUoxetine HCl 20 MG 1 capsule Orally Once a day Progress Notes * Etienne BEAULIEUOB:1990 (32 yo M)Acc No.[id number]:06/21/2023 Patient: Nitin Jasmine :1990 A ge:32 Y S ex:Male Address:[address] [place] [address] * Refills Start Zoloft Tablet, 50 MG, Orally, 30, 1 tablet, Once a day, 30 days, Refills=1 Stop FLUoxetine HCl Capsule, 20 MG, Orally, 1 capsule, Once a day * true * Date: Generated for Kamini hernandez/Fátima/Inocente on: 0 10/29/2024 02:41 

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
--- OUTSIDE RECORDS SUMMARY | 2024-10-29 17:05 | XMS_ITS | Clinical Summary ---
Author Organization [facility] Address [address] [place] [address] Care Team Providers Care Peanut Butter Maker Name Role Phone Ray Payan MD Primary Care Provider [phone] Allergies No known active allergies Medications meclizine [...] Department Care Team Description 10/09/2024 3:00 PM SUPERVISOR ABATTOIR Office Visit [facility] Medical [facility] Pulmonology [address] [facility] [address] [place] [phone] Gasper Still MD Dyspnea on exertion (Primary Dx); Chest pain, unspecified type 10/02/2024 Telephone [facility] Medical Group Primary Care at [address] [phone] Ethan Randolph MD from Last [...] on file Legal Sex Male 10:09 PM SUPERVISOR ABATTOIR Gender Identity Not on file Sexual Orientation Not on file Obstetrics History Last Filed Vital Signs Vital Sign Reading Time Taken Comments Blood Pressure 112/79 10/09/2024 3:00 PM SUPERVISOR ABATTOIR Pulse 78 10/09/2024 3:00 PM SUPERVISOR ABATTOIR Temperature 36.4 C (97.5 F) 10/09/2024 3:00 PM SUPERVISOR ABATTOIR Respiratory Rate 18 10/09/2024 3:00 PM SUPERVISOR ABATTOIR Oxygen Saturation 97% 10/09/2024 3:00 PM SUPERVISOR ABATTOIR Inhaled Oxygen Concentration - - Weight 127 kg (280 lb) 10/09/2024 3:00 PM SUPERVISOR ABATTOIR Height 182.9 cm (6' 0.01 ) 10/09/2024 3:00 PM CS T Body Mass Index 37.97 10/09/2024 3:00 PM SUPERVISOR ABATTOIR Plan of Treatment Health Maintenance Due Date [...] patient's age to complete this topic Insurance [facility] Care Teams Peanut Butter Maker Relationship Specialty Start Date End Date Ray Payan MD [address] [place] [id number] PCP - General Emergency Medicine 09/29/23
--- OUTSIDE RECORDS SUMMARY | 2024-10-29 17:05 | XMS_ITS | Referral Summary ---
Author Organization [facility] Address [address] [place] [address] Care Team Providers Care Hose Maker Name Role Phone Ray Payan MD Primary Care Provider [phone] [facility],non-owned Affiliates and Associated Physician Practices is amultiple site organization consisting of ambulatory clinics and hospital sitesin [place], [place], [place] and [place]. This disclosure is being madepursuant to the Care Everywhere program and may not contain all information available regarding this patient. Last updated 18.[facility] Encounters Date Type Department Care Team Description [...] Comments Blood Pressure 112/68 07/15/2023 10:55 AM APPLICATION OPERATIONS ENGINEER Pulse 76 07/15/2023 10:55 AM APPLICATION OPERATIONS ENGINEER Temperature 36.5 C (97.7 F) 07/15/2023 10:55 AM APPLICATION OPERATIONS ENGINEER Respiratory Rate 19 07/15/2023 10:55 AM APPLICATION OPERATIONS ENGINEER Oxygen Saturation 100% 07/15/2023 10:55 AM APPLICATION OPERATIONS ENGINEER Inhaled Oxygen Concentration - - Weight 126.1 kg (278 lb) 06/22/2024 10:17 AM CDT Height 182.9 cm (6') 06/22/2024 10:17 AM CDT Body Mass Index 37.7 06/22/2024 10:17 AM CDT Plan of Treatment Upcoming Encounters Date Type Department Care Team (Late st Contact Info) Description 11/09/2024 9:00 AM APPLICATION OPERATIONS ENGINEER Office Visit [facility] - ENT [address] [place] [phone] 12/03/2024 9:00 AM CDT Office Visit [facility] - Neurology [address] [place] [phone] Deana Milton, TAILOR MEN'S READY TO WEAR-RECEPTIONIST SCHEDULER [address] [place] [address] [place] [address] Care Teams Hose Maker Relationship Specialty Start Date End Date Ray Payan MD [address] [place] [address] [address] [place] [address] PCP - General Family Medicine 10/19/24
--- OUTSIDE RECORDS SUMMARY | 2024-10-29 17:05 | XMS_ITS | Clinical Summary ---
Author Organization [facility] Address [address] [place] [phone] Care Team Providers Care Abrasive Water Jet Cutter Operator Name Role Phone Kacey Quigley MD Primary Care Provider Allergies No known active allergies Medications amoxicillin-clav ulanate (AUGMENTIN) 875-125 mg tabletIndication s:Acute otitis media, unspecified otitis media type Take 1 Tablet by mouth every 12 hours. 20 Tablet 3 Active fluticasone propionate (FLONASE) 50 mcg/spray [place], Suspension nasal inhalerIndicatio ns:Acute otitis media, unspecified [...] this topic Insurance OPEN ACCESS Care Teams Abrasive Water Jet Cutter Operator Relationship Specialty Start Date End Date Kacey Quigley MD [address] [place] [address] PCP - General Family Practice 12/29/22
--- OUTSIDE RECORDS SUMMARY | 2024-10-29 17:05 | XMS_ITS | Clinical Summary ---
Author Organization [facility] [employer] Address [address] [place] [address] Care Team Providers Care Supervisor Plastics Name Role Phone Ray Payan MD Primary Care Provider [phone] Source Comments [facility] [employer] [employer] [facility],non-owned Affiliates and Associated Physician Practices is amultiple site organization consisting of ambulatory clinics and hospital sitesin [place], [place], [place] and [place]. This disclosure is being madepursuant to the Care Everywhere program and may not contain all information available regarding this patient. Last updated 18.[facility] [employer] [employer] [facility] Allergies No known active allergies Medications * [...] Comments Blood Pressure 112/68 07/15/2023 10:55 AM RETAIL TEAM MEMBER Pulse 76 07/15/2023 10:55 AM RETAIL TEAM MEMBER Temperature 36.5 C (97.7 F) 07/15/2023 10:55 AM RETAIL TEAM MEMBER Respiratory Rate 19 07/15/2023 10:55 AM RETAIL TEAM MEMBER Oxygen Saturation 100% 07/15/2023 10:55 AM RETAIL TEAM MEMBER Inhaled Oxygen Concentration - - Weight 126.1 kg (278 lb) 06/22/2024 10:17 AM CDT Height 182.9 cm (6') 06/22/2024 10:17 AM CDT Body Mass Index 37.7 06/22/2024 10:17 AM CDT Plan of Treatment Upcoming Encounters Date Type Department Care Team (Late st Contact Info) Description 11/09/2024 9:00 AM RETAIL TEAM MEMBER Office Visit [facility] - ENT [address] [place] [phone] 12/03/2024 9:00 AM CDT Office Visit [facility] - Neurology [address] [place] [phone] Deana Milton, INSPECTOR AGRICULTURAL COMMODITIES-LICENSING WORKER [address] [place] [address] [place] [address] Health Maintenance Due Date Last Done Comments [...] age to complete this topic Care Teams Supervisor Plastics Relationship Specialty Start Date End Date Ray Payan MD [address] [place] [phone] PCP - General Family Medicine 10/19/24
--- OUTSIDE RECORDS SUMMARY | 2024-10-29 17:05 | XMS_ITS | Referral Summary ---
Author Organization [facility] Address [address] [place] [address] Care Team Providers Care Non Destructive Testing Supervisor Name Role Phone Ray Payan MD Primary Care Provider [phone] Encounters Date Type Department Care Team Description 10/09/2024 3:00 PM [employer] Office Visit [facility] Pulmonology [address] [place] [address] [place] [phone] Gasper Still MD Dyspnea on exertion (Primary Dx); Chest pain, unspecified type 10/02/2024 Telephone [facility] Primary Care at [address] [phone] Ethan Randolph MD from Last [...] on file Legal Sex Male 10:09 PM [employer] Gender Identity Not on file Sexual Orientation Not on file Last Filed Vital Signs Vital Sign Reading Time Taken Comments Blood Pressure 112/79 10/09/2024 3:00 PM [employer] Pulse 78 10/09/2024 3:00 PM [employer] Temperature 36.4 C (97.5 F) 10/09/2024 3:00 PM [employer] Respiratory Rate 18 10/09/2024 3:00 PM [employer] Oxygen Saturation 97% 10/09/2024 3:00 PM [employer] Inhaled Oxygen Concentration - - Weight 127 kg (280 lb) 10/09/2024 3:00 PM [employer] Height 182.9 cm (6' 0.01 ) 10/09/2024 3:00 PM CS T Body Mass Index 37.97 10/09/2024 3:00 PM [employer] Plan of Treatment Not on file Insurance Care Teams Non Destructive Testing Supervisor Relationship Specialty Start Date End Date Ray Payan MD [address] [place] [id number] PCP - General Emergency Medicine 09/29/23
--- OUTSIDE RECORDS SUMMARY | 2024-10-29 17:05 | XMS_ITS | CONTINUITY OF CARE DOCUMENT ---
Author Name jeison mchugh Address Unknown Organization [facility] Address [address] [address] [facility] [address] [place] [address] Phone [phone] Care Team Providers Care Bottom Bleacher Name Role Phone Leann DUNHAM, Flavia Roldan Unavailable [phone] FUNMI CHAUHAN MD Unavailable [phone] FUNMI CHAUHAN MD Unavailable [phone] PROBLEMS Condition Status Date Provider Notes Vitamin [...] Tre Fult[place] Chest pain active Yadira Ventimiglia [employer] Dizziness active Yadira Ventimiglia [employer] Snoring active Yadira Ventimiglia [employer] Cardiovascular Condition Screening active Danika Lewis 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 ENGINEER Fatigue active Danika Lewis BUILDING 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 ENGINEER [place]AP[place]O active Flavia Noriega MD Anxiety disorder generalized active Flavia Noriega MD HTN essential active Flavia Noriega MD Cardiology examination active Flavia gallego MD Body mass index (BMI) 39.0-39.9, adult active Flavia Noriega MD ENCOUNTERS Date Type Provider Location Encounter Diag nosis - In-person encounter Office Visit Flavia Noriega MD [facility] Cardiology examinationBody mass index (BMI) 39.0-39.9, adult - In-person encounter Office Visit Flavia Noriega MD [facility] Anxiety disorder generalizedHTN essential - In-person encounter Office Visit Flavia Noriega MD [facility] CHAPARRO - In-person encounter Office Visit Flavia Noriega MD [facility] Cardiovascular Condition ScreeningFatigue - In-person encounter Office Visit Flavia Noriega MD [facility] - In-person encounter Office Visit Flavia Noriega MD [facility] Chest painDizzinessSnoring - In-person encounter Office Visit Tre Suarez MD [facility] FAMILY HISTORY OF HEART DISEASETobacco use, [...] via Baez oxygen saturation, oximetry 97 % Yasemin Baez respiratory rate E&M 12 /min Yasemin [...] Ja rret blood pressure, systolic 115 mm[Hg] [facility] pulse rate 84 /min [facility] oxygen saturation, oximetry 97 % [facility] respiratory rate E&M 12 /min [facility] weight E&M 205 [lb_av] John y height E&M 71 [in_i] [facility] y Body Mass Index (Ratio) 28.73 kg/m2 Connor Noriega MD blood pressure, resting No Ashl ey Titchenlisa BUILDING 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 ENGINEER blood pressure, diastolic 63 mm[Hg] Li [employer] [...] iron binding capacity, unsaturated 203 ug/dL [facility] [phone]/07/0 3 iron binding capacity, total 280 ug/dL [facility] [phone]/07/0 3 free thyroxine index 1.9 [facility] 1.2-4.9 [...] 0-149 3 cholesterol, serum 165 mg/dL [facility] [phone]/07/0 3 basophil count, absolute 0.0 x10E3/uL [employer] [...] Estab. 3 platelet count 163 X10E3/UL [facility] [phone]/07/0 3 red blood cell distribution width 12.5 [...] 3.5-5.2 3 sodium, serum 143 mmol/L [facility] [phone]/07/0 3 urea nitrogen/creatinine ratio, serum 11 [employer] [...] lópez is a former smoker. Yadirajanay Cross [facility] social history reviewed E&M revi ewed - no changes required Yadira Ventimiglia [facility] drug use no Yadira Ventimig stephan [facility] alcohol use no Yadira Ventimig stephan [facility] smoking, year quit 2022 Deepa Will ianh smoking history, tot al pack/day 1/2 PPD Deepadonal George cigarette use yes Deepa Ariel smoking status Former smoker Deepa garay drug use no Yadira Ventimig stephan [facility] alcohol use no Yadira Ventimig stephan [facility] smoking history, tot al pack/day 1/2 PPD Sarah Carrizales cigarette use yes Sarah Carrizales smoking status Current every da y smoker Yadirajanay Hadleymijimenez [facility] quit smoking, stage quit Tre rao MD [...] Payer name Policy type / Coverage type [place] [employer] party ID [employer] MEDICAID (2) Medicaid [id number] ADVANCE DIRECTIVES Name Date DISCUSSED - NO DECISION MADE TREATMENT PLAN Date Name Performer [id number],C, w ith no arrhythmia on ekg today. Will check labs, echo and tele monitor Flavia Noriega MD [id number],C, n uclaer stress test Findings: /05/13/23 R [...] ejection fraction is 55%. Flavia Noriega MD [id number],C,1 ppd or less T he Patient was reencouraged to stop smoking. Flavia Noriega MD [id number],C, Flavia Noriega MD [id number],C,t ry autopap Home sleep study shows an AHI of 8.1 which is consistent with a diagnosis of mild CHAPARRO. Mean oxygen saturation of 9 5%, with the lowest being 87%. Flavia Noriega MD [id number],C, h ad stress test done and had no ischemia h e did treadmill stress and did 13 mets and had 84% MPHR wiht control of bp and no st changes noted with a normal stress but had 84% MPHR so he had nuclear stress done [facility] was R otating planar images show no [...] ejection fraction is 55%. Flavia Noriega MD [id number],C,h ad stress test done and had no ischemia h e did treadmill stress and did 13 mets and had 84% MPHR wiht control of bp and no st changes noted with a normal stress but had 84% MPHR so he had nuclear stress done [facility] was R otating planar images show no [...] ejection fraction is 55%. Danika Lewis NP [id number],S,s brynn has dizziness w ill need to see neurologuist at [facility] or [facility] Danika Lewis NP [id number],S,a rrange for home sleep study - C [...] There is mild pulmonic regurgitation. Danika Lewis BUILDING 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 ENGINEER [id number],C,n uclaer stress test Findings: 05/13/23 R otating [...] ventricular ejection fraction is 55%. Danika Lewis BUILDING 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 ENGINEER [id number],C,r eports snoring at night with episodes of apnea. Will plan for home sleep study Yadira Ventimiglia [facility] [id number],C,r esumed use. Cessation encouraged Terreton Ventimiglia [facility] [id number],C,w ith no arrhythmia on ekg today. Will check labs, echo and tele monitor Yadira Cross [facility] [id number],C,W ith feeling near syncopal. EKG shows NSR no acute changes. He had echo in 2019 with nml LV and mild NE. Would recommend follow up to r/o any valvular abnormalities of LV dysfunction. Would also plan tele to r/o arrhythmia. O rders: 9 9215 HIGH 40-54min (CPT-45404) C omplete Echo (CPT-23535) S tress Routine (CPT-41960) M onitor - Telemetry (Mobile Cardiac) (CPT-86425) S leep Study Home (CPT-61854) C arotid Duplex Bilateral (CPT-04595) T SH, free T4, total T3 (5157) Yadira Hadleymiglia [facility] [id number],C,C omes and goes occuring near daily. Pain is sharp in nature. Somewhat atypical, but given his SOB, palpitations and near syncope would recommend treadmill stress O rders: 9 9215 HIGH 40-54min (CPT-23403) C omplete Echo (CPT-83755) S tress Routine (CPT-72801) M onitor - Telemetry (Mobile Cardiac) (CPT-78345) S leep Study Home (CPT-41577) C arotid Duplex Bilateral (CPT-49021) T SH, free T4, total T3 (4064) Yadira Cross [employer] Cardiology: w ith no arrhythmia on ekg [...] MPHR so he had nuclear stress done [facility] was R otating planar images show no [...] MPHR so he had nuclear stress done [facility] was R otating planar images show no [...] w ill need to see neurologuist at [facility] or [facility] Flavia Noriega MD Cardiology: t ry autopap [...] Patient was reencouraged to stop smoking. Flavia Norigea MD Cardiology Flavia Noriega MD Cardiology:try autop [...] MPHR so he had nuclear stress done [facility] was R otating planar images show no [...] MPHR so he had nuclear stress done [facility] was R otating planar images show no [...] w ill need to see neurologuist at [facility] or [facility] Danika Lewis NP Cardiology:arrange f or home [...] plan for home sleep study Yadira Ventimiglia [facility] Cardiology:resumed use. Cessatio n encouraged Yadira Ventimiglia [facility] Cardiology:with no a rrhythmia on ekg today. Will check labs, echo and tele monitor Yadira Ventimiglia [facility] Cardiology:With feel ing near syncopal. EKG shows NSR no acute changes. He had echo in 2019 with nml LV and mild NE. Would recommend follow up to r/o any valvular abnormalities of LV dysfunction. Would also plan tele to r/o arrhythmia. O rders: 9 15 HIGH 40-54min (CPT-89542) C omplete Echo (CPT-52647) S tress Routine (CPT-69476) M onitor - Telemetry (Mobile Cardiac) (CPT-71444) Sleep Study Home (CPT-87612) C arotid Duplex Bilateral (CPT-18249) T SH, free T4, total T3 (1532) Yadira Ventimiglia [facility] Cardiology:Comes and goes occuring near daily. Pain is sharp in nature. Somewhat atypical, but given his SOB, palpitations and near syncope would recommend treadmill stress O rders: 9 15 HIGH 40-54min (CPT-65781) C omplete Echo (CPT-06834) S tress Routine (CPT-10016) M onitor - Telemetry (Mobile Cardiac) (CPT-65158) S lee Study Home (CPT-23409) C arotid Duplex Bilateral (CPT-01075) T SH, free T4, total T3 (7444) Yadira Ventimiglia [employer] :nml a1c and pro and lipse and amypse and crp and abd us Tre Suarez MD Tre Suarez MD :nml lipase and amlyadse Tre Suarez [...]
--- OUTSIDE RECORDS SUMMARY | 2024-10-29 17:05 | XMS_ITS | Continuity of Care Document ---
Author Organization [facility] Address [address] [place] [address] [place] [address] Phone Care Team Providers Care Outlet Manager Name Role Phone Cedrick Chin MD Unavailable Unavailable Allergies, Adverse Reactions, Alerts Substance Reaction Status Criticality ibuprofen Active No Information ketorolac Active No Information Medications Medication Instructions Dosage Effective Dates (start - stop) Status Comments Mccormick 5 mg-325 mg tablet take 1 tablet [...] Diagnoses Date Provider Providers Copied on Encounter [facility], [address], [place], [place], [id number], [place] tel:[phone] [facility] No Information Giuseppe Philip. [address], [address], [place], [place], [address], [place]. tel:[phone] Referring Provider: Cedrick Chin, [address], [place], [place], [address]. tel:[phone] OFFICE/OUTPAT IENT VISIT, EST [facility], [address], [place], [place], [address], [place] tel:[phone] [facility] humeral fracture1 (chief complaint) Pain in right upper arm Giuseppe Philip. [address], [address], [place], [place], [address], [place]. tel:[phone] Referring Provider: Cedrick Chin, [address], [place], [place], [address]. tel:[phone] PREV VISIT, NEW, AGE 18-39 [facility], [address], [place], [place], [address], [place] tel:[phone] [facility] PHysical (chief complaint) Encntr for general adult medical exam w/o abnormal findings Giuseppe Philip. [address], [address], [place], [place], [address], [place]. tel:[phone] Referring Provider: Cedrick Chin, [facility] [facility] [address] [place], [place], [address]. tel:[phone] Family History Family Member Type Diagnosis Age At Onset Brother Problem (finding) Alive and well Mother Problem (finding) Alive and well Father Problem (finding) Alive and well Payers Payer name Insurance type Covered constitution party ID Authoriza tion(s) No Information Social History [...] Pt did follow up with ortho at [facility] last month and he was told the [...]
--- OUTSIDE RECORDS SUMMARY | 2024-10-29 17:05 | XMS_ITS | Patient Health Summary ---
Author Organization [facility] Address [address] [place] [address] Care Team Providers Care B2B Sales Manager Name Role Phone Ray Payan MD Primary Care Provider [phone] Note from [facility],non-owned Affiliates and Associated Physician Practices is amultiple site organization consisting of ambulatory clinics and hospital sitesin [place], [place], [place] and [place]. This disclosure is being madepursuant to the Care Everywhere program and may not contain all information available regarding this patient. Last updated 18.[facility] Allergies No known active allergies Medications [...] Comments Blood Pressure 112/68 07/15/2023 10:55 AM PILATES COORDINATOR Pulse 76 07/15/2023 10:55 AM PILATES COORDINATOR Temperature 36.5 C (97.7 F) 07/15/2023 10:55 AM PILATES COORDINATOR Respiratory Rate 19 07/15/2023 10:55 AM PILATES COORDINATOR Oxygen Saturation 100% 07/15/2023 10:55 AM PILATES COORDINATOR Inhaled Oxygen Concentration - - Weight 126.1 [...] or More (06/22/2024 10:18 AM CDT) Narrative [facility] [address] - 06/22/2024 10:18 AM CDT Please see progress note in Epic for results. Barber Lema MD DIAGNOSTIC IMAGING O RDERABLES [facility] [address] * CT ABDOMEN PELVIS W CONTRAST (07/15/2023 3:04 PM PILATES COORDINATOR) Anatomical Region Laterality Modality Abdomen, Pelvis Computed Tomogra phy 07/15/2023 3:35 PM PILATES COORDINATOR Impressions 07/15/2023 4:26 PM PILATES COORDINATOR Impression: 1.No acute process identified in the abdomen or pelvis. 2.Trace free fluid in the pelvis. 3.Small umbilical hernia containing small bowel loops without obstruction. > Dictated by Hay Miller MD, MD (resident in diagnostic radiology). > Dictated by Hay Miller MD (Stonecutter Assistant) 07/15/2023 3:35 PM IConrado have personally reviewed and interpreted this examination/study. > Interpreting Provider: Conrado Sinclair on 07/15/2023 4:26 PM Narrative 07/15/2023 4:26 PM PILATES COORDINATOR PROCEDURE: CT ABDOMEN PELVIS W CONTRAST DATE/TIME [...] withoutobstruction. > Dictated by Hay Miller MD, (resident in diagnostic radiology). > Dictated by Hay Miller MD (Stonecutter Assistant) 07/15/2023 3:35 PM IConrado have personally reviewed and interpreted this examination/study. > Interpreting Provider: Conrado Sinclair on 07/15/2023 4:26 PM Jake Saucedo MD CT ORDERABLES * (ABNORMAL) COMPREHENSIVE METABOLIC PANEL (07/15/2023 11:51 AM PILATES COORDINATOR) Only the most recent of4 resultswithin the time period is included. BUN 13 7 - 26 mg/dL 07/15/2023 12:22 PM [facility] Creatinine 1.00 0.71 - 1.16 mg/dL 07/15/2023 12:22 PM [facility] Sodium 142 136 - 145 mmol/L 07/15/2023 12:22 PM [facility] Potassium 4.5 3.5 - 4.5 mmol/L 07/15/2023 12:22 PM [facility] Chloride 106 98 - 107 mmol/L 07/15/2023 12:22 PM [facility] CO2 30(H) 22 - 29 mmol/L 07/15/2023 12:22 PM [facility] Glucose 81 70 - 115 mg/dL 07/15/2023 12:22 PM [facility] Calcium 9.8 8.4 - 10.2 mg/dL 07/15/2023 12:22 PM [facility] Protein Total 7.2 6.0 - 8.3 g/dL 07/15/2023 12:22 PM [facility] Albumin 4.1 3.4 - 5.0 g/dL 07/15/2023 12:22 PM [facility] Bilirubin Total 0.3 0.2 - 1.2 mg/dL 07/15/2023 12:22 PM [facility] Alkaline Phosphatase 53 40 - 150 U/L 07/15/2023 12:22 PM [facility] ALT 47 5 - 55 U/L 07/15/2023 12:22 PM [facility] AST 31 5 - 34 U/L 07/15/2023 12:22 PM [facility] Anion Gap 6 6 - 16 07/15/2023 12:22 PM [facility] BUN/Creatinine Ratio 13 7 - 23 07/15/2023 12:22 PM [facility] Osmolality Calculated 293 275 - 295 mOsm/kg 07/15/2023 12:22 PM [facility] Albumin/Globulin Ratio 1.3 1.1 - 2.3 07/15/2023 12:22 PM [facility] eGFR by CKD-EPI >90 >=90 mL/min/1.7 3 m2 07/15/2023 12:22 PM [facility] Blood BLOOD SPECIMEN / Unknown Venipuncture / Unknown 07/15/2023 11:51 AM PILATES COORDINATOR 07/15/2023 11:55 AM [facility] Jake Saucedo MD LAB - CHEMISTRY [facility] [address] [place] [address], [place] [phone] * LIPASE BLOOD (07/15/2023 11:51 AM PILATES COORDINATOR) Pathologist [facility] Lipase 20 8 - 78 U/L 07/15/2023 12:22 PM [facility] Blood BLOOD SPECIMEN / Unknown Venipuncture / Unknown 07/15/2023 11:51 AM PILATES COORDINATOR 07/15/2023 11:55 AM PILATES COORDINATOR [facility] - 07/15/2023 12:22 PM PILATES COORDINATOR Lipase results from the [employer] Alinity analyzer may not be comparable with other methodologies. Jake Saucedo MD LAB - CHEMISTRY [facility] Performing Organization Address City/[facility]/ZIP Co de Phone Number [facility] [address] [place] [address], [facility] [phone] * CBC W AUTO DIFFERENTIAL (07/15/2023 11:50 AM PILATES COORDINATOR) Only the most recent of4 resultswithin the time period is included. WBC 7.7 3.5 - 10.5 10 3/uL 07/15/2023 12:04 PM [facility] RBC 5.05 4.30 - 5.70 10 6/uL 07/15/2023 12:04 PM [facility] Hemoglobin 14.9 12.0 - 17.6 g/dL 07/15/2023 12:04 PM [facility] Hematocrit 44.2 35.2 - 51.7 % 07/15/2023 12:04 PM [facility] MCV 87.5 80.7 - 98.3 fL 07/15/2023 12:04 PM [facility] MCH 29.5 26.7 - 34.0 pg 07/15/2023 12:04 PM [facility] MCHC 33.7 30.8 - 35.9 g/dL 07/15/2023 12:04 PM [facility] RDW-SD 40.6 36.0 - 50.0 fL 07/15/2023 12:04 PM [facility] RDW-CV 12.7 11.2 - 14.8 % 07/15/2023 12:04 PM [facility] Platelet Count 179 150 - 400 10 3/uL 07/15/2023 12:04 PM [facility] MPV 9.5 9.4 - 12.9 fL 07/15/2023 12:04 PM [facility] nRBC Absolute 0.00 0 10 3/uL 07/15/2023 12:04 PM [facility] nRBC Auto 0.0 0 /100 WBC 07/15/2023 12:04 PM [facility] Neutrophils % 51.6 35.0 - 70.0 % 07/15/2023 12:04 PM [facility] Lymphocytes % 35.0 20.0 - 43.0 % 07/15/2023 12:04 PM [facility] Monocytes % 7.0 5.0 - 13.0 % 07/15/2023 12:04 PM [facility] Eosinophils % 5.4 0.0 - 6.0 % 07/15/2023 12:04 PM [facility] Basophil % 0.6 0.0 - 2.0 % 07/15/2023 12:04 PM [facility] Neutrophils Absolute 3.97 1.60 - 7.00 10 3/uL 07/15/2023 12:04 PM [facility] Lymphocyte Absolute 2.70 1.10 - 3.90 10 3/uL 07/15/2023 12:04 PM [facility] Monocytes Absolute 0.54 0.26 - 1.07 10 3/uL 07/15/2023 12:04 PM [facility] Eosinophils Absolute 0.42 0.00 - 0.47 10 3/uL 07/15/2023 12:04 PM [facility] Basophils Absolute 0.05 0.00 - 0.08 10 3/uL 07/15/2023 12:04 PM [facility] Immature Granulocytes % 0.4 0.0 - 1.0 % 07/15/2023 12:04 PM [facility] Immature Granulocytes Absolute 0.03 07/15/2023 12:04 PM [facility] Blood BLOOD SPECIMEN / Unknown Venipuncture / Unknown 07/15/2023 11:50 AM PILATES COORDINATOR 07/15/2023 11:57 AM PILATES COORDINATOR Jake Saucedo MD LAB - HEMATOLOGY ORD ERACHAI Performing Organization Address [facility]/ZIP Co de Phone Number [address] [address], [facility] [phone] * CARDIAC EKG ORDER (02/18/2021 1:14 PM CDT) Narrative 02/18/2021 1:14 PM CDT Ordered by an unspecified provider. Scanned Document CARDIAC SERVICES ORD ERABLES * TROPONIN I (02/17/2021 2:59 AM CDT) Troponin I <0.010 <0.032 ng/mL 02/17/2021 3:44 AM CDT [facility] Blood BLOOD SPECIMEN / Unknown Venipuncture / Unknown 02/17/2021 2:59 AM CDT 02/17/2021 3:13 AM CDT Jake Saucedo MD LAB - CHEMISTRY [facility] Performing Organization Address [facility] Co de Phone Number [address] [address], [facility] [phone] * XR CHEST 1VW PORTABLE (02/17/2021 12:59 [...] is intact. Dictated by Kaushik Bejarano MD (resident in diagnostic radiology). I, Dr. BERTA BLANKENSHIP MD have personally [...] is intact. Dictated by Kaushik Bejarano MD (resident in diagnostic radiology). IDr. BERTA MD have personally reviewed and interpreted this examination/study. This report was electronically signed by BERTA BLANKENSHIP MD on 02/17/2021 9:18 AM . Jake Saucedo MD DIAGNOSTIC IMAGING O RDERABLES * EKG 12-LEAD (02/17/2021 12:37 AM CDT) Ventricular Rate 58 BPM [facility] MUSE Atrial Rate 58 BPM [facility] MUSE P-R Interval 154 ms [facility] M[facility] QRS Duration ms 78 ms [facility] Q-T Interval ms 408 ms [facility] MUSE QTC Calculation (Bezet) 400 ms [facility] MUSE Calculated P [place] 75 degrees SL MUSE Calculated R [place] 57 degrees SL MUSE Calculated T [place] 34 degrees [facility] MUSE Interpretation EKG SINUS BRADYCARDIA OTHERWISE NORMAL ECG NO PREVIOUS ECGS AVAILABLE Confirmed by Alan Herndon ([id number]) on 02/17/2021 2:39:30 PM [facility] MUSE 02/17/2021 12:3 7 AM CDT 02/17/2021 2:39 PM CDT Jake Saucedo MD ECG ORDERABLES [facility] MUSE * XR HUMERUS RIGHT 2VW OR MORE (09/25/2019 10:28 AM PILATES COORDINATOR) Only the most recent of7 resultswithin the time period is included. Anatomical Region Laterality Modality Upper Extremity Radiographic Kristel ging 09/25/2019 2:04 PM PILATES COORDINATOR Impressions 09/25/2019 2:05 PM PILATES COORDINATOR IMPRESSION: Healed humeral fracture. This report was electronically signed by MEHDI BREWER MD on 09/25/2019 2:05 PM . Narrative 09/25/2019 2:05 PM PILATES COORDINATOR Exam: XR HUMERUS RIGHT 2VW History: Right [...] RIGHT 3VW OR MORE (07/25/2018 8:55 PM PILATES COORDINATOR) Anatomical Region Laterality Modality Upper Extremity Radiographic Kristel ging 07/25/2018 9:08 PM PILATES COORDINATOR Impressions 07/26/2018 9:47 AM PILATES COORDINATOR IMPRESSION: No acute osseous injury of the elbow. Soft tissue swelling around elbow/forearm. Dictated by Abram St MD (resident in diagnostic radiology). I, Dr. MAGUE ARNOLD M.D. have personally reviewed and interpreted this examination/study. This report was electronically signed by MAGUE ARNOLD M.D. on 07/26/2018 9:47 AM . Narrative 07/26/2018 9:47 AM PILATES COORDINATOR EXAMINATION: XR ELBOW RIGHT 3VW OR MORE [...] around elbow/forearm. Dictated by Abram St MD (resident in diagnostic radiology). Dr. MAGUE Beatty M.D. have personally reviewed and interpreted this examination/study. This report was electronically signed by MAGUE ARNOLD M.D. on07/26/2018 9:47 AM . Rosemary Ramey PA-C DIAGNOSTIC I MAGING ORDERABLES * XR FOREARM RIGHT 2VW (07/25/2018 8:55 PM PILATES COORDINATOR) Anatomical Region Laterality Modality Upper Extremity Radiographic Kristel ging 07/25/2018 9:02 PM PILATES COORDINATOR Impressions 07/26/2018 9:45 AM PILATES COORDINATOR IMPRESSION: No acute osseous abnormality. Soft tissue swelling. Dictated by Abram St MD (resident in diagnostic radiology). Dr. MAGUE Beatty M.D. have personally reviewed and interpreted this examination/study. This report was electronically signed by MAGUE ARNOLD M.D. on 07/26/2018 9:45 AM . Narrative 07/26/2018 9:45 AM PILATES COORDINATOR EXAMINATION: XR FOREARM RIGHT 2VW HISTORY: pain, [...] tissue swelling. Dictated by Abram St MD (resident in diagnostic radiology). I, Dr. MAGUE ARNOLD M.D. have personally reviewed and interpreted this examination/study. This report was electronically signed by MAGUE ARNOLD M.D. on07/26/2018 9:45 AM . Rosemary Ramey PA-C DIAGNOSTIC I MAGING ORDERABLES * (ABNORMAL) C-REACTIVE PROTEIN (07/25/2018 7:40 PM PILATES COORDINATOR) C-Reactive Protein 1.1(H) <=0.5 mg/dL 07/25/2018 8:06 PM PILATES COORDINATOR [facility] Blood BLOOD SPECIMEN / Unknown Venipuncture / Unknown 07/25/2018 7:40 PM PILATES COORDINATOR 07/25/2018 7:45 PM PILATES COORDINATOR Rosemary Ramey PA-C LAB - CHEMIS TRY ORDERABLES [address] [phone] * CULTURE BLOOD (07/25/2018 7:40 PM PILATES COORDINATOR) Only the most recent of2 resultswithin the time period is included. Culture No growth day 5 DAVID 07/30/2018 11:31 PM PILATES COORDINATOR [facility] Blood PERIPHERAL BLOOD / Unknown Venipuncture / Unknown 07/25/2018 7:40 PM PILATES COORDINATOR 07/25/2018 7:45 PM PILATES COORDINATOR Rosemary Ramey PA-C LAB - MICROB IOLOGY ORDERABLES [facility] [address] [place] [address], [facility] [phone] * ERYTHROCYTE SEDIMENTATION RATE (07/25/2018 7:40 PM PILATES COORDINATOR) Erythrocyte Sedimentation Rate Westergren 10 0 - 15 MM/HR 07/25/2018 8:05 PM PILATES COORDINATOR [facility] Blood BLOOD SPECIMEN / Unknown Venipuncture / Unknown 07/25/2018 7:40 PM PILATES COORDINATOR 07/25/2018 7:45 PM PILATES COORDINATOR Rosemary Ramey PA-C LAB - HEMATO LOGY ORDERABLES [facility] [address] [place] [address], [facility] [phone] * CT HEAD WO CONTRAST (06/27/2018 8:38 [...] NANCY KING on 06/28/2018 9:28 AM . Ophelia Brink PA-C CT ORDERABLES * (ABNORMAL) DRUG SCREEN TOX URINE PANEL (06/26/2018 1:24 AM [facility]) [facility] Amphetamines Screen Urine Negative Negative : < 1000 ng/mL 06/26/2018 1:58 AM [facility] Barbiturates Screen Urine Negative Negative : < 200 ng/mL 06/26/2018 1:58 AM [facility] Benzodiazepine Screen Urine Negative Negative : < 200 ng/mL 06/26/2018 1:58 AM [facility] Opiates Urine Positive(A) Negative : < 300 ng/mL 06/26/2018 1:58 AM [facility] Comment: Positive urine opiate screening results should be confirmed by another generally accepted non-immunological method such as gas chromatography or mass spectrometry. Cocaine Metabolites Urine Negative Negative : < 300 ng/mL 06/26/2018 1:58 AM [facility] Phencyclidine Screen Urine Negative Negative : < 25 ng/ml 06/26/2018 1:58 AM [facility] Cannabinoids Screen Urine Positive(A) Negative : <50 ng/mL 06/26/2018 1:58 AM CDT [facility] Comment: Positive urine cannabinoids (THC) screening results should be confirmed by another generally accepted non-immunological method such as gas chromatography or mass spectrometry. Methadone Screen Urine Negative Negative : < 300 ng/mL 06/26/2018 1:58 AM CDT [facility] Urine URINE / Unknown Collection / Unknown 06/26/2018 1:24 AM CDT 06/26/2018 1:31 AM CDT Narrative [facility] - 06/26/2018 1:58 AM CDT The Urine Toxicology Screening Panel does not screen for Propoxyphene, Meprobamate, Carisoprodol, Trazodone, tzke-ryz-qsruqad medications and/or volatiles (Acetone, Isopropanol, Methanol or Ethylene Glycol). Ethanol, Salicylate, Acetaminophen, Tricyclic Antidepressants and several therapeutic drugs may be individually assayed in serum or plasma specimen. Toxicology testing by the [facility] is an aid to medical diagnosis and treatment of patients. No documented chain of custody was maintained. Results are intended to be used for clinical purposes only. Clay Wheeler DO LAB - URINE CHEMISTR Y ORDERABLES Performing Organization Address City/[facility]/ZIP Co de Phone Number [address] [phone] * TYPE + SCREEN PANEL (06/26/2018 12:42 AM CDT) Antibody Screen NEG 8 1:49 AM CDT [facility] LAB ABO Rh A NEG 06/26/2018 1:49 AM CDT [facility] LAB Blood Bank BLOOD SPECIMEN / Unknown Venipuncture / Unknown 06/26/2018 12:42 AM CDT 06/26/2018 12:50 AM CDT Clay Wheeler DO LAB - BLOOD BANK ORD ERABLES Performing Organization Address City/[facility]/ZIP Co de Phone Number [facility] LAB [address] [place] [address] * RETYPE PATIENT (06/26/2018 12:30 AM CDT) ABO 06/26/2018 2:00 AM CDT [facility] LAB Rh Type 06/26/2018 2:00 AM CDT [facility] LAB Typem 06/26/2018 2:00 AM CDT [facility] LAB Interpretation 06/26/2018 2:00 AM CDT [facility] LAB Blood BLOOD SPECIMEN / Unknown Lab Venipuncture / Unknown 06/26/2018 12:30 AM CDT 06/26/2018 12:51 AM CDT Narrative [facility] LAB - 06/26/2018 2:00 AM CDT Re-type confirmed per [facility] Blood Bank policies & procedures. Results documented in department. Penny Oconnell MD LAB - BLOOD BANK ORD ERABLES Performing Organization Address City/State/[facility] Co de Phone Number [facility] BLOOD [facility] LAB [address] * CT ANGIO CHEST (06/26/2018 12:13 [...] phase study. Dictated by Román Guevara MD (resident in diagnostic radiology). I, Dr. SHAHLA CRAVEN M.D. have personally [...] phase study. Dictated by Román Guevara MD (resident in diagnostic radiology). Dr. SHAHLA Beatty M.D. have personally reviewed [...] upper hemithorax. Dictated by Uzair Estrada MD (resident in diagnostic radiology). Dr. ALIREZA Beatty have personally reviewed and [...] upper hemithorax. Dictated by Uzair Estrada MD (resident in diagnostic radiology). I, Dr. ALIREZA WILKINS have personally reviewed and interpreted this examination/study. This report was electronically signed by ALIREZA WILKINS on 06/26/2018 9:25 AM . Clay Wheeler DO DIAGNOSTIC IMAGING O RDERABLES * PT-INR [facility] (06/25/2018 11:42 PM CDT) PT 12.7 12.1 - 14.8 Seconds 06/25/2018 11:57 PM CDT [facility] INR 1.0 See Comment 06/25/2018 11:57 PM T [facility] Comment: The suggested therapeutic range for standard coumadin (warfarin) therapy is an INR of 2.0-3.0. For high-risk patients (Mechanical Mitral Valve Prosthesis, etc.), the suggested prophylactic therapeutic range is an INR of 2.5-3.5. Blood BLOOD SPECIMEN / Unknown Venipuncture / Unknown 06/25/2018 11:42 PM CDT 06/25/2018 11:46 PM CDT Clay Wheeler DO LAB - COAGULATION OR DERABLES [address] [phone] * ALCOHOL ETHYL BLOOD (06/25/2018 11:42 PM CDT) Interpretation Ethanol None Detected None Detected mg/dL 06/26/2018 12:07 AM CDT [facility] Comment: Ethanol levels less than 10 mg/dL are resulted as None detected . Blood BLOOD SPECIMEN / Unknown Venipuncture / Unknown 06/25/2018 11:42 PM CDT 06/25/2018 11:46 PM CDT Clay Wheeler DO LAB - CHEMISTRY [facility] [address] [phone] Care Teams B2B Sales Manager Relationship Specialty Start Date End Date Ray Payan MD [address] [place] [id number] PCP - General Family Medicine 10/19/24
== END 2024-10-29 14:54 | disposition left against medical advice (07) ==
PROVIDERS: PCP Emergency Medicine
DX: R51.9 Headache, unspecified (principal)
CPT/HCPCS: 99199

== ENCOUNTER 2024-11-15 16:10 | Emergency (ER) | payer OTHER, SELFPAY ==
[2024-11-15 16:13] VITALS: BP 123/90; PULSE 100; RESP 18; TEMP 36.2; O2SAT 100
--- NOTE | 2024-11-15 17:05 | PC.NURSE ---
NO ANSWER WHEN CALLED
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
--- OUTSIDE RECORDS SUMMARY | 2024-11-15 17:32 | XMS_ITS | Data Portability ---
Author Organization [facility] [employer], Main Office Address [address] [place] [address] Assessment Encounter Date Assessment Date Assessment LastModified by Organization Details LastModified Time 10/04/2023 10/04/2023 P and A total matrixectomy, Rt tibial border. No issues or complications during tx. [email or web address] Not available 10/04/2023 16:15:44 10/18/2023 10/18/2023 P and A partial nail avulsions, tib and fib borders, Lt great toenail under local anesthesia [email or web address] Not available 10/18/2023 14:48:31 Plan of Treatment Reminders Order Date Submit Date Provider Last Modified By Organization Details Last Modified Time Details Appointments New Patient 15 2024 10:30A M Mariajose Saleem MD Not available Not available Not available Lab None recorded . Referral None recorded . Procedures None recorded . Surgeries None recorded . Imaging None recorded . Medication Orders Silvaden e 1 % topical cream 2023 024 [facility] #[id number], [address] , [place], [address], 10/04/2023 16:16:25 Diflucan 200 mg tablet 2023 024 [facility] #[id number], [address], [place], [address], 10/04/2023 16:16:25 Patient TargetsNo targets recorded. Patient Instructions Encounter Date Encounter Id Patient Instructions Last Modified By Organization Details Last Modified Time 10/04/2023 [id number] Soaking instructions, qd in warm, soapy water. Dispensed 4 x4 gauze for dressings and Silvadene. [email or web address] Not available 10/04/2023 16:16:21 10/18/2023 [id number] pt given soaking instructions and gauze for soaks. [email or web address] Not available 10/18/2023 14:50:39 Reason for Referral None Reported. 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 Procedures Surgical History Date Name Laterality Status Provider Name and Address Organization Details Recorded Time 5 Partial Nail Avulsion Chemical Matrixectomy- Right completed Zohaib Denny DPM [address], [address] [address], [place], [address], Patience 10/10/2024 09:15:52 4 Partial Nail Avulsion Chemical Matrixectomy- Left completed Zohaib Denny DPM [address], [address] [address], [place], [address], [facility]ience 10/18/2023 14:46:28 Imaging Results None recorded. Procedure Notes None recorded. Medical Equipment None Reported. Allergies No known drug allergies Medications Name Sig Start Date Stop Date Status Note LastModified by Organization Details LastModified Time amoxicillin 500 mg capsule TAKE 1 CAPSULE BY MOUTH EVERY 8 HOURS UNTIL GONE active Not Available Not Available N ot Available silver sulfadiazine 1 % topical cream APPLY A 1/16 INCH (1.5 MM) THICK LAYER TO ENTIRE BURN AREA BY TOPICALROUT E 2 TIMES PER DAY active Not Available Not Available No t Available cetirizine 10 mg tablet TAKE 1 TABLET BY MOUTH EVERY DAY active Not Available Not Available No t Available azithromycin 250 mg tablet active Not Available Not Available Not Available ibuprofen 800 mg tablet TAKE 1 TABLET BY MOUTH EVERY 8 HOURS active Not Available Not Available No t Available ofloxacin 0.3 % eye drops PLACE 2 DROPS IN BOTH EYES 4 TIMES A DAY active Not Available Not Available Not Available hydrocodone 5 mg-acetamino phen 325 mg tablet TAKE 1 TABLET BY MOUTH EVERY 4 TO 6 HOURS NEEDED FOR PAIN active Not Available Not Available No t Available fluconazole 200 mg tablet TAKE 1 TABLET BY MOUTH EVERY WEEK active Not Available Not Available No t Available prednisone 20 mg tablet TAKE 1 TABLET BY MOUTH TWICE DAILY, TAKE BEFORE 3PM active Not Available Not Available N ot Available metronidazol e 500 mg tablet TAKE 1 TABLET BY MOUTH EVERY 12 HOURS FOR 10 DAYS active Not Available Not Available Not Available ciprofloxaci n 500 mg tablet TAKE 1 TABLET BY MOUTH EVERY 12 HOURS FOR 10 DAYS active Not Available Not Available Not Available peg-electrol yte solution 420 gram oral solution TAKE DIRECTED BY OFFICE active Not Available Not Available No t Available omeprazole 40 mg capsule,crow yed release TAKE 1 CAPSULE BY MOUTH TWICE A DAY BEFORE A MEAL active Not Available Not Available No t Available acetaminophe n 500 mg tablet TAKE 2 TABLETS BY MOUTH EVERY 6 HOURS NEEDED FOR PAIN active Not Available Not Available No t Available amoxicillin 500 mg tablet TAKE 1 TABLET BY MOUTH EVERY 8 HOURS active Not Available Not Available No t Available oxycodone-ac etaminophen 5 mg-325 mg tablet TAKE 1 TABLET BY MOUTH EVERY 5 HOURS NEEDED FOR PAIN *MD NOT ENROLLED IN STATE MEDICAID PROGRAM* active Not Available Not Available No t Available meclizine 25 mg tablet TAKE 1 TABLET BY MOUTH TWICE A DAY active Not Available Not Available No t Available paroxetine 20 mg tablet TAKE 1 TABLET BY MOUTH EVERY DAY IN THE MORNING active Not Available Not Available No t Available pantoprazole 40 mg tablet,delay ed release TAKE 1 TABLET BY MOUTH TWICE A DAY active Not Available Not Available No t Available promethazine 25 mg tablet TAKE 1/2 TABLET BY MOUTH EVERY 6 HOURS NEEDED FOR NAUSEA active Not Available Not Available No t Available omeprazole 20 mg capsule,crow yed release TAKE 1 CAPSULE BY MOUTH DAILY active Not Available Not Available Not Available hydroxyzine HCl 25 mg tablet TAKE 1 TABLET BY MOUTH THREE TIMES DAILY NEEDED FOR ANXIETY active Not Available Not Available Not Available pravastatin 20 mg tablet TAKE 1 TABLET BY MOUTH EVERY DAY active Not Available Not Available No t Available ergocalcifer ol (vitamin D2) 1,250 mcg (50,000 unit) capsule TAKE 1 CAPSULE BY MOUTH ONE TIME PER WEEK active Not Available Not Available No t Available polyethylene glycol 3350 17 gram/dose oral powder active Not Available Not Available Not Available methylpredni solone 4 mg tablets in a dose pack TAKE 6 TABLETS ON DAY 1 DIRECTED ON PACKAGE AND DECREASE BY 1 TAB EACH DAY FOR A TOTAL OF 6 DAYS active Not Available Not Available No t Available albuterol sulfate HFA 90 mcg/actuatio n aerosol inhaler INHALE 2 PUFFS BY MOUTH EVERY 6 HOURS NEEDED FOR SHORTNESS OF BREATH OR WHEEZING active Not Available Not Available Not Available fluoxetine 20 mg capsule TAKE 1 CAPSULE BY MOUTH EVERY DAY FOR 30 DAYS active Not Available Not Available No t Available fluticasone propionate 50 mcg/actuatio n nasal spray,suspen joon INSTILL 1-2 SPRAYS INTO EACH NOSTRIL TWICE DAILY X1 WEEK THEN ONCE DAILY active Not Available Not Available No t Available doxycycline hyclate 100 mg tablet TAKE 1 TABLET BY MOUTH TWICE A DAY active Not Available Not Available No t Available naproxen 500 mg tablet TAKE 1 TABLET BY MOUTH TWICE A DAY NEEDED FOR PAIN active Not Available Not Available No t Available amoxicillin 875 mg-potassium clavulanate 125 mg tablet TAKE 1 TABLET BY MOUTH TWICE A DAY X7 DAYS active Not Available Not Available No t Available neomycin-michael ymyxin-hydro zak 3.5 mg-10,000 unit/mL-1 % ear drops,susp 2 DROPS AFFECTED EAR 4 TIMES A DAY active Not Available Not Available No t Available fenofibrate nanocrystall ized 145 mg tablet TAKE 1 TABLET BY MOUTH EVERY DAY active Not Available Not Available No t Available mesalamine 1.2 gram tablet,delay ed release TAKE 2 TABLETS BY MOUTH ONCE DAILY WITH A MEAL active Not Available Not Available No t Available Vitals Date Recorded Body height Body temperature Oxygen saturation Oxygen saturation in Arterial blood by Pulse oximetry Heart rate Systolic blood pressure Diastolic blood pressure Provider Name and Address Organization Details Last Updated DateTime 4 182.88 cm 98.8 [degF] 98 % 98 % 83 /min 137 mm[Hg] 79 mm[Hg] JOSE ARMANDO Quinn [place] [facility] 4 15:10:04 Date Recorded Body height Provider Name an d Address Organization Details Last Updated DateTime 10/18/2023 182.88 cm JOSE ARMANDO Quinn [facility] [employer] [facility] 10/18/2023 11:56:11 Date Recorded Body height Oxygen saturation Oxygen saturation in Arterial blood by Pulse oximetry Body temperature Heart rate Body mass index (BMI) Body weight Provider Name and Address Organization Details Last Updated DateTime 182.88 cm 97 % 97 % 98.2 [degF] 88 /min 0.3 kg/m2 907.18 g JOSE ARMANDO Quinn [facility] [employer] [facility] 12:27:05 Social History Question Answer Notes LastModified by Organizat ion Details LastModified Time Tobacco Smoking Status Former Smoker JOSE ARMANDO Quinn [facility] [employer] [facility] 10/04/2023 15:02:44 What Is Your Level Of Alcohol Consumption? Occasional [email or web address] Information not available 10/04/2023 What Is Your Level Of Caffeine Consumption? Occasional [email or web address] Information not available 10/04/2023 What Was The Date Of Your Most Recent Tobacco Screening? 10/09/2024 [email or web address] Information not available 10/09/2024 Has Tobacco Cessation Counseling Been Provided? No Information not available 10/04/2023 Do You Or Have You Ever Used Any Other Forms Of Tobacco Or Nicotine? No [email or web address] Information not available 10/04/2023 Sex: Unknown Functional Status None recorded. Mental Status None recorded. Family History Nothing Reported. Medical History No medical history recorded. Past Encounters Encounter ID Performer Location Encounter Start Date Encounter Closed Date Diagnosis/Indication Diagnosis SNOMED-CT Code Diagnosis ICD10 Code Diagnosis Note [id number] NABILA Mitchell[facility] [address] [facility] [place] [address] 10/04/2023 14:41:21 04/07/2024 04:04:32 Paronychia of toe of right foot 9564048414 9662246 L03.031 Onychomyco sis of toenails 099274665 B35.1 [id number] NABILA MitchellG [facility] [address] [facility] [address] [place] [address] 10/18/2023 11:28:35 10/18/2023 16:33:13 Paronychia of toe of left foot 8317348489 7403833 L03.032 both borders hallux [id number] Zohaib Denny DPM [facility] [address] [facility] [address] [place] [address] 10/09/2024 12:13:26 10/10/2024 14:04:27 Health Concerns Section Related Observation LastModified by Organization Detai ls LastModified Time None Recorded Concern Status LastModified by Organization Details LastModified Time None Recorded Advance Directives Directive None Recorded Payers Encounter Date Sequence Insurance Name Policy Number Policy Amin Covered Member ID Amin Member ID Guarantor Name 10/04/2023 2 [facility] ON OR AFTER 03/05/21 (MEDICAID REPLACEMENT - HMO) Nitin Perez [id number] Nitin Perez 10/18/2023 2 [facility] ON OR AFTER 03/05/21 (MEDICAID REPLACEMENT - HMO) Nitin Perez [id number] Nitin Perez 10/09/2024 [facility] ON OR AFTER 03/05/21 (MEDICAID REPLACEMENT - HMO) 000 Nitin Perez [id number] Nitin Perez 10/09/2024 1 [facility] ON OR AFTER 03/05/21 (MEDICAID REPLACEMENT - HMO) Nitin Perez [id number] Nitin Perez Notes Date Note Type Note Provider Name and Address Organization Details Recorded Time 10/04/2023 text/html Pt has had a red , painful, ingrown nail, Rt great toe, for several mos. Self-txed, with limited success. Continues to recur. Currently, pt can't tolerate his steel toed shoes at work. Seeks permanent correction at this time. Plus tx of dislocoration and thickening of the great toenails. Zohaib Denny DPM [address] [facility] [facility] [address], [place], [address], [employer] 10/04/2023 16:16:29 10/18/2023 text/html Well healed Rt great toenail. No erythema, purulence. Pt may d/c local wound care and soaks. Zohaib Denny DPM [address], [facility] [address], [place], [address], [employer] 10/18/2023 14:50:47 10/09/2024 text/html Pt RTC for c/o painful ingrown toenail Rt inside border; red and inflamed, very painful. Zohaib Denny DPM [address], [facility] [address], [place], [address], [employer] 10/10/2024 09:15:59
--- OUTSIDE RECORDS SUMMARY | 2024-11-15 17:32 | XMS_ITS | Referral Summary ---
Author Organization [facility] Address [address] [place] [address] Care Team Providers Care Shaker Plate Operator Name Role Phone Ray Payan MD Primary Care Provider [phone] Encounters Date Type Department Care Team Description 10/09/2024 3:00 PM SEMICONDUCTOR LAB TECHNICIAN Office Visit [facility] Pulmonology [address] [place] [address] [place] [phone] Gasper Still MD Dyspnea on exertion (Primary Dx); Chest pain, unspecified type 10/02/2024 Telephone [facility] Primary Care at [address] [phone] Ethan Randolph MD from Last [...] on file Legal Sex Male 10:09 PM SEMICONDUCTOR LAB TECHNICIAN Gender Identity Not on file Sexual Orientation Not on file Last Filed Vital Signs Vital Sign Reading Time Taken Comments Blood Pressure 112/79 10/09/2024 3:00 PM SEMICONDUCTOR LAB TECHNICIAN Pulse 78 10/09/2024 3:00 PM SEMICONDUCTOR LAB TECHNICIAN Temperature 36.4 C (97.5 F) 10/09/2024 3:00 PM SEMICONDUCTOR LAB TECHNICIAN Respiratory Rate 18 10/09/2024 3:00 PM SEMICONDUCTOR LAB TECHNICIAN Oxygen Saturation 97% 10/09/2024 3:00 PM SEMICONDUCTOR LAB TECHNICIAN Inhaled Oxygen Concentration - - Weight 127 kg (280 lb) 10/09/2024 3:00 PM SEMICONDUCTOR LAB TECHNICIAN Height 182.9 cm (6' 0.01 ) 10/09/2024 3:00 PM CS T Body Mass Index 37.97 10/09/2024 3:00 PM SEMICONDUCTOR LAB TECHNICIAN Plan of Treatment Not on file Insurance Care Teams Shaker Plate Operator Relationship Specialty Start Date End Date Ray Payan MD [address] [place] [id number] PCP - General Emergency Medicine 09/29/23
--- OUTSIDE RECORDS SUMMARY | 2024-11-15 17:33 | XMS_ITS | Continuity of Care Document ---
Author Organization [facility] Address [address] [place] [address] [place] [address] Phone Care Team Providers Care Hydrogen Power Plant Manager Name Role Phone Cedrick Chin MD Unavailable Unavailable Allergies, Adverse Reactions, Alerts Substance Reaction Status Criticality ibuprofen Active No Information ketorolac Active No Information Medications Medication Instructions Dosage Effective Dates (start - stop) Status Comments [place] 5 mg-325 mg tablet take 1 tablet [...] Diagnoses Date Provider Providers Copied on Encounter [facility], [address], [place], [place], [id number], [place] tel:[phone] [facility] No Information Giuseppe Philip. [address], [place], [place], [id number], [place]. tel:[phone] Referring Provider: Cedrick Chin, [address], [place], [place], [id number]. tel:[phone] OFFICE/OUTPAT IENT VISIT, EST [facility], [address], [place], [place], [id number], [place] tel:[phone] [facility] humeral fracture1 (chief complaint) Pain in right upper arm Giuseppe Philip. [address], [place], [place], [id number], [place]. tel:[phone] Referring Provider: Cedrick Chin, [address], [place], [place], [id number]. tel:[phone] PREV VISIT, NEW, AGE 18-39 [facility], [address], [place], [place], [id number], [place] tel:[phone] [facility] Medicine PHysical (chief complaint) Encntr for general adult medical exam w/o abnormal findings Giuseppe Philip. [address], [place], [place], [id number], [place]. tel:[phone] Referring Provider: Cedrick Chin, [facility] [place], [place], [id number]. tel:[phone] Family History Family Member Type Diagnosis Age At Onset Brother Problem (finding) Alive and well Mother Problem (finding) Alive and well Father Problem (finding) Alive and well Payers Payer name Insurance type Covered alliance party ID Authoriza tion(s) No Information Social [...] Pt did follow up with ortho at [facility] last month and he was told [...]
--- OUTSIDE RECORDS SUMMARY | 2024-11-15 17:33 | XMS_ITS | Clinical Summary ---
Author Organization [facility] Address [address] [facility] [place] [address] Care Team Providers Care Vice President Of Human Resources Name Role Phone Ray Payan MD Primary Care Provider [phone] [facility],non-owned Affiliates and Associated Physician Practices is amultiple site organization consisting of ambulatory clinics and hospital sitesin [place], [place], [place] and [place]. This disclosure is being madepursuant to the Care Everywhere program and may not contain all information available regarding this patient. Last updated 18.[facility] Allergies No known active allergies Medications * [...] acetaminophen (TYLENOL) daily. 30 tablet 09/12/2018 Active albuterol HFA (Proventil; Ventolin; Proair) 108 (90 Base) MCG/ACT inhaler Inhale 2 (two) puffs by mouth every 6 hours as needed 11/23/2023 Active ibuprofen (Motrin) 800 MG tablet Take 1 (one) tablet by mouth every 8 hours 09/19/2024 Active pantoprazole EC (Protonix) 40 MG tablet Take 1 (one) tablet by mouth 2 times daily 06/16/2024 Active Active Problems Problem Noted Date Diagnosed Date Open fracture of shaft of right humerus 07/11/20 18 Fracture of right humerus 06/26/2018 Encounters Date Type Department Care Team Description 11/09/2024 9:00 AM REHEATER Office Visit [facility] - ENT [address] [place] [address] Dysfunction of both eustachian tubes (Primary Dx); Tympanic membrane retraction, right; 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; Otalgia of both ears 11/09/2024 Travel 10/19/2024 Travel from Last 3 Months Immunizations Name Administration Dates Next Due TD, HISTORIC VACCINE 05/06/2016 TDAP (7yrs+) 06/25/2018 Social History Tobacco Use [...] Sign Reading Time Taken Comments Blood Pressure 130/87 11/09/2024 8:39 AM REHEATER Pulse 77 11/09/2024 8:39 AM REHEATER Temperature 36.5 C (97.7 F) 07/15/2023 10:55 AM REHEATER Respiratory Rate 19 07/15/2023 10:55 AM REHEATER Oxygen Saturation 100% 07/15/2023 10:55 AM REHEATER Inhaled Oxygen Concentration - - Weight 130.2 kg (287 lb) 11/09/2024 8:39 AM REHEATER Height 182.9 cm (6') 11/09/2024 8:39 AM REHEATER Body Mass Index 38.92 11/09/2024 8:39 AM REHEATER Plan of Treatment Upcoming Encounters Date Type Department Care Team (Late st Contact Info) Description 12/03/2024 8:20 AM CDT Appointment [facility] CAT SCAN [address] [place] [phone] Dave Calvo MD [address] [place] [address] 12/03/2024 9:00 AM CDT Office Visit [facility] - Neurology [address] [place] [phone] Deana Milton, BUS AND TROLLEY DISPATCHER-JIG WORKER [address] [place] [address] [place] [phone] 12/03/2024 10:30 AM CDT Office Visit [facility] - ENT [address] [place] [phone] Kristian Arguello MD [address] [place] [address] [place] [address] Health Maintenance Due Date Last Done Comments HIV SCREENING 2007 HEPATITIS C SCREENING 08/03/2010 HEPATITIS B VACCINE (1 of 3 - 19+ 3-dose series) 2011 COVID-19 VACCINE (2023-2 5 season) 2024 INFLUENZA VACCINE (#1) 2024 DEPRESSION SCREENING 09/05/2024 DTAP/TDAP/TD VACCINES (3 - T d or Tdap) 06/25/2028 06/25/2018, 05/06/2016 ZOSTER VACCINE (1 of 2) 2042 HIB VACCINE Aged Out No longer eligi ble based on patient's age to complete this topic HPV VACCINE Aged Out No longer eligi ble based on patient's age to complete this topic MENINGOCOCCAL (Group B) VACCINE SHARED DECISION-MAKING Aged Out No longer eligible based on patient's age to complete this topic MENINGOCOCCAL GROUPS A/C/Y/W VACCINE Aged Out No longer eligible b ased on patient's age to complete this topic PNEUMOCOCCAL VACCINE Aged Out No long er eligible based on patient's age to complete this topic Procedures Procedure Name Priority Date/Time Associated Diagnosis Comments FL NASAL ENDOSCOPY,DX Routine 11/09/2024 10:01 AM REHEATER Dysfunction of both eustachian tubes Tympanic membrane retraction, right Otalgia of both ears from Last 3 Months Results * FL NASAL ENDOSCOPY,DX (11/09/2024 10:01 AM REHEATER) Narrative Kristian Hancock MD - 11/09/2024 10:01 AM REHEATER Kristian Hancock MD 11/09/2024 3:57 PM Procedure: Rigid Nasal Endoscopy Anesthesia: Bilateral nasal cavities sprayed with lidocaine and neosynephrine Detail: Rigid nasal endoscopy was performed bilaterally. The septum was deviated with large left bony spur. The bilateral nasal cavity showed boggy edema. There was also notable edema in the region of the torus tubarius worse on the right side. No lesions or masses appreciated. The patient tolerated the procedure well. The attending was present for and actively participated in all critical portions of the procedure. Dave Calvo MD PROCEDURE/MINOR SURG ICAL ORDERABLES from Last 3 Months Care Teams Vice President Of Human Resources Relationship Specialty Start Date End Date Ray Payan MD [address] [place] [phone] PCP - General Family Medicine 10/19/24
--- OUTSIDE RECORDS SUMMARY | 2024-11-15 17:33 | XMS_ITS | Clinical Summary ---
Author Organization [facility] Address [address] [place] [address] Care Team Providers Care Intake Nurse Name Role Phone Ray Payan MD Primary Care Provider [phone] Allergies No known active allergies Medications meclizine [...] Department Care Team Description 10/09/2024 3:00 PM SPECIAL NEEDS BABYSITTER Office Visit [facility] Pulmonology [address] [facility] [address] [place] [phone] Gasper Still MD Dyspnea on exertion (Primary Dx); Chest pain, unspecified type 10/02/2024 Telephone [facility] Primary Care at [address] [phone] Ethan Randolph MD from Last [...] on file Legal Sex Male 10:09 PM SPECIAL NEEDS BABYSITTER Gender Identity Not on file Sexual Orientation Not on file Obstetrics History Last Filed Vital Signs Vital Sign Reading Time Taken Comments Blood Pressure 112/79 10/09/2024 3:00 PM SPECIAL NEEDS BABYSITTER Pulse 78 10/09/2024 3:00 PM SPECIAL NEEDS BABYSITTER Temperature 36.4 C (97.5 F) 10/09/2024 3:00 PM SPECIAL NEEDS BABYSITTER Respiratory Rate 18 10/09/2024 3:00 PM SPECIAL NEEDS BABYSITTER Oxygen Saturation 97% 10/09/2024 3:00 PM SPECIAL NEEDS BABYSITTER Inhaled Oxygen Concentration - - Weight 127 kg (280 lb) 10/09/2024 3:00 PM SPECIAL NEEDS BABYSITTER Height 182.9 cm (6' 0.01 ) 10/09/2024 3:00 PM CS T Body Mass Index 37.97 10/09/2024 3:00 PM SPECIAL NEEDS BABYSITTER Plan of Treatment Health Maintenance Due Date [...] patient's age to complete this topic Insurance [facility] Care Teams Intake Nurse Relationship Specialty Start Date End Date Ray Payan MD [address] [place] [phone] PCP - General Emergency Medicine 09/29/23
--- OUTSIDE RECORDS SUMMARY | 2024-11-15 17:33 | XMS_ITS | Referral Summary ---
Author Organization [facility] Address [address] [facility] [place] [address] Care Team Providers Care Guest Relations Manager Name Role Phone Ray Payan MD Primary Care Provider [phone] Source Comments [facility],non-owned Affiliates and Associated Physician Practices is amultiple site organization consisting of ambulatory clinics and hospital sitesin [place], [place], [place] and [place]. This disclosure is being madepursuant to the Care Everywhere program and may not contain all information available regarding this patient. 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; Otalgia of both ears 10/19/2024 Travel from Last 3 Months Allergies [...] 06/26/2018 Immunizations Name Administration Dates Next Due TD, [...] Comments Blood Pressure 130/87 11/09/2024 8:39 AM FIELD TALENT QUALIFICATION SPECIALIST Pulse 77 11/09/2024 8:39 AM FIELD TALENT QUALIFICATION SPECIALIST Temperature 36.5 C (97.7 F) 07/15/2023 10:55 AM FIELD TALENT QUALIFICATION SPECIALIST Respiratory Rate 19 07/15/2023 10:55 AM FIELD TALENT QUALIFICATION SPECIALIST Oxygen Saturation 100% 07/15/2023 10:55 AM FIELD TALENT QUALIFICATION SPECIALIST Inhaled Oxygen Concentration - - Weight 130.2 kg (287 lb) 11/09/2024 8:39 AM FIELD TALENT QUALIFICATION SPECIALIST Height 182.9 cm (6') 11/09/2024 8:39 AM FIELD TALENT QUALIFICATION SPECIALIST Body Mass Index 38.92 11/09/2024 8:39 AM FIELD TALENT QUALIFICATION SPECIALIST Plan of Treatment Upcoming Encounters Date Type Department Care Team (Late st Contact Info) Description 12/03/2024 8:20 AM CDT Appointment [facility] CAT SCAN [address] [place] [phone] Dave Calvo MD [address] [place] [address] 12/03/2024 9:00 AM CDT [facility] [address] [place] [phone] Deana Milton, VENDOR SPECIALIST-CHART CLERK [address] [place] [address] [address] [place] [phone] 12/03/2024 10:30 AM CDT Office Visit [facility] - ENT [address] [place] [phone] Kristian Arguello MD [address] [place] [address] [address] [place] [address] Procedures Procedure Name Priority Date/Time Associated Diagnosis Comments MD NASAL ENDOSCOPY,DX Routine 11/09/2024 10:01 AM FIELD TALENT QUALIFICATION SPECIALIST Dysfunction of both eustachian tubes Tympanic membrane retraction, right Otalgia of both ears from Last 3 Months Results * MD NASAL ENDOSCOPY,DX (11/09/2024 10:01 AM FIELD TALENT QUALIFICATION SPECIALIST) Narrative Kristian Hancock MD - 11/09/2024 10:01 AM FIELD TALENT QUALIFICATION SPECIALIST Kristian Hancock MD 11/09/2024 3:57 PM Procedure: [...] ORDERABLES from Last 3 Months Care Teams Guest Relations Manager Relationship Specialty Start Date End Date Ray Payan MD [facility] [address] [place] [address] PCP - General Family Medicine 10/19/24
--- OUTSIDE RECORDS SUMMARY | 2024-11-15 17:33 | XMS_ITS ---
Author Organization [facility] Address [address] [place] [address] Care Team Providers Care Tile Burner Name Role Phone Yojana Verma Primary Care Provider REASON FOR VISIT Needs call back from office Medications Medication SIG (Take, Route, Fr equency, Duration) Notes Start Date End Date Status Zoloft 50 MG 1 tablet Orally Once a day for 30 days 06/22/2023 Active Omeprazole 20 MG 1 capsule 30 minutes before morning meal Orally Once a day Active Social History Sex Assigned At : Social History Observation Description Sex Assigned At Male Encounters Encounter Location Date Provider Diagnosis [address] [phone] 06/21/2023 Yojana Verma DARIEL (generalized anxiety disorder) [...] Notes * Etienne BEAULIEUOB:1990 (32 yo M)Acc No.[id number]:06/21/2023 Patient: Miracle joshiNitin hunt :1990 A ge:32 Y S ex:Male Address:[facility] [place] [address] * Refills Start Zoloft Tablet, 50 MG, Orally, 30, 1 tablet, Once a day, 30 days, Refills=1 Stop FLUoxetine HCl Capsule, 20 MG, Orally, 1 capsule, Once a day * true * Date: Generated for Kamini hernandez/Fátima/Dannaitting on: 0 11/15/2024 05:33 PM CDT
--- OUTSIDE RECORDS SUMMARY | 2024-11-15 17:33 | XMS_ITS | CONTINUITY OF CARE DOCUMENT ---
Author Name lulútony lulútony Address Unknown Organization [facility] Address [address] [place] [address] Phone [phone] Care Team Providers Care Agricultural Mechanic Name Role Phone Leann DUNHAM, Flavia Roldan Unavailable [phone] FUNMI CHAUHAN MD Unavailable [phone] FUNMI CHAUHAN MD Unavailable [phone] PROBLEMS Condition Status Date Provider Notes Vitamin D deficiency active Tre Fulton B12 deficiency active Tre Suarez MD nml iron Screening active Tre Suarez MD neg chol d Body mass index (BMI) 39.0-39.9, adult active Flavia Noriega MD Cardiology examination active Flavia gallego MD HTN essential active Flavia Noriega MD Anxiety disorder generalized active Flavia Noriega MD [place]O active Flaiva Noriega MD Fatigue active Danika Lewis NP Cardiovascular Condition Screening active Danika Lewis NP Snoring active Yadira Ventimiglia FOOD ADVISER Dizziness active Yadira Ventimiglia FOOD ADVISER Chest pain active Yadira Ventimiglia FOOD ADVISER Palpitations;NML TSH active Tre Fulton Exposure to SARS-associated coronavirus;neg igg active Tre Suarez MD GERD active Tre Suarez MD Tobacco use, quit active Tre Suarez MD FAMILY HISTORY OF HEART DISEASE active Tre Suarez MD mom, sister harleen griffith ENCOUNTERS Date Type Provider Location Encounter Diag nosis - In-person encounter Office Visit Flavia Norigea MD [facility] Cardiology examinationBody mass index (BMI) 39.0-39.9, adult - In-person encounter Office Visit Flavia Noriega MD [facility] Anxiety disorder generalizedHTN essential - In-person encounter Office Visit Flavia Noriega MD [facility] CHAPARRO - In-person encounter Office Visit Flavia Noriega MD [facility] Cardiovascular Condition ScreeningFatigue - In-person encounter Office Visit Flavia Noriega MD [facility] - In-person encounter Office Visit Flavia Noriega MD [facility] Chest painDizzinessSnoring - In-person encounter Office Visit Tre Suarez MD [facility] FAMILY HISTORY OF HEART DISEASETobacco use, quitGERDExposure to SARS-associated coronavirus;neg iggPalpitations;NML TSH VITAL SIGNS Date Observation Value Provider Body Mass Index (Ratio) 39.13 kg/m2 Connor Noriega MD weight E&M 280.6 [lb_av] Yasemin Baez height E&M 71 [in_i] Yasemin Baez blood pressure, cuff size regular Ol joana Baez blood pressure, diastolic 78 mm[Hg] Ol ivia Baez blood pressure, systolic 122 mm[Hg] Richard [...] Ja rret blood pressure, systolic 115 mm[Hg] [facility] pulse rate 84 /min [facility] oxygen saturation, oximetry 97 % [facility] respiratory rate E&M 12 /min [facility] weight E&M 205 [lb_av] John y height E&M 71 [in_i] [facility] y Body Mass Index (Ratio) 28.73 kg/m2 Connor Noriega MD blood pressure, resting No Ashl ey Titchenlisa TREE GIRDLER blood pressure, diastolic 63 mm[Hg] Li nkLogic [...] Suarez MD blood pressure, diastolic 67 mm[Hg] eRji Thompson blood pressure, systolic 115 mm[Hg] Cari [...] iron binding capacity, unsaturated 203 ug/dL [employer] 159-418 9558/07/0 3 iron binding capacity, total 280 ug/dL [employer] 415-407 0189/07/0 3 free thyroxine index 1.9 [employer] 1.2-4.9 [...] 0-149 3 cholesterol, serum 165 mg/dL [employer] 100-723 0481/07/0 3 basophil count, absolute 0.0 x10E3/uL [employer] [...] Estab. 3 platelet count 163 X10E3/UL [employer] 999-315 2261/07/0 3 red blood cell distribution width 12.5 [...] 3.5-5.2 3 sodium, serum 143 mmol/L [employer] 372-565 9072/07/0 3 urea nitrogen/creatinine ratio, serum 11 [employer] [...] lópez is a former smoker. Yadirajanay Cross [facility] social history reviewed E&M revi ewed - no changes required Yadira Ventimiglia [facility] drug use no Yadira Ventimig stephan [facility] alcohol use no Yadira Ventimig stephan [facility] smoking, year quit 2022 Deepa Will iava smoking history, tot al pack/day 1/2 PPD Deepadonal George cigarette use yes Deepa Ariel smoking status Former smoker Deepa garay drug use no Yadira Ventimig stephan [facility] alcohol use no Yadira Ventimig stephan [facility] smoking history, tot al pack/day 1/2 PPD Sarah Carrizales cigarette use yes Sarah Carrizales smoking status Current every da y smoker Yadirajanay Hadleymijimenez [facility] quit smoking, stage quit Tre rao [...] Payer name Policy type / Coverage type [place]wn[place] red libertarian [place] [employer] (2) Medicaid [id number] ADVANCE DIRECTIVES Name Date DISCUSSED - NO DECISION MADE TREATMENT PLAN Date Name Performer [id number],C, w ith no arrhythmia on ekg today. Will check labs, echo and tele monitor Flavia Noriega MD [id number],C, n uclaer stress test Findings: /05/13/23 R [...] ejection fraction is 55%. Flavia Noriega MD [id number],C,1 ppd or less T he Patient was reencouraged to stop smoking. Flavia Noriega MD [id number],C, Flavia Noriega MD [id number],C,t ry autopap Home sleep study shows an AHI of 8.1 which is consistent with a diagnosis of mild CHAPARRO. Mean oxygen saturation of 9 5%, with the lowest being 87%. Flavia Noriega MD [id number],C, h ad stress test done and had no ischemia h e did treadmill stress and did 13 mets and had 84% MPHR wiht control of bp and no st changes noted with a normal stress but had 84% MPHR so he had nuclear stress done [facility] was R otating planar images show [...] ejection fraction is 55%. Flavia Noriega MD [id number],C,h ad stress test done and had no ischemia h e did treadmill stress and did 13 mets and had 84% MPHR wiht control of bp and no st changes noted with a normal stress but had 84% MPHR so he had nuclear stress done [facility] was R otating planar images show [...] ejection fraction is 55%. Danika Lewis NP [id number],S,s brynn has dizziness w ill need to see neurologuist at [facility] or [facility] Danika Lewis NP [id number],S,a rrange for home sleep study - C [...] There is mild pulmonic regurgitation. Danika Lewis TREE GIRDLER [id number],C,n uclaer stress test Findings: 05/13/23 R otating [...] ventricular ejection fraction is 55%. Danika Lewis TREE GIRDLER [id number],C,r eports snoring at night with episodes of apnea. Will plan for home sleep study Yadira Ventimiglia [facility] [id number],C,r esumed use. Cessation encouraged Ethel Ventimiglia [facility] [id number],C,w ith no arrhythmia on ekg today. Will check labs, echo and tele monitor Yadira Cross [facility] [id number],C,W ith feeling near syncopal. EKG shows NSR no acute changes. He had echo in 2019 with nml LV and mild NJ. Would recommend follow up to r/o any valvular abnormalities of LV dysfunction. Would also plan tele to r/o arrhythmia. O rders: 9 9215 HIGH 40-54min (CPT-67267) C omplete Echo (CPT-06895) S tress Routine (CPT-01135) M onitor - Telemetry (Mobile Cardiac) (CPT-70431) S leep Study Home (CPT-81153) C arotid Duplex Bilateral (CPT-63991) T SH, free T4, total T3 (5897) Yadira Hadleymiglia [facility] [id number],C,C omes and goes occuring near daily. Pain is sharp in nature. Somewhat atypical, but given his SOB, palpitations and near syncope would recommend treadmill stress O rders: 9 9215 HIGH 40-54min (CPT-29683) C omplete Echo (CPT-54377) S tress Routine (CPT-31767) M onitor - Telemetry (Mobile Cardiac) (CPT-31648) S leep Study Home (CPT-29755) C arotid Duplex Bilateral (CPT-84768) T SH, free T4, total T3 (4439) Yadira Cross FOOD ADVISER Cardiology: w ith no arrhythmia on ekg [...] MPHR so he had nuclear stress done [facility] was R otating planar images show [...] MPHR so he had nuclear stress done [facility] was R otating planar images show [...] w ill need to see neurologuist at [facility] or [facility] Flavia Noriega MD Cardiology: t ry autopap [...] MPHR so he had nuclear stress done [facility] was R otating planar images show [...] MPHR so he had nuclear stress done [facility] was R otating planar images show [...] w ill need to see neurologuist at [facility] or [facility] Danika Lewis NP Cardiology:arrange f or home [...] plan for home sleep study Yadira Ventimiglia [facility] Cardiology:resumed use. Cessatio n encouraged Yadira Ventimiglia [facility] Cardiology:with no a rrhythmia on ekg today. Will check labs, echo and tele monitor Yadira Ventimiglia [facility] Cardiology:With feel ing near syncopal. EKG shows NSR no acute changes. He had echo in 2019 with nml LV and mild NJ. Would recommend follow up to r/o any valvular abnormalities of LV dysfunction. Would also plan tele to r/o arrhythmia. O rders: 9 15 HIGH 40-54min (CPT-35206) C omplete Echo (CPT-09668) S tress Routine (CPT-87415) M onitor - Telemetry (Mobile Cardiac) (CPT-88031) Sleep Study Home (CPT-93151) C arotid Duplex Bilateral (CPT-35005) T SH, free T4, total T3 (7342) Yadira Ventimiglia [facility] Cardiology:Comes and goes occuring near daily. Pain is sharp in nature. Somewhat atypical, but given his SOB, palpitations and near syncope would recommend treadmill stress O rders: 9 15 HIGH 40-54min (CPT-24515) C omplete Echo (CPT-31872) S tress Routine (CPT-40459) M onitor - Telemetry (Mobile Cardiac) (CPT-79575) S lee Study Home (CPT-03622) C arotid Duplex Bilateral (CPT-58146) T SH, free T4, total T3 (7444) Yadira Ventimiglia FOOD ADVISER :nml a1c and pro and lipse and [...]
--- OUTSIDE RECORDS SUMMARY | 2024-11-15 17:33 | XMS_ITS ---
Author Organization [facility] Address [address] [place] [address] Care Team Providers Care Business Intern Name Role Phone Yojana Verma Primary Care Provider REASON FOR VISIT Call Back Social History Sex Assigned At : Social History Observation Description Sex Assigned At Male Encounters Encounter Location Date Provider Diagnosis [address] [place] [address] 11/12/2024 Yojana Verma Plan Of Treatment No Information Progress Notes * Etienne BEAULIEUOB:1990 (34 yo M)Acc No.[id number]:11/12/2024 Patient: Nitin THAO :1990 A ge:34 Y S ex:Male Address:[address] [place] [address] * true * Date: Generated for Printi ng/Faxing/eTransmitting on: 0 11/15/2024 05:32 PM CDT
--- OUTSIDE RECORDS SUMMARY | 2024-11-15 17:33 | XMS_ITS | Clinical Summary ---
Author Organization [facility] [employer] [place] Address [address] [place] [id number] Care Team Providers Care Therapeutic Recreation Assistant Name Role Phone Kacey Quigley MD Primary Care Provider [phone] Allergies No known active allergies Medications amoxicillin-clav ulanate (AUGMENTIN) 875-125 mg tabletIndication s:Acute otitis media, unspecified otitis media type Take 1 Tablet by mouth every 12 hours. 20 Tablet 3 Active fluticasone propionate (FLONASE) 50 mcg/spray [place], Suspension nasal inhalerIndicatio ns:Acute otitis media, unspecified [...] this topic Insurance OPEN ACCESS Care Teams Therapeutic Recreation Assistant Relationship Specialty Start Date End Date Kacey Quigley MD [address] [place] [address] PCP - General Family Practice 12/29/22
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
--- OUTSIDE RECORDS SUMMARY | 2024-11-15 18:23 | XMS_ITS | Clinical Summary ---
Author Organization [facility] Address [address] [place] [address] Care Team Providers Care Knife Setter Name Role Phone Ray Payan MD Primary Care Provider [phone] Allergies No known active allergies Medications meclizine [...] Department Care Team Description 10/09/2024 3:00 PM CAMPAIGN MANAGEMENT SPECIALIST Office Visit [facility] Medical [facility] Pulmonology [address] [facility] [address] [place] [address] Gasper Still MD Dyspnea on exertion (Primary Dx); Chest pain, unspecified type 10/02/2024 Telephone [facility] Medical Group Primary Care at [address] [address] Ethan Randolph MD from Last [...] on file Legal Sex Male 10:09 PM CAMPAIGN MANAGEMENT SPECIALIST Gender Identity Not on file Sexual Orientation Not on file Obstetrics History Last Filed Vital Signs Vital Sign Reading Time Taken Comments Blood Pressure 112/79 10/09/2024 3:00 PM CAMPAIGN MANAGEMENT SPECIALIST Pulse 78 10/09/2024 3:00 PM CAMPAIGN MANAGEMENT SPECIALIST Temperature 36.4 C (97.5 F) 10/09/2024 3:00 PM CAMPAIGN MANAGEMENT SPECIALIST Respiratory Rate 18 10/09/2024 3:00 PM CAMPAIGN MANAGEMENT SPECIALIST Oxygen Saturation 97% 10/09/2024 3:00 PM CAMPAIGN MANAGEMENT SPECIALIST Inhaled Oxygen Concentration - - Weight 127 kg (280 lb) 10/09/2024 3:00 PM CAMPAIGN MANAGEMENT SPECIALIST Height 182.9 cm (6' 0.01 ) 10/09/2024 3:00 PM CS T Body Mass Index 37.97 10/09/2024 3:00 PM CAMPAIGN MANAGEMENT SPECIALIST Plan of Treatment Health Maintenance Due Date [...] patient's age to complete this topic Insurance [facility] Care Teams Knife Setter Relationship Specialty Start Date End Date Ray Payan MD [address] [place] [id number] PCP - General Emergency Medicine 09/29/23
--- OUTSIDE RECORDS SUMMARY | 2024-11-15 18:23 | XMS_ITS | CONTINUITY OF CARE DOCUMENT ---
Author Name jeison mchugh Address Unknown Organization [facility] Address [address] [facility] [address] [place] [address] Phone [phone] Care Team Providers Care Dairy Feed Mixing Operator Name Role Phone Leann DUNHAM, Flavia Roldan Unavailable FUNMI CHAUHAN MD Unavailable [phone] FUNMI CHAUHAN MD Unavailable [phone] PROBLEMS Condition Status Date Provider Notes Vitamin [...] active Tre Suarez MD Palpitations;NML TSH active Ter [place] Chest pain active Yadira Ventimiglia SLICE PLUG CUTTER OPERATOR Dizziness active Yadira Ventimiglia SLICE PLUG CUTTER OPERATOR Snoring active Yadira Ventimiglia SLICE PLUG CUTTER OPERATOR Cardiovascular Condition Screening active Danika Lewis WARRANTY CLERK Fatigue active Danika Lewis WARRANTY CLERK [place]AP[place]O active Flavia Noriega MD Anxiety disorder generalized active Flavia Noriega MD HTN essential active Flavia Noriega MD Cardiology examination active Flavia gallego MD Body mass index (BMI) 39.0-39.9, adult active Flavia Noriega MD ENCOUNTERS Date Type Provider Location Encounter Diag nosis - In-person encounter Office Visit Flavia Noriega MD [facility] Cardiology examinationBody mass index (BMI) 39.0-39.9, adult - In-person encounter Office Visit Flavia Noreiga MD [facility] Anxiety disorder generalizedHTN essential - In-person encounter Office Visit Flavia Noriega MD [facility] CHAPARRO - In-person encounter Office Visit Flavia Noriega MD [facility] Cardiovascular Condition ScreeningFatigue - In-person encounter Office Visit Flavia Noriega MD [facility] - In-person encounter Office Visit Flavia Noriega MD [facility] Chest painDizzinessSnoring - In-person encounter Office Visit Tre Suarez MD [facility] FAMILY HISTORY OF HEART DISEASETobacco use, [...] Ja rret blood pressure, systolic 115 mm[Hg] [facility] pulse rate 84 /min [facility] oxygen saturation, oximetry 97 % [facility] respiratory rate E&M 12 /min [facility] weight E&M 205 [lb_av] John y height E&M 71 [in_i] [facility] y Body Mass Index (Ratio) 28.73 kg/m2 Connor Noriega MD blood pressure, resting No Ashl ey Titchenlisa WARRANTY CLERK blood pressure, diastolic 63 mm[Hg] Li [facility] [...] iron binding capacity, unsaturated 203 ug/dL [facility] 325-476 1879/07/0 3 iron binding capacity, total 280 ug/dL [facility] 326-535 0592/07/0 3 free thyroxine index 1.9 [facility] 1.2-4.9 [...] 0-149 3 cholesterol, serum 165 mg/dL [facility] [phone]/07/0 3 basophil count, absolute 0.0 x10E3/uL [facility] [...] Estab. 3 platelet count 163 X10E3/UL [facility] 084-998 2804/07/0 3 red blood cell distribution width 12.5 [...] 3.5-5.2 3 sodium, serum 143 mmol/L [facility] [phone]/07/0 3 urea nitrogen/creatinine ratio, serum 11 [employer] [...] lópez is a former smoker. Yadirajanay Cross [facility] social history reviewed E&M revi ewed - no changes required Yadira Ventimiglia [facility] drug use no Yadira Ventimig stephan [facility] alcohol use no Yadira Ventimig stephan [facility] smoking, year quit 2022 Deepa Will iari smoking history, tot al pack/day 1/2 PPD Deepadonal George cigarette use yes Deepa Ariel smoking status Former smoker Deepa garay drug use no Yadira Ventimig stephan [facility] alcohol use no Yadira Ventimig stephan [facility] smoking history, tot al pack/day 1/2 PPD Sarah Carrizales cigarette use yes Sarah Carrizales smoking status Current every da y smoker Yadirajanay Hadleymijimenez [facility] quit smoking, stage quit Tre rao [...] Payer name Policy type / Coverage type [place] [employer] party ID [employer] MEDICAID (2) Medicaid [id number] ADVANCE DIRECTIVES Name Date DISCUSSED - NO DECISION MADE TREATMENT PLAN Date Name Performer [id number],C, w ith no arrhythmia on ekg today. Will check labs, echo and tele monitor Flavia Noriega MD [id number],C, n uclaer stress test Findings: /05/13/23 R [...] ejection fraction is 55%. Flavia Noriega MD [id number],C,1 ppd or less T he Patient was reencouraged to stop smoking. Flavia Noriega MD [id number],C, Flavia Noriega MD [id number],C,t ry autopap Home sleep study shows an AHI of 8.1 which is consistent with a diagnosis of mild CHAPARRO. Mean oxygen saturation of 9 5%, with the lowest being 87%. Flavia Noriega MD [id number],C, h ad stress test done and had no ischemia h e did treadmill stress and did 13 mets and had 84% MPHR wiht control of bp and no st changes noted with a normal stress but had 84% MPHR so he had nuclear stress done [facility] was R otating planar images show [...] ejection fraction is 55%. Flavia Noriega MD [id number],C,h ad stress test done and had no ischemia h e did treadmill stress and did 13 mets and had 84% MPHR wiht control of bp and no st changes noted with a normal stress but had 84% MPHR so he had nuclear stress done [facility] was R otating planar images show [...] ejection fraction is 55%. Danika Lewis NP [id number],S,s brynn has dizziness w ill need to see neurologuist at [facility] or [facility] Danika Lewis NP [id number],S,a rrange for home sleep study - C [...] There is mild pulmonic regurgitation. Danika Lewis WARRANTY CLERK [id number],C,n uclaer stress test Findings: 05/13/23 R otating [...] ventricular ejection fraction is 55%. Danika Lewis WARRANTY CLERK [id number],C,r eports snoring at night with episodes of apnea. Will plan for home sleep study Yadira Ventimiglia [facility] [id number],C,r esumed use. Cessation encouraged [place] Ventimiglia [facility] [id number],C,w ith no arrhythmia on ekg today. Will check labs, echo and tele monitor Yadira Cross [facility] [id number],C,W ith feeling near syncopal. EKG shows NSR no acute changes. He had echo in 2019 with nml LV and mild VT. Would recommend follow up to r/o any valvular abnormalities of LV dysfunction. Would also plan tele to r/o arrhythmia. O rders: 9 9215 HIGH 40-54min (CPT-42239) C omplete Echo (CPT-45702) S tress Routine (CPT-85539) M onitor - Telemetry (Mobile Cardiac) (CPT-76253) S leep Study Home (CPT-66909) C arotid Duplex Bilateral (CPT-07259) T SH, free T4, total T3 (8591) Yadira Hadleymiglia [facility] [id number],C,C omes and goes occuring near daily. Pain is sharp in nature. Somewhat atypical, but given his SOB, palpitations and near syncope would recommend treadmill stress O rders: 9 9215 HIGH 40-54min (CPT-44414) C omplete Echo (CPT-19971) S tress Routine (CPT-72818) M onitor - Telemetry (Mobile Cardiac) (CPT-92416) S leep Study Home (CPT-71673) C arotid Duplex Bilateral (CPT-98301) T SH, free T4, total T3 (1511) Yadira Cross SLICE PLUG CUTTER OPERATOR Cardiology: w ith no arrhythmia on ekg [...] MPHR so he had nuclear stress done [facility] was R otating planar images show [...] MPHR so he had nuclear stress done [facility] was R otating planar images show [...] w ill need to see neurologuist at [facility] Flavia Noriega MD Cardiology: t ry [...] MPHR so he had nuclear stress done [facility] was R otating planar images show [...] MPHR so he had nuclear stress done [facility] was R otating planar images show [...] w ill need to see neurologuist at [facility] Danika Lewis NP Cardiology:arrange f or [...] plan for home sleep study Yadira Ventimiglia [facility] Cardiology:resumed use. Cessatio n encouraged Yadira Ventimiglia [facility] Cardiology:with no a rrhythmia on ekg today. Will check labs, echo and tele monitor Yadira Ventimiglia [facility] Cardiology:With feel ing near syncopal. EKG shows NSR no acute changes. He had echo in 2019 with nml LV and mild VT. Would recommend follow up to r/o any valvular abnormalities of LV dysfunction. Would also plan tele to r/o arrhythmia. O rders: 9 15 HIGH 40-54min (CPT-23886) C omplete Echo (CPT-38122) S tress Routine (CPT-57720) M onitor - Telemetry (Mobile Cardiac) (CPT-91747) Sleep Study Home (CPT-14347) C arotid Duplex Bilateral (CPT-57834) T SH, free T4, total T3 (0554) Yadira Ventimiglia [facility] Cardiology:Comes and goes occuring near daily. Pain is sharp in nature. Somewhat atypical, but given his SOB, palpitations and near syncope would recommend treadmill stress O rders: 9 15 HIGH 40-54min (CPT-67195) C omplete Echo (CPT-98941) S tress Routine (CPT-98593) M onitor - Telemetry (Mobile Cardiac) (CPT-40444) S lee Study Home (CPT-78244) C arotid Duplex Bilateral (CPT-74572) T SH, free T4, total T3 (7444) Yadira Ventimiglia SLICE PLUG CUTTER OPERATOR :nml a1c and pro and lipse and [...]
--- OUTSIDE RECORDS SUMMARY | 2024-11-15 18:23 | XMS_ITS | Referral Summary ---
Author Organization [facility] Address [address] [place] [address] Care Team Providers Care Senior Quality Assurance Analyst Name Role Phone Ray Payan MD Primary Care Provider [phone] Encounters Date Type Department Care Team Description 10/09/2024 3:00 PM CORPORATE MANAGER Office Visit [facility] Pulmonology [address] [place] [address] [place] [phone] Gasper Still MD Dyspnea on exertion (Primary Dx); Chest pain, unspecified type 10/02/2024 Telephone [facility] Primary Care at [address] [phone] Ethan Randolph MD from Last [...] on file Legal Sex Male 10:09 PM CORPORATE MANAGER Gender Identity Not on file Sexual Orientation Not on file Last Filed Vital Signs Vital Sign Reading Time Taken Comments Blood Pressure 112/79 10/09/2024 3:00 PM CORPORATE MANAGER Pulse 78 10/09/2024 3:00 PM CORPORATE MANAGER Temperature 36.4 C (97.5 F) 10/09/2024 3:00 PM CORPORATE MANAGER Respiratory Rate 18 10/09/2024 3:00 PM CORPORATE MANAGER Oxygen Saturation 97% 10/09/2024 3:00 PM CORPORATE MANAGER Inhaled Oxygen Concentration - - Weight 127 kg (280 lb) 10/09/2024 3:00 PM CORPORATE MANAGER Height 182.9 cm (6' 0.01 ) 10/09/2024 3:00 PM CS T Body Mass Index 37.97 10/09/2024 3:00 PM CORPORATE MANAGER Plan of Treatment Not on file Insurance Care Teams Senior Quality Assurance Analyst Relationship Specialty Start Date End Date Ray Payan MD [address] [place] [address] PCP - General Emergency Medicine 09/29/23
--- OUTSIDE RECORDS SUMMARY | 2024-11-15 18:23 | XMS_ITS | Clinical Summary ---
Author Organization [facility] [employer] Address [address] [facility] [place] [address] Care Team Providers Care Medical Care Evaluation Specialist Name Role Phone Ray Payan MD Primary Care Provider [phone] [facility],non-owned Affiliates and Associated Physician Practices is amultiple site organization consisting of ambulatory clinics and hospital sitesin [place], [place], [place] and [place]. This disclosure is being madepursuant to the Care Everywhere program and may not contain all information available regarding this patient. Last updated 18.[facility] Allergies No known active allergies Medications * [...] Department Care Team Description 11/09/2024 9:00 AM GRANTS ASSISTANT Office Visit [facility] - ENT [address] [place] [address] Dysfunction of both eustachian tubes (Primary Dx); [...] Comments Blood Pressure 130/87 11/09/2024 8:39 AM GRANTS ASSISTANT Pulse 77 11/09/2024 8:39 AM GRANTS ASSISTANT Temperature 36.5 C (97.7 F) 07/15/2023 10:55 AM GRANTS ASSISTANT Respiratory Rate 19 07/15/2023 10:55 AM GRANTS ASSISTANT Oxygen Saturation 100% 07/15/2023 10:55 AM GRANTS ASSISTANT Inhaled Oxygen Concentration - - Weight 130.2 kg (287 lb) 11/09/2024 8:39 AM GRANTS ASSISTANT Height 182.9 cm (6') 11/09/2024 8:39 AM GRANTS ASSISTANT Body Mass Index 38.92 11/09/2024 8:39 AM GRANTS ASSISTANT Plan of Treatment Upcoming Encounters Date Type Department Care Team (Late st Contact Info) Description 12/03/2024 8:20 AM CDT Appointment [facility] CAT SCAN [address] [place] [phone] Dave Calvo MD [address] [place] [address] 12/03/2024 9:00 AM CDT Office Visit [facility] - Neurology [address] [place] [phone] Deana Milton, RUG HOOKER-JAVA PORTAL DEVELOPER [address] [place] [address] [place] [phone] 12/03/2024 10:30 AM CDT Office Visit [facility] - ENT [address] [place] [phone] Kristian Arguello MD [address] [place] [address] [place] [address] Health Maintenance Due Date Last Done Comments [...] Procedure Name Priority Date/Time Associated Diagnosis Comments IA NASAL ENDOSCOPY,DX Routine 11/09/2024 10:01 AM GRANTS ASSISTANT Dysfunction of both eustachian tubes Tympanic membrane retraction, right Otalgia of both ears from Last 3 Months Results * IA NASAL ENDOSCOPY,DX (11/09/2024 10:01 AM GRANTS ASSISTANT) Narrative Kristian Hancock MD - 11/09/2024 10:01 AM GRANTS ASSISTANT Kristian Hancock MD 11/09/2024 3:57 PM Procedure: [...] ORDERABLES from Last 3 Months Care Teams Medical Care Evaluation Specialist Relationship Specialty Start Date End Date Ray Payan MD [address] [place] [address] PCP - General Family Medicine 10/19/24
--- OUTSIDE RECORDS SUMMARY | 2024-11-15 18:23 | XMS_ITS | Clinical Summary ---
Author Organization [facility] [employer] [place] Address [address] [place] [phone] Care Team Providers Care Tile Mechanic Name Role Phone Kacey Quigley MD Primary Care Provider [phone] Allergies No known active allergies Medications amoxicillin-clav ulanate (AUGMENTIN) 875-125 mg tabletIndication s:Acute otitis media, unspecified otitis media type Take 1 Tablet by mouth every 12 hours. 20 Tablet 3 Active fluticasone propionate (FLONASE) 50 mcg/spray [place], Suspension nasal inhalerIndicatio ns:Acute otitis media, unspecified [...] this topic Insurance OPEN ACCESS Care Teams Tile Mechanic Relationship Specialty Start Date End Date Kacey Quigley MD [address] [place] [address] PCP - General Family Practice 12/29/22
--- OUTSIDE RECORDS SUMMARY | 2024-11-15 18:23 | XMS_ITS | Continuity of Care Document ---
Author Organization [facility] Address [address] [place] [place] [address] [place] [address] Phone Care Team Providers Care Flake Miller Helper Name Role Phone Cedirck Chin MD Unavailable Unavailable Allergies, Adverse Reactions, Alerts Substance Reaction Status Criticality ibuprofen Active No Information ketorolac Active No Information Medications Medication Instructions Dosage Effective Dates (start - stop) Status Comments Velarde 5 mg-325 mg tablet take 1 tablet [...] Diagnoses Date Provider Providers Copied on Encounter [facility], [address], [place], [place], [id number], [place] tel:[phone] [facility] No Information Giuseppe Philip. [address], [place], [place], [id number], [place]. tel:[phone] Referring Provider: Cedrick Chin, [address], [place], [place], [id number]. tel:[phone] OFFICE/OUTPAT IENT VISIT, EST [facility], [address], [place], [place], [address], [place] tel:[phone] [facility] humeral fracture1 (chief complaint) Pain in right upper arm Giuseppe Philip. [address], [address], [place], [place], [address], [place]. tel:[phone] Referring Provider: Cedrick Chin, [address], [place], [place], [id number]. tel:[phone] PREV VISIT, NEW, AGE 18-39 [facility], [address], [place], [place], [address], [place] tel:[phone] [facility] PHysical (chief complaint) Encntr for general adult medical exam w/o abnormal findings Giuseppe Philip. [address], [address], [place], [place], [address], [place]. tel:[phone] Referring Provider: [facility]edrick Chin[facility] [facility] [place], [place], [id number]. tel:[phone] Family History Family Member Type Diagnosis Age [...] Pt did follow up with ortho at [facility] last month and he was told the [...]
--- OUTSIDE RECORDS SUMMARY | 2024-11-15 18:24 | XMS_ITS | Patient Health Summary ---
Author Organization [facility] Address [address] [place] [address] Care Team Providers Care Automotive Tire Technician Name Role Phone Ray Payan MD Primary Care Provider [phone] Note from [facility],non-owned Affiliates and Associated Physician Practices is amultiple site organization consisting of ambulatory clinics and hospital sitesin [place], [place], [place] and [place]. This disclosure is being madepursuant to the Care Everywhere program and may not contain all information available regarding this patient. Last updated 18.[facility] Allergies No known active allergies Medications * [...] Comments Blood Pressure 130/87 11/09/2024 8:39 AM AMUSEMENT PARK RIDE MECHANIC Pulse 77 11/09/2024 8:39 AM AMUSEMENT PARK RIDE MECHANIC Temperature 36.5 C (97.7 F) 07/15/2023 10:55 AM AMUSEMENT PARK RIDE MECHANIC Respiratory Rate 19 07/15/2023 10:55 AM AMUSEMENT PARK RIDE MECHANIC Oxygen Saturation 100% 07/15/2023 10:55 AM AMUSEMENT PARK RIDE MECHANIC Inhaled Oxygen Concentration - - Weight 130.2 kg (287 lb) 11/09/2024 8:39 AM AMUSEMENT PARK RIDE MECHANIC Height 182.9 cm (6') 11/09/2024 8:39 AM AMUSEMENT PARK RIDE MECHANIC Body Mass Index 38.92 11/09/2024 8:39 AM AMUSEMENT PARK RIDE MECHANIC Procedures * [place] NASAL ENDOSCOPY,DX(Performed 11/09/2024) Performed for Dysfunction of [...] BLOOD(Performed 06/25/2018) * OXYGEN(Performed 06/25/2018) Results * [place] NASAL ENDOSCOPY,DX (11/09/2024 10:01 AM AMUSEMENT PARK RIDE MECHANIC) Narrative Kristian Hancock MD - 11/09/2024 10:01 AM AMUSEMENT PARK RIDE MECHANIC Kristian Hancock MD 11/09/2024 3:57 PM Procedure: [...] or More (06/22/2024 10:18 AM CDT) Narrative [facility] [address] - 06/22/2024 10:18 AM CDT Please see progress note in Epic for results. Barber Lema MD DIAGNOSTIC IMAGING O RDERABLES [facility] [address] * CT ABDOMEN PELVIS W CONTRAST (07/15/2023 3:04 PM AMUSEMENT PARK RIDE MECHANIC) Anatomical Region Laterality Modality Abdomen, Pelvis Computed Tomogra phy 07/15/2023 3:35 PM AMUSEMENT PARK RIDE MECHANIC Impressions 07/15/2023 4:26 PM AMUSEMENT PARK RIDE MECHANIC Impression: 1.No acute process identified in the abdomen or pelvis. 2.Trace free fluid in the pelvis. 3.Small umbilical hernia containing small bowel loops without obstruction. > Dictated by Hay Miller MD, MD (radiology receptionist). > Dictated by Hay Miller MD (Resident Buyer) 07/15/2023 3:35 PM Conrado Beatty have personally reviewed and interpreted this examination/study. > Interpreting Provider: Conrado Sinclair on 07/15/2023 4:26 PM Narrative 07/15/2023 4:26 PM AMUSEMENT PARK RIDE MECHANIC PROCEDURE: CT ABDOMEN PELVIS W CONTRAST DATE/TIME [...] > Dictated by Hay Miller MD, MD (radiology receptionist). > Dictated by Hay Miller MD (Resident Buyer) 07/15/2023 3:35 PM IConrado have personally reviewed and interpreted this examination/study. > Interpreting Provider: Conrado Sinclair on 07/15/2023 4:26 PM [address] Saucedo MD CT ORDERABLES * (ABNORMAL) COMPREHENSIVE METABOLIC PANEL (07/15/2023 11:51 AM AMUSEMENT PARK RIDE MECHANIC) Only the most recent of4 resultswithin the time period is included. BUN 13 7 - 26 mg/dL 07/15/2023 12:22 PM [facility] Creatinine 1.00 0.71 - 1.16 mg/dL 07/15/2023 12:22 PM [facility] Sodium 142 136 - 145 mmol/L 07/15/2023 12:22 PM [facility] Potassium 4.5 3.5 - 4.5 mmol/L 07/15/2023 12:22 PM [facility] Chloride 106 98 - 107 mmol/L 07/15/2023 12:22 PM [facility] CO2 30(H) 22 - 29 mmol/L 07/15/2023 12:22 PM [facility] Glucose 81 70 - 115 mg/dL 07/15/2023 12:22 PM [facility] Calcium 9.8 8.4 - 10.2 mg/dL 07/15/2023 12:22 PM [facility] Protein Total 7.2 6.0 - 8.3 g/dL [...] Unknown Venipuncture / Unknown 07/15/2023 11:51 AM AMUSEMENT PARK RIDE MECHANIC 07/15/2023 11:55 AM AMUSEMENT PARK RIDE MECHANIC Jake Saucedo MD LAB - CHEMISTRY ORDE [facility] Organization Address City/State/[facility] Co de Phone Number [facility] [address] [place] [id number] [phone] * LIPASE BLOOD (07/15/2023 11:51 AM AMUSEMENT PARK RIDE MECHANIC) Lipase 20 8 - 78 U/L 07/15/2023 12:22 PM [facility] Blood BLOOD SPECIMEN / Unknown Venipuncture / Unknown 07/15/2023 11:51 AM AMUSEMENT PARK RIDE MECHANIC 07/15/2023 11:55 AM AMUSEMENT PARK RIDE MECHANIC Narrative [facility] - 07/15/2023 12:22 PM AMUSEMENT PARK RIDE MECHANIC Lipase results from the Sandoval Alinity analyzer may not be comparable with other methodologies. Jake Saucedo MD LAB - CHEMISTRY [facility] [address] [place] [address], [facility] [phone] * CBC W AUTO DIFFERENTIAL (07/15/2023 11:50 AM AMUSEMENT PARK RIDE MECHANIC) Only the most recent of4 resultswithin the [...] Unknown Venipuncture / Unknown 07/15/2023 11:50 AM AMUSEMENT PARK RIDE MECHANIC 07/15/2023 11:57 AM AMUSEMENT PARK RIDE MECHANIC Jake Saucedo MD LAB - HEMATOLOGY ORD ERABLES [facility] [address] [place] [address], [facility] [phone] * CARDIAC EKG ORDER (02/18/2021 1:14 PM CDT) Narrative 02/18/2021 1:14 PM CDT Ordered by an unspecified provider. Scanned Document CARDIAC SERVICES ORD ERABLES * TROPONIN I (02/17/2021 2:59 AM CDT) Troponin I <0.010 <0.032 ng/mL 02/17/2021 3:44 AM CDT [facility] Blood BLOOD SPECIMEN / Unknown Venipuncture / Unknown 02/17/2021 2:59 AM CDT 02/17/2021 3:13 AM CDT Jake Saucedo MD LAB - CHEMISTRY [facility] [address] [place] [address], [facility] [phone] * XR CHEST 1VW PORTABLE (02/17/2021 12:59 [...] is intact. Dictated by Kaushik Bejarano MD (radiology receptionist). IDr. BERTA MD have personally reviewed and [...] is intact. Dictated by Kaushik Bejarano MD (radiology receptionist). I, . BERTA BLANKENSHIP MD have personally [...] (Bezet) 400 ms [facility] MUSE Calculated P Circle 75 degrees [facility] MUSE Calculated R Circle 57 degrees [facility] MUSE Calculated T Circle 34 degrees [facility] MUSE Interpretation EKG SINUS BRADYCARDIA OTHERWISE NORMAL ECG NO PREVIOUS ECGS AVAILABLE Confirmed by Alan Herndon ([id number]) on 02/17/2021 2:39:30 PM [facility] MUSE 02/17/2021 12:3 7 AM CDT 02/17/2021 2:39 PM CDT Jake Saucedo MD ECG ORDERABLES [facility] MUSE * XR HUMERUS RIGHT 2VW OR MORE (09/25/2019 10:28 AM AMUSEMENT PARK RIDE MECHANIC) Only the most recent of7 resultswithin the time period is included. Anatomical Region Laterality Modality Upper Extremity Radiographic Kristel ging 09/25/2019 2:04 PM AMUSEMENT PARK RIDE MECHANIC Impressions 09/25/2019 2:05 PM AMUSEMENT PARK RIDE MECHANIC IMPRESSION: Healed humeral fracture. This report was electronically signed by MEHDI BREWER MD on 09/25/2019 2:05 PM . Narrative 09/25/2019 2:05 PM AMUSEMENT PARK RIDE MECHANIC Exam: XR HUMERUS RIGHT 2VW History: Right [...] RIGHT 3VW OR MORE (07/25/2018 8:55 PM AMUSEMENT PARK RIDE MECHANIC) Anatomical Region Laterality Modality Upper Extremity Radiographic Kristel ging 07/25/2018 9:08 PM AMUSEMENT PARK RIDE MECHANIC Impressions 07/26/2018 9:47 AM AMUSEMENT PARK RIDE MECHANIC IMPRESSION: No acute osseous injury of the elbow. Soft tissue swelling around elbow/forearm. Dictated by Abram St MD (radiology receptionist). I, Dr. MAGUE ARNOLD M.D. have personally reviewed and interpreted this examination/study. This report was electronically signed by MAGUE ARNOLD M.D. on 07/26/2018 9:47 AM . Narrative 07/26/2018 9:47 AM AMUSEMENT PARK RIDE MECHANIC EXAMINATION: XR ELBOW RIGHT 3VW OR MORE [...] around elbow/forearm. Dictated by Abram St MD (radiology receptionist). Dr. MAGUE Beatty M.D. have personally reviewed and interpreted this examination/study. This report was electronically signed by MAGUE ARNOLD M.D. on07/26/2018 9:47 AM . Rosemary Ramey PA-C DIAGNOSTIC I MAGING ORDERABLES * XR FOREARM RIGHT 2VW (07/25/2018 8:55 PM AMUSEMENT PARK RIDE MECHANIC) Anatomical Region Laterality Modality Upper Extremity Radiographic Kristel ging 07/25/2018 9:02 PM AMUSEMENT PARK RIDE MECHANIC Impressions 07/26/2018 9:45 AM AMUSEMENT PARK RIDE MECHANIC IMPRESSION: No acute osseous abnormality. Soft tissue swelling. Dictated by Abram St MD (radiology receptionist). Dr. MAGUE Beatty M.D. have personally reviewed and interpreted this examination/study. This report was electronically signed by MAGUE ARNOLD M.D. on 07/26/2018 9:45 AM . Narrative 07/26/2018 9:45 AM AMUSEMENT PARK RIDE MECHANIC EXAMINATION: XR FOREARM RIGHT 2VW HISTORY: pain, [...] tissue swelling. Dictated by Abram St MD (radiology receptionist). I, Dr. MAGUE STOLAR, M.D. have personally reviewed and interpreted this examination/study. This report was electronically signed by MAGUE ARNOLD M.D. on07/26/2018 9:45 AM . Rosemary Ramey PA-C DIAGNOSTIC I MAGING ORDERABLES * (ABNORMAL) C-REACTIVE PROTEIN (07/25/2018 7:40 PM AMUSEMENT PARK RIDE MECHANIC) C-Reactive Protein 1.1(H) <=0.5 mg/dL 07/25/2018 8:06 PM AMUSEMENT PARK RIDE MECHANIC [facility] Blood BLOOD SPECIMEN / Unknown Venipuncture / Unknown 07/25/2018 7:40 PM AMUSEMENT PARK RIDE MECHANIC 07/25/2018 7:45 PM AMUSEMENT PARK RIDE MECHANIC Rosemary Ramey PA-C LAB - CHEMIS TRY ORDERABLES Performing Organization Address City/[facility]/ZIP Co de Phone Number [facility] [address] [place] [address], [facility] [phone] * CULTURE BLOOD (07/25/2018 7:40 PM AMUSEMENT PARK RIDE MECHANIC) Only the most recent of2 resultswithin the time period is included. Culture No growth day 5 DAVID 07/30/2018 11:31 PM AMUSEMENT PARK RIDE MECHANIC [facility] MICROBIOLOGY Blood PERIPHERAL BLOOD / Unknown Venipuncture / Unknown 07/25/2018 7:40 PM AMUSEMENT PARK RIDE MECHANIC 07/25/2018 7:45 PM AMUSEMENT PARK RIDE MECHANIC Rosemary Ramey PA-C LAB - MICROB IOLOGY ORDERABLES [facility] MICROBIOLOGY [address] [place] [address], [facility] [phone] * ERYTHROCYTE SEDIMENTATION RATE (07/25/2018 7:40 PM AMUSEMENT PARK RIDE MECHANIC) Erythrocyte Sedimentation Rate Westergren 10 0 - 15 MM/HR 07/25/2018 8:05 PM AMUSEMENT PARK RIDE MECHANIC [facility] Blood BLOOD SPECIMEN / Unknown Venipuncture / Unknown 07/25/2018 7:40 PM AMUSEMENT PARK RIDE MECHANIC 07/25/2018 7:45 PM AMUSEMENT PARK RIDE MECHANIC Rosemary Ramey PA-C LAB - HEMATO LOGY ORDERABLES [address] [phone] * CT HEAD WO CONTRAST (06/27/2018 8:38 [...] midline shift. This report was approved by Critsina Chin on 06/28/2018 8:49 AM . I, Dr. NANCY KING have personally reviewed and interpreted this examination/study. This report was electronically signed by NANCY KING on 06/28/2018 9:28 AM . Ophelia Jamar Brink PA-Cecil CT ORDERABLES * (ABNORMAL) DRUG SCREEN TOX URINE PANEL (06/26/2018 1:24 AM CDT) [facility] Amphetamines Screen Urine Negative Negative : < 1000 ng/mL 06/26/2018 1:58 AM [facility] Barbiturates Screen Urine Negative Negative : < 200 ng/mL 06/26/2018 1:58 AM [facility] Benzodiazepine Screen Urine Negative Negative : < 200 ng/mL 06/26/2018 1:58 AM [facility] Opiates Urine Positive(A) Negative : < 300 ng/mL 06/26/2018 1:58 AM [facility] Comment: Positive urine opiate screening results should be confirmed by another generally accepted non-immunological method such as gas chromatography or mass spectrometry. Cocaine Metabolites Urine Negative Negative : < 300 ng/mL 06/26/2018 1:58 AM [facility] Phencyclidine Screen Urine Negative Negative : < 25 ng/ml 06/26/2018 1:58 AM [facility] Cannabinoids Screen Urine Positive(A) Negative : <50 ng/mL 06/26/2018 1:58 AM [facility] Comment: Positive urine cannabinoids (THC) screening results should be confirmed by another generally accepted non-immunological method such as gas chromatography or mass spectrometry. Methadone Screen Urine Negative Negative : < 300 ng/mL 06/26/2018 1:58 AM [facility] Urine URINE / Unknown Collection / Unknown 06/26/2018 1:24 AM CDT 06/26/2018 1:31 AM [facility] - 06/26/2018 1:58 AM CDT The Urine Toxicology Screening Panel does not screen for Propoxyphene, Meprobamate, Carisoprodol, Trazodone, kirm-etu-pxjarlv medications and/or volatiles (Acetone, Isopropanol, Methanol or Ethylene Glycol). Ethanol, Salicylate, Acetaminophen, Tricyclic Antidepressants and several therapeutic drugs may be individually assayed in serum or plasma specimen. Toxicology testing by the [facility] is an aid to medical diagnosis and treatment of patients. No documented chain of custody was maintained. Results are intended to be used for clinical purposes only. Clay Wheeler DO LAB - URINE CHEMISTR Y ORDERABLES Performing Organization Address City/[facility]/ZIP Co de Phone Number [facility] [address] [place] [address] * TYPE + SCREEN PANEL (06/26/2018 12:42 AM CDT) Antibody Screen NEG 8 1:49 AM CDT [facility] ABO Rh A NEG 06/26/2018 1:49 AM CDT [facility] Blood Bank BLOOD SPECIMEN / Unknown Venipuncture / Unknown 06/26/2018 12:42 AM CDT 06/26/2018 12:50 AM CDT Clay Wheeler DO LAB - BLOOD BANK ORD ERABLES Performing Organization Address City/[facility] Co de Phone Number [facility] [address] [place] [address] * RETYPE PATIENT (06/26/2018 12:30 AM CDT) ABO 06/26/2018 2:00 AM CDT [facility] Rh Type 06/26/2018 2:00 AM CDT [facility] Typem 06/26/2018 2:00 AM CDT [facility] Interpretation 06/26/2018 2:00 AM CDT [facility] Blood BLOOD SPECIMEN / Unknown Lab Venipuncture / Unknown 06/26/2018 12:30 AM CDT 06/26/2018 12:51 AM CDT Narrative [facility] - 06/26/2018 2:00 AM CDT Re-type confirmed per [facility] Blood Bank policies & procedures. Results documented in department. Penny Oconnell MD LAB - BLOOD BANK ORD ERABLES [facility] [address] [place] [address], [facility] * CT ANGIO CHEST (06/26/2018 12:13 [...] phase study. Dictated by Román Guevara MD (radiology receptionist). I, Dr. SHAHLA CRAVEN M.D. have personally [...] phase study. Dictated by Román Guevara MD (radiology receptionist). Dr. SHAHLA Beatty M.D. have personally reviewed [...] upper hemithorax. Dictated by Uzair Estrada MD (radiology receptionist). Dr. ALIREZA Beatty have personally reviewed and [...] upper hemithorax. Dictated by Uzair Estrada MD (radiology receptionist). Dr. ALIREZA Beatty have personally reviewed and interpreted this examination/study. This report was electronically signed by ALIREZA WILIKNS on 06/26/2018 9:25 AM . Clay Wheeler DO DIAGNOSTIC IMAGING O RDERABLES * PT-INR [facility] (06/25/2018 11:42 PM CDT) PT 12.7 12.1 - 14.8 Seconds 06/25/2018 11:57 PM CDT [facility] INR 1.0 See Comment 06/25/2018 11:57 PM CDT [facility] Comment: The suggested therapeutic range for standard coumadin (warfarin) therapy is an INR of 2.0-3.0. For high-risk patients (Mechanical Mitral Valve Prosthesis, etc.), the suggested prophylactic therapeutic range is an INR of 2.5-3.5. Blood BLOOD SPECIMEN / Unknown Venipuncture / Unknown 06/25/2018 11:42 PM CDT 06/25/2018 11:46 PM CDT Clay Wheeler DO LAB - COAGULATION OR DERABLES Performing Organization Address City/[facility]/ZIP Co de Phone Number [address] [phone] * ALCOHOL ETHYL BLOOD (06/25/2018 11:42 PM CDT) Interpretation Ethanol None Detected None Detected mg/dL 06/26/2018 12:07 AM T [facility] Comment: Ethanol levels less than 10 mg/dL are resulted as None detected . Blood BLOOD SPECIMEN / Unknown Venipuncture / Unknown 06/25/2018 11:42 PM CDT 06/25/2018 11:46 PM CDT Clay Wheeler DO LAB - CHEMISTRY ORDE RABLES [address] [phone] Care Teams Automotive Tire Technician Relationship Specialty Start Date End Date Ray Payan MD [address] [place] [id number] PCP - General Family Medicine 10/19/24
--- OUTSIDE RECORDS SUMMARY | 2024-11-15 18:24 | XMS_ITS | Referral Summary ---
Author Organization [facility] Address [address] [facility] [place] [address] Care Team Providers Care Lining Cutter Name Role Phone Ray Payan MD Primary Care Provider [phone] Source Comments [facility],non-owned Affiliates and Associated Physician Practices is amultiple site organization consisting of ambulatory clinics and hospital sitesin [place], [place], [place] and [place]. This disclosure is being madepursuant to the Care Everywhere program and may not contain all information available regarding this patient. Last updated 18.[facility] Encounters Date Type Department Care Team Description 11/09/2024 Travel 11/09/2024 9:00 AM SCIENTIFIC HELPER Office Visit [facility] - ENT [address] [place] [phone] Dysfunction of both eustachian tubes (Primary Dx); [...] Comments Blood Pressure 130/87 11/09/2024 8:39 AM SCIENTIFIC HELPER Pulse 77 11/09/2024 8:39 AM SCIENTIFIC HELPER Temperature 36.5 C (97.7 F) 07/15/2023 10:55 AM SCIENTIFIC HELPER Respiratory Rate 19 07/15/2023 10:55 AM SCIENTIFIC HELPER Oxygen Saturation 100% 07/15/2023 10:55 AM SCIENTIFIC HELPER Inhaled Oxygen Concentration - - Weight 130.2 kg (287 lb) 11/09/2024 8:39 AM SCIENTIFIC HELPER Height 182.9 cm (6') 11/09/2024 8:39 AM SCIENTIFIC HELPER Body Mass Index 38.92 11/09/2024 8:39 AM SCIENTIFIC HELPER Plan of Treatment Upcoming Encounters Date Type Department Care Team (Late st Contact Info) Description 12/03/2024 8:20 AM CDT Appointment [facility] CAT SCAN [address] [place] [phone] Dave Calvo MD [address] [place] [id number] 12/03/2024 9:00 AM CDT [facility] - Neurology [address] [place] [address] [phone] Deana Milton, MANAGER SEMICONDUCTOR-PARTS SALES MANAGER [address] [place] [address] [address] [place] [phone] 12/03/2024 10:30 AM CDT Office Visit [facility] - ENT [address] [place] [phone] Kristian Arguello MD [address] [place] [address] 2[address] [place] [address] Procedures Procedure Name Priority Date/Time Associated Diagnosis Comments [place] NASAL ENDOSCOPY,DX Routine 11/09/2024 10:01 AM SCIENTIFIC HELPER Dysfunction of both eustachian tubes Tympanic membrane retraction, right Otalgia of both ears from Last 3 Months Results * [place] NASAL ENDOSCOPY,DX (11/09/2024 10:01 AM SCIENTIFIC HELPER) Narrative Kristian Hancock MD - 11/09/2024 10:01 AM SCIENTIFIC HELPER Kristian Hancock MD 11/09/2024 3:57 PM Procedure: [...] ORDERABLES from Last 3 Months Care Teams Lining Cutter Relationship Specialty Start Date End Date Ray Payan MD [facility] [address] [facility] [address] [place] [address] PCP - General Family Medicine 10/19/24
== END 2024-11-15 17:05 | disposition left against medical advice (07) ==
LOC: ANHED 18:22
PROVIDERS: PCP Emergency Medicine
DX: R10.13 Epigastric pain (principal)
CPT/HCPCS: 99199

== ENCOUNTER 2024-11-17 16:08 | Emergency (ER) | payer OTHER, SELFPAY ==
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
--- OUTSIDE RECORDS SUMMARY | 2024-11-17 16:11 | XMS_ITS | CONTINUITY OF CARE DOCUMENT ---
Author Name jeison mchugh Address Unknown Organization [facility] Address [address] [place] [address] Phone [phone] Care Team Providers Care Tourist Cabin Keeper Name Role Phone Leann DUNHAM, Flavia Roldan Unavailable FUNMI CHAUHAN MD Unavailable [phone] FUNMI CHAUHAN MD Unavailable [phone] PROBLEMS Condition Status Date Provider Notes Vitamin [...] Tre [place] Chest pain active Yadira Ventimiglia LINING STUFFER Dizziness active Yadira Ventimiglia LINING STUFFER Snoring active Yadira Ventimiglia LINING STUFFER Cardiovascular Condition Screening active Danika Lewis LAYUP WORKER Fatigue active Danika Lewis LAYUP WORKER [place] active Flavia Noriega MD Anxiety disorder generalized active Flavia Noriega MD HTN essential active Flavia Noriega MD Cardiology examination active Flavia gallego MD Body mass index (BMI) 39.0-39.9, adult active Flavia Noriega MD ENCOUNTERS Date Type Provider Location Encounter Diag nosis - In-person encounter Office Visit Flavia Noriega MD [facility] Cardiology examinationBody mass index (BMI) 39.0-39.9, adult - In-person encounter Office Visit Flavia Noriega MD [facility] Anxiety disorder generalizedHTN essential - In-person encounter Office Visit Flavia Noriega MD [facility] [place]O - In-person encounter Office Visit Flavia Noriega MD [facility] Cardiovascular Condition ScreeningFatigue - In-person encounter Office Visit Flavia Noriega MD [facility] - In-person encounter Office Visit Flavia Noriega MD [facility] Chest painDizzinessSnoring - In-person encounter Office Visit Tre Suarez MD [facility] FAMILY HISTORY OF HEART DISEASETobacco use, [...] Ja rret blood pressure, systolic 115 mm[Hg] [facility] pulse rate 84 /min [facility] oxygen saturation, oximetry 97 % [facility] respiratory rate E&M 12 /min [facility] weight E&M 205 [lb_av] John y height E&M 71 [in_i] [facility] y Body Mass Index (Ratio) 28.73 kg/m2 Connor Noriega MD blood pressure, resting No Ashl ey Titchenlisa LAYUP WORKER blood pressure, diastolic 63 mm[Hg] Li [facility] [...] iron binding capacity, unsaturated 203 ug/dL [facility] [phone]/07/0 3 iron binding capacity, total 280 ug/dL [facility] [phone]/07/0 3 free thyroxine index 1.9 [facility] 1.2-4.9 [...] 0-149 3 cholesterol, serum 165 mg/dL [facility] [phone]/07/0 3 basophil count, absolute 0.0 x10E3/uL [facility] [...] Estab. 3 platelet count 163 X10E3/UL [facility] [phone]/07/0 3 red blood cell distribution width 12.5 [...] 3.5-5.2 3 sodium, serum 143 mmol/L [facility] [phone]/07/0 3 urea nitrogen/creatinine ratio, serum 11 [facility] [...] lópez is a former smoker. Yadirajanay Cross [facility] social history reviewed E&M revi ewed - no changes required Yadira Ventimiglia [facility] drug use no Yadira Ventimig stephan [facility] alcohol use no Yadira Ventimig stephan [facility] smoking, year quit 2022 Deepa Will iamo smoking history, tot al pack/day 1/2 PPD Deepadonal George cigarette use yes Deepa Ariel smoking status Former smoker Deepa garay drug use no Yadira Ventimig stephan [facility] alcohol use no Yadira Ventimig stephan [facility] smoking history, tot al pack/day 1/2 PPD Sarah Carrizales cigarette use yes Sarah Carrizales smoking status Current every da y smoker Yadirajanay Hadleymijimenez [facility] quit smoking, stage quit Tre rao [...] Payer name Policy type / Coverage type [employer] MEDICA[employer] (2) Medicaid [id number] ADVANCE DIRECTIVES Name Date DISCUSSED - NO DECISION MADE TREATMENT PLAN Date Name Performer [id number],C, w ith no arrhythmia on ekg today. Will check labs, echo and tele monitor Flavia Noriega MD [id number],C, n uclaer stress test Findings: /05/13/23 R [...] ejection fraction is 55%. Flavia Noriega MD [id number],C,1 ppd or less T he Patient was reencouraged to stop smoking. Flavia Noriega MD [id number],C, Flavia Noriega MD [id number],C,t ry autopap Home sleep study shows an AHI of 8.1 which is consistent with a diagnosis of mild CHAPARRO. Mean oxygen saturation of 9 5%, with the lowest being 87%. Flavia Noriega MD [id number],C, h ad stress test done and had no ischemia h e did treadmill stress and did 13 mets and had 84% MPHR wiht control of bp and no st changes noted with a normal stress but had 84% MPHR so he had nuclear stress done [facility] was R otating planar images [...] ejection fraction is 55%. Flavia Noriega MD [id number],C,h ad stress test done and had no ischemia h e did treadmill stress and did 13 mets and had 84% MPHR wiht control of bp and no st changes noted with a normal stress but had 84% MPHR so he had nuclear stress done [facility] was R otating planar images [...] ejection fraction is 55%. Danika Lewis NP [id number],S,s brynn has dizziness w ill need to see neurologuist at [facility] or [facility] Danika Lewis NP [id number],S,a rrange for home sleep study - C [...] There is mild pulmonic regurgitation. Danika Lewis LAYUP WORKER [id number],C,n uclaer stress test Findings: 05/13/23 R otating [...] ventricular ejection fraction is 55%. Danika Lewis LAYUP WORKER [id number],C,r eports snoring at night with episodes of apnea. Will plan for home sleep study Yadira Ventimiglia [facility] [id number],C,r esumed use. Cessation encouraged Norco Ventimiglia [facility] [id number],C,w ith no arrhythmia on ekg today. Will check labs, echo and tele monitor Yadira Cross [facility] [id number],C,W ith feeling near syncopal. EKG shows NSR no acute changes. He had echo in 2019 with nml LV and mild AZ. Would recommend follow up to r/o any valvular abnormalities of LV dysfunction. Would also plan tele to r/o arrhythmia. O rders: 9 9215 HIGH 40-54min (CPT-74954) C omplete Echo (CPT-77306) S tress Routine (CPT-54418) M onitor - Telemetry ([place] [facility]) (CPT-38359) S leep Study Home (CPT-11498) C arotid Duplex Bilateral (CPT-34215) T SH, free T4, total T3 (7918) Yadira Hadleymiglia [facility] [id number],C,C omes and goes occuring near daily. Pain is sharp in nature. Somewhat atypical, but given his SOB, palpitations and near syncope would recommend treadmill stress O rders: 9 9215 HIGH 40-54min (CPT-19070) C omplete Echo (CPT-75791) S tress Routine (CPT-66132) M onitor - Telemetry ([place] Card[facility]) (CPT-17409) S leep Study Home (CPT-90442) C arotid Duplex Bilateral (CPT-38899) T SH, free T4, total T3 (6801) Yadira Cross LINING STUFFER Cardiology: w ith no arrhythmia on ekg [...] MPHR so he had nuclear stress done [facility] was R otating planar images [...] MPHR so he had nuclear stress done [facility] was R otating planar images [...] w ill need to see neurologuist at [facility] or [facility] Flavia Noriega MD Cardiology: t ry autopap [...] MPHR so he had nuclear stress done [facility] was R otating planar images [...] MPHR so he had nuclear stress done [facility] was R otating planar images [...] w ill need to see neurologuist at [facility] or [facility] Danika Lewis NP Cardiology:arrange f or home [...] plan for home sleep study Yadira Ventimiglia [facility] Cardiology:resumed use. Cessatio n encouraged Yadira Ventimiglia [facility] Cardiology:with no a rrhythmia on ekg today. Will check labs, echo and tele monitor Yadira Ventimiglia [facility] Cardiology:With feel ing near syncopal. EKG shows NSR no acute changes. He had echo in 2019 with nml LV and mild AZ. Would recommend follow up to r/o any valvular abnormalities of LV dysfunction. Would also plan tele to r/o arrhythmia. O rders: 9 15 HIGH 40-54min (CPT-75721) C omplete Echo (CPT-67419) S tress Routine (CPT-43883) M onitor - Telemetry ([place] [facility]) (CPT-01431) Sleep Study Home (CPT-39877) C arotid Duplex Bilateral (CPT-56864) T SH, free T4, total T3 (2181) Yadira Ventimiglia [facility] Cardiology:Comes and goes occuring near daily. Pain is sharp in nature. Somewhat atypical, but given his SOB, palpitations and near syncope would recommend treadmill stress O rders: 9 15 HIGH 40-54min (CPT-49147) C omplete Echo (CPT-84005) S tress Routine (CPT-35792) M onitor - Telemetry ([place] [facility]) (CPT-69433) S lee Study Home (CPT-13404) C arotid Duplex Bilateral (CPT-40389) T SH, free T4, total T3 (7444) Yadira Ventimiglia LINING STUFFER :nml a1c and pro and lipse and amypse and crp and abd us Tre Suarez MD Tre Suarez MD :nml lipase and amlyadse Tre Saurez MD :nml a1c adn pro, lipase and [...]
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
--- OUTSIDE RECORDS SUMMARY | 2024-11-17 16:11 | XMS_ITS | Clinical Summary ---
Author Organization [facility] Address [address] [place] [address] Care Team Providers Care Transportation Planning Technician Name Role Phone Ray Payan MD Primary Care Provider [phone] Allergies No known active allergies Medications meclizine [...] Department Care Team Description 10/09/2024 3:00 PM FUR TRIMMER Office Visit [facility] Pulmonology [address] [place] [phone] Gasper Still MD Dyspnea on exertion (Primary Dx); Chest pain, unspecified type 10/02/2024 Telephone [facility] Primary Care at [address] [address] Ethan Randolph MD from Last [...] on file Legal Sex Male 10:09 PM FUR TRIMMER Gender Identity Not on file Sexual Orientation Not on file Obstetrics History Last Filed Vital Signs Vital Sign Reading Time Taken Comments Blood Pressure 112/79 10/09/2024 3:00 PM FUR TRIMMER Pulse 78 10/09/2024 3:00 PM FUR TRIMMER Temperature 36.4 C (97.5 F) 10/09/2024 3:00 PM FUR TRIMMER Respiratory Rate 18 10/09/2024 3:00 PM FUR TRIMMER Oxygen Saturation 97% 10/09/2024 3:00 PM FUR TRIMMER Inhaled Oxygen Concentration - - Weight 127 kg (280 lb) 10/09/2024 3:00 PM FUR TRIMMER Height 182.9 cm (6' 0.01 ) 10/09/2024 3:00 PM CS T Body Mass Index 37.97 10/09/2024 3:00 PM FUR TRIMMER Plan of Treatment Health Maintenance Due Date [...] patient's age to complete this topic Insurance [facility] Care Teams Transportation Planning Technician Relationship Specialty Start Date End Date Ray Payan MD [address] [place] [id number] PCP - General Emergency Medicine 09/29/23
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
--- OUTSIDE RECORDS SUMMARY | 2024-11-17 16:11 | XMS_ITS ---
Author Organization [facility] Address [address] [place] [address] Care Team Providers Care Paper Processing Machine Helper Name Role Phone Yojana Vemra Primary Care Provider REASON FOR VISIT Call Back Social History Sex Assigned At : Social History Observation Description Sex Assigned At Male Encounters Encounter Location Date Provider Diagnosis [address] [place] [address] 11/12/2024 Yojaan Verma Plan Of Treatment No Information Progress Notes * Etienne BEAULIEUOB:1990 (34 yo M)Acc No.[id number]:11/12/2024 Patient: Nitin THAO :1990 A ge:34 Y S ex:Male Address:[address] [place] [address] * true * Date: Generated for Printi ng/Faxing/eTransmitting on: 0 11/17/2024 04:11 PM CDT
--- OUTSIDE RECORDS SUMMARY | 2024-11-17 16:11 | XMS_ITS | Data Portability ---
Author Organization [facility], Main Office Address [address] [place] [address] Assessment Encounter Date Assessment Date Assessment LastModified [...] e 1 % topical cream 2023 024 [facility] #[id number], [address] , [place], [address], 10/04/2023 16:16:25 Diflucan 200 mg tablet 2023 024 [facility] #[id number], [address], [place], [address], 10/04/2023 16:16:25 Patient TargetsNo targets recorded. Patient Instructions Encounter Date Encounter Id Patient Instructions Last Modified By Organization Details Last Modified Time 10/04/2023 [id number] Soaking instructions, qd in warm, soapy water. Dispensed 4 x4 gauze for dressings and Silvadene. [email or web address] Not available 10/04/2023 16:16:21 10/18/2023 [id number] pt given soaking instructions and gauze for soaks. [email or web address] Not available 10/18/2023 14:50:39 Reason for Referral None Reported. 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 Procedures Surgical History Date Name Laterality Status Provider Name and Address Organization Details Recorded Time 5 Partial Nail [employer] Chemical Matrixectomy- Right completed Zohaib Denny DPM [address], [place] [address], [place], [address], [employer] 10/10/2024 09:15:52 4 Partial Nail [employer] Chemical Matrixectomy- Left completed Zohaib Denny DPM [address], [place] [address], [place], [address], [employer] 10/18/2023 14:46:28 Imaging Results None recorded. Procedure [...] mm[Hg] JOSE ARMANDO Quinn [place] [employer] [facility] 4 15:10:04 Date Recorded Body height Provider Name an d Address Organization Details Last Updated DateTime 10/18/2023 182.88 cm JOSE ARMANDO Quinn [facility] [employer] [facility] 10/18/2023 11:56:11 Date Recorded Body height Oxygen saturation Oxygen saturation in Arterial blood by Pulse oximetry Body temperature Heart rate Body mass index (BMI) Body weight Provider Name and Address Organization Details Last Updated DateTime 182.88 cm 97 % 97 % 98.2 [degF] 88 /min 0.3 kg/m2 907.18 g JOSE ARMANDO Quinn [facility] [employer] [facility] 12:27:05 Social History Question Answer Notes LastModified by Organizat ion Details LastModified Time Tobacco Smoking Status Former Smoker JOSE ARMANDO Quinn [facility] [employer] [facility] 10/04/2023 15:02:44 What Is Your Level Of Alcohol Consumption? Occasional [email or web address] Information not available 10/04/2023 What Is Your Level Of Caffeine Consumption? Occasional [email or web address] Information not available 10/04/2023 What Was The Date Of Your Most Recent Tobacco Screening? 10/09/2024 Information not available 10/09/2024 Has Tobacco Cessation Counseling Been Provided? No Information not available 10/04/2023 Do You Or Have You Ever Used Any Other Forms Of Tobacco Or Nicotine? No [email or web address] Information not available 10/04/2023 Sex: Unknown Functional Status None recorded. Mental Status None recorded. Family History Nothing Reported. Medical History No medical history recorded. Past Encounters Encounter ID Performer Location Encounter Start Date Encounter Closed Date Diagnosis/Indication Diagnosis SNOMED-CT Code Diagnosis ICD10 Code Diagnosis Note [id number] NABILA Mitchell_JESUSG Podiatry [facility] [address] [facility] [place] [address] 10/04/2023 14:41:21 04/07/2024 04:04:32 Paronychia of toe of right foot 2809972110 4246485 L03.031 Onychomyco sis of toenails 441378088 B35.1 [id number] NABILA MitchellG Podiatry [facility] [address] [facility] [address] [place] [address] 10/18/2023 11:28:35 10/18/2023 16:33:13 Paronychia of toe of left foot 1997081316 9925261 L03.032 both borders hallux [id number] Zohaib Denny DPM [facility] [address] [facility] [address] [place] [address] 10/09/2024 12:13:26 10/10/2024 14:04:27 Health Concerns Section Related Observation LastModified by Organization Detai ls LastModified Time None Recorded Concern Status LastModified by Organization Details LastModified Time None Recorded Advance Directives Directive None Recorded Payers Encounter Date Sequence Insurance Name Policy Number Policy Amin Covered Member ID Amin Member ID Guarantor Name 10/04/2023 2 [facility] ON OR AFTER 03/05/21 (MEDICAID REPLACEMENT - HMO) Nitin Perez [id number] Nitin Perez 10/18/2023 2 [facility] ON OR AFTER 03/05/21 (MEDICAID REPLACEMENT - HMO) iNtin Perez [id number] Nitin Perez 10/09/2024 [facility] ON OR AFTER 03/05/21 (MEDICAID REPLACEMENT - HMO) 000 Nitin Perez [id number] Nitin Perez 10/09/2024 1 [facility] ON OR AFTER 03/05/21 (MEDICAID REPLACEMENT - HMO) Nitin Perez [id number] Nitin Perez Notes Date Note Type Note [...] the great toenails. Zohaib Denny DPM [address] [facility], [facility] [[email or web address] [address], [place], [address], [employer] 10/04/2023 16:16:29 10/18/2023 text/html Well healed Rt great toenail. No erythema, purulence. Pt may d/c local wound care and soaks. Zohaib Denny DPM [address], [facility] [[email or web address] [address], [place], [address], [employer] 10/18/2023 14:50:47 10/09/2024 text/html Pt RTC for c/o painful ingrown toenail Rt inside border; red and inflamed, very painful. Zohaib Denny DPM [address], [facility] [[email or web address] [address], [place], [address], [employer] 10/10/2024 09:15:59
--- OUTSIDE RECORDS SUMMARY | 2024-11-17 16:11 | XMS_ITS | Referral Summary ---
Author Organization [facility] Address [address] [place] [address] Care Team Providers Care Slip Presser Name Role Phone Ray Payan MD Primary Care Provider [phone] Encounters Date Type Department Care Team Description 10/09/2024 3:00 PM DIRECTOR OF CASEWORK SERVICES Office Visit [facility] Pulmonology [address] [place] [address] [place] [address] Gasper Still MD Dyspnea on exertion (Primary Dx); Chest pain, unspecified type 10/02/2024 Telephone [facility] Primary Care at [address] [address] Ethan Randolph MD from Last [...] on file Legal Sex Male 10:09 PM DIRECTOR OF CASEWORK SERVICES Gender Identity Not on file Sexual Orientation Not on file Last Filed Vital Signs Vital Sign Reading Time Taken Comments Blood Pressure 112/79 10/09/2024 3:00 PM DIRECTOR OF CASEWORK SERVICES Pulse 78 10/09/2024 3:00 PM DIRECTOR OF CASEWORK SERVICES Temperature 36.4 C (97.5 F) 10/09/2024 3:00 PM DIRECTOR OF CASEWORK SERVICES Respiratory Rate 18 10/09/2024 3:00 PM DIRECTOR OF CASEWORK SERVICES Oxygen Saturation 97% 10/09/2024 3:00 PM DIRECTOR OF CASEWORK SERVICES Inhaled Oxygen Concentration - - Weight 127 kg (280 lb) 10/09/2024 3:00 PM DIRECTOR OF CASEWORK SERVICES Height 182.9 cm (6' 0.01 ) 10/09/2024 3:00 PM CS T Body Mass Index 37.97 10/09/2024 3:00 PM DIRECTOR OF CASEWORK SERVICES Plan of Treatment Not on file Insurance Care Teams Slip Presser Relationship Specialty Start Date End Date Ray Payan MD [address] [place] [id number] PCP - General Emergency Medicine 09/29/23
--- OUTSIDE RECORDS SUMMARY | 2024-11-17 16:11 | XMS_ITS | Clinical Summary ---
Author Organization [facility] [employer] [facility] Address [address] [place] [address] Care Team Providers Care Breaker Operator Name Role Phone Kacey Quigley MD Primary Care Provider [phone] Allergies No known active allergies Medications amoxicillin-clav ulanate (AUGMENTIN) 875-125 mg tabletIndication s:Acute otitis media, unspecified otitis media type Take 1 Tablet by mouth every 12 hours. 20 Tablet 3 Active fluticasone propionate (FLONASE) 50 mcg/spray [place], Suspension nasal inhalerIndicatio ns:Acute otitis media, unspecified [...] this topic Insurance OPEN ACCESS Care Teams Breaker Operator Relationship Specialty Start Date End Date Kacey Quigley MD [address] [place] [address] PCP - General Family Practice 12/29/22
--- NOTE | 2024-11-17 16:12 | ECG_ITS ---
Test Date: 2024-11-17 16:17:49 Measurements Intervals [place] Rate: 77 P: 34 CT: 150 QRS: 29 QRSD: 85 T: 37 QT: 355 QTc: 404 Interpretive Statements SINUS RHYTHM Electronically Signed On 11-18-2024 13:58:55 CDT by Chad Miner D.O
--- OUTSIDE RECORDS SUMMARY | 2024-11-17 16:12 | XMS_ITS ---
Author Organization [facility] Address [address] [place] [address] Care Team Providers Care Quality Systems Manager Name Role Phone Yojana Verma Primary Care Provider [phone] REASON FOR VISIT last seen 06/2024 Social History Sex Assigned At : Social History Observation Description Sex Assigned At Male Encounters Encounter Location Date Provider Diagnosis [address] [address] 11/16/2024 Yojana Verma Plan Of Treatment No Information Progress Notes * Ish BEAULIEUinDOB:1990 (34 yo M)Acc No.[id number]:11/16/2024 UNLOCKED PROGRESS NOTE Patient: Nitin THAO Provider: Kwan Verma DNP, RAKESH-BC, RUBBER ROLLER GRINDER :1990 A ge:34 Y S ex:Male Date:11/16/2024 [facility] [facility] Subjective: * Chief Complaints: * 1 . Last seen 06/2024. * Medical History: Objective: * Vitals: Assessment: Plan: * Treatment: * * Electronic signature of Kellen Verma on 11/17/2024 at 04:11 PM CDT Sign off status: Pending * Provider: Kwan Verma DNP, RAKESH-BC, RUBBER ROLLER GRINDER Date: 0 11/16/2024 Generated for Printing/Faxing/eTransmitting on: 0 11/17/2024 04:11 PM CDT
--- OUTSIDE RECORDS SUMMARY | 2024-11-17 16:12 | XMS_ITS | Patient Health Summary ---
Author Organization [facility] Address [address] [facility] [place] [address] Care Team Providers Care Apple Peeler Operator Name Role Phone Ray Payan MD Primary Care Provider [phone] Note from [facility] [place]note 2],non-owned Affiliates and Associated Physician Practices is amultiple site organization consisting of ambulatory clinics and hospital sitesin [place], [place], [place] and [place]. This disclosure is being madepursuant to the Care Everywhere program and may not contain all information available regarding this patient. Last updated 18.[facility] Allergies No known active allergies Medications [...] Comments Blood Pressure 130/87 11/09/2024 8:39 AM WEB UI DESIGNER Pulse 77 11/09/2024 8:39 AM WEB UI DESIGNER Temperature 36.5 C (97.7 F) 07/15/2023 10:55 AM WEB UI DESIGNER Respiratory Rate 19 07/15/2023 10:55 AM WEB UI DESIGNER Oxygen Saturation 100% 07/15/2023 10:55 AM WEB UI DESIGNER Inhaled Oxygen Concentration - - Weight 130.2 kg (287 lb) 11/09/2024 8:39 AM WEB UI DESIGNER Height 182.9 cm (6') 11/09/2024 8:39 AM WEB UI DESIGNER Body Mass Index 38.92 11/09/2024 8:39 AM WEB UI DESIGNER Procedures * IN NASAL ENDOSCOPY,DX(Performed 11/09/2024) Performed for Dysfunction of [...] BLOOD(Performed 06/25/2018) * OXYGEN(Performed 06/25/2018) Results * IN NASAL ENDOSCOPY,DX (11/09/2024 10:01 AM WEB UI DESIGNER) Narrative Kristian Hancock MD - 11/09/2024 10:01 AM WEB UI DESIGNER Kristian Hancock MD 11/09/2024 3:57 PM Procedure: [...] in all critical portions of the procedure. Dvae Calvo MD PROCEDURE/MINOR SURG ICAL ORDERABLES * XR Shoulder Right 2Vw or More (06/22/2024 10:18 AM CDT) Narrative [facility] [address] - 06/22/2024 10:18 AM CDT Please see progress note in Epic for results. Barber Leam MD DIAGNOSTIC IMAGING O RDERABLES [facility] [address] * CT ABDOMEN PELVIS W CONTRAST (07/15/2023 3:04 PM WEB UI DESIGNER) Anatomical Region Laterality Modality Abdomen, Pelvis Computed Tomogra phy 07/15/2023 3:35 PM WEB UI DESIGNER Impressions 07/15/2023 4:26 PM WEB UI DESIGNER Impression: 1.No acute process identified in the abdomen or pelvis. 2.Trace free fluid in the pelvis. 3.Small umbilical hernia containing small bowel loops without obstruction. > Dictated by Hay Miller MD, MD (resident program specialist). > Dictated by Hay Miller MD (Tree Marker) 07/15/2023 3:35 PM Conrado Beatty have personally reviewed and interpreted this examination/study. > Interpreting Provider: Conrado Sinclair on 07/15/2023 4:26 PM Narrative 07/15/2023 4:26 PM WEB UI DESIGNER PROCEDURE: CT ABDOMEN PELVIS W CONTRAST DATE/TIME [...] Dictated by Hay Miller MD, MD (resident program specialist). > Dictated by Hay Miller MD (Tree Marker) 07/15/2023 3:35 PM IConrado have personally reviewed and interpreted this examination/study. > Interpreting Provider: Conrado Sinclair on 07/15/2023 4:26 PM Jake Saucedo MD CT ORDERABLES * (ABNORMAL) COMPREHENSIVE METABOLIC PANEL (07/15/2023 11:51 AM WEB UI DESIGNER) Only the most recent of4 resultswithin the time period is included. BUN 13 7 - 26 mg/dL 07/15/2023 12:22 PM [facility] Creatinine 1.00 0.71 - 1.16 mg/dL 07/15/2023 12:22 PM [facility] Sodium 142 136 - 145 mmol/L 07/15/2023 12:22 PM [facility] Potassium 4.5 3.5 - 4.5 mmol/L 07/15/2023 12:22 PM [facility] Chloride 106 98 - 107 mmol/L 07/15/2023 12:22 PM [facility] CO2 30(H) 22 - 29 mmol/L 07/15/2023 12:22 PM [facility] Glucose 81 70 - 115 mg/dL 07/15/2023 12:22 PM [facility] Calcium 9.8 8.4 - 10.2 mg/dL 07/15/2023 12:22 PM [facility] Protein Total 7.2 6.0 - 8.3 g/dL 07/15/2023 12:22 PM [facility] Albumin 4.1 3.4 - 5.0 g/dL 07/15/2023 12:22 PM [facility] Bilirubin Total 0.3 0.2 - 1.2 mg/dL 07/15/2023 12:22 PM [facility] Alkaline Phosphatase 53 40 - 150 U/L 07/15/2023 12:22 PM [facility] ALT 47 5 - 55 U/L 07/15/2023 12:22 PM [facility] AST 31 5 - 34 U/L 07/15/2023 12:22 PM [facility] Anion Gap 6 6 - 16 07/15/2023 12:22 PM [facility] BUN/Creatinine Ratio 13 7 - 23 07/15/2023 12:22 PM [facility] Osmolality Calculated 293 275 - 295 mOsm/kg 07/15/2023 12:22 PM [facility] Albumin/Globulin Ratio 1.3 1.1 - 2.3 07/15/2023 12:22 PM [facility] eGFR by CKD-EPI >90 >=90 mL/min/1.7 3 m2 07/15/2023 12:22 PM [facility] Blood BLOOD SPECIMEN / Unknown Venipuncture / Unknown 07/15/2023 11:51 AM WEB UI DESIGNER 07/15/2023 11:55 AM WEB UI DESIGNER Jake Saucedo MD LAB - CHEMISTRY ORDE [facility] Organization Address City/State/[facility] Co de Phone Number [facility] [address] [place] [phone] [phone] * LIPASE BLOOD (07/15/2023 11:51 AM WEB UI DESIGNER) Lipase 20 8 - 78 U/L 07/15/2023 12:22 PM [facility] Blood BLOOD SPECIMEN / Unknown Venipuncture / Unknown 07/15/2023 11:51 AM WEB UI DESIGNER 07/15/2023 11:55 AM WEB UI DESIGNER Narrative [facility] - 07/15/2023 12:22 PM WEB UI DESIGNER Lipase results from the Sandoval Alinity analyzer may not be comparable with other methodologies. Jake Saucedo MD LAB - CHEMISTRY [facility] [address] [place] [address], [facility] [phone] * CBC W AUTO DIFFERENTIAL (07/15/2023 11:50 AM WEB UI DESIGNER) Only the most recent of4 resultswithin the time period is included. WBC 7.7 3.5 - 10.5 10 3/uL 07/15/2023 12:04 PM [facility] RBC 5.05 4.30 - 5.70 10 6/uL 07/15/2023 12:04 PM [facility] Hemoglobin 14.9 12.0 - 17.6 g/dL 07/15/2023 12:04 PM [facility] Hematocrit 44.2 35.2 - 51.7 % 07/15/2023 12:04 PM [facility] MCV 87.5 80.7 - 98.3 fL 07/15/2023 12:04 PM [facility] MCH 29.5 26.7 - 34.0 pg 07/15/2023 12:04 PM [facility] MCHC 33.7 30.8 - 35.9 g/dL 07/15/2023 12:04 PM [facility] RDW-SD 40.6 36.0 - 50.0 fL 07/15/2023 12:04 PM [facility] RDW-CV 12.7 11.2 - 14.8 % 07/15/2023 12:04 PM [facility] Platelet Count 179 150 - 400 10 3/uL 07/15/2023 12:04 PM [facility] MPV 9.5 9.4 - 12.9 fL 07/15/2023 12:04 PM [facility] nRBC Absolute 0.00 0 10 3/uL 07/15/2023 12:04 PM [facility] nRBC Auto 0.0 0 /100 WBC 07/15/2023 12:04 PM [facility] Neutrophils % 51.6 35.0 - 70.0 % 07/15/2023 12:04 PM [facility] Lymphocytes % 35.0 20.0 - 43.0 % 07/15/2023 12:04 PM [facility] Monocytes % 7.0 5.0 - 13.0 % 07/15/2023 12:04 PM [facility] Eosinophils % 5.4 0.0 - 6.0 % 07/15/2023 12:04 PM [facility] Basophil % 0.6 0.0 - 2.0 % 07/15/2023 12:04 PM [facility] Neutrophils Absolute 3.97 1.60 - 7.00 10 3/uL 07/15/2023 12:04 PM [facility] Lymphocyte Absolute 2.70 1.10 - 3.90 10 3/uL 07/15/2023 12:04 PM [facility] Monocytes Absolute 0.54 0.26 - 1.07 10 3/uL 07/15/2023 12:04 PM [facility] Eosinophils Absolute 0.42 0.00 - 0.47 10 3/uL 07/15/2023 12:04 PM [facility] Basophils Absolute 0.05 0.00 - 0.08 10 3/uL 07/15/2023 12:04 PM [facility] Immature Granulocytes % 0.4 0.0 - 1.0 % 07/15/2023 12:04 PM [facility] Immature Granulocytes Absolute 0.03 07/15/2023 12:04 PM [facility] Blood BLOOD SPECIMEN / Unknown Venipuncture / Unknown 07/15/2023 11:50 AM WEB UI DESIGNER 07/15/2023 11:57 AM WEB UI DESIGNER Jake Saucedo MD LAB - HEMATOLOGY ORD ERABLES [facility] [address] [place] [address], [facility] [phone] * CARDIAC EKG ORDER (02/18/2021 1:14 PM CDT) Narrative 02/18/2021 1:14 PM CDT Ordered by an unspecified provider. Scanned Document CARDIAC SERVICES ORD ERABLES * TROPONIN I (02/17/2021 2:59 AM CDT) Troponin I <0.010 <0.032 ng/mL 02/17/2021 3:44 AM CDT [facility] Blood BLOOD SPECIMEN / Unknown Venipuncture / Unknown 02/17/2021 2:59 AM CDT 02/17/2021 3:13 AM CDT Jake Saucedo MD LAB - CHEMISTRY [facility] [address] [place] [address], [facility] [phone] * XR CHEST 1VW PORTABLE (02/17/2021 12:59 [...] intact. Dictated by Kaushik Bejarano MD (resident program specialist). IDr. BERTA MD have personally reviewed and [...] intact. Dictated by Kaushik Bejarano MD (resident program specialist). I, . BERTA BLANKENSHIP MD have personally [...] (Bezet) 400 ms [facility] MUSE Calculated P [place] 75 degrees [facility] MUSE Calculated R [place] 57 degrees [facility] MUSE Calculated T [place] 34 degrees [facility] MUSE Interpretation EKG SINUS BRADYCARDIA OTHERWISE NORMAL ECG NO PREVIOUS ECGS AVAILABLE Confirmed by Alan Herndon ([id number]) on 02/17/2021 2:39:30 PM [facility] M[facility] 02/17/2021 12:3 7 AM CDT 02/17/2021 2:39 PM CDT Jake Saucedo MD ECG ORDERABLES [facility] * XR HUMERUS RIGHT 2VW OR MORE (09/25/2019 10:28 AM WEB UI DESIGNER) Only the most recent of7 resultswithin the time period is included. Anatomical Region Laterality Modality Upper Extremity Radiographic Kristel ging 09/25/2019 2:04 PM WEB UI DESIGNER Impressions 09/25/2019 2:05 PM WEB UI DESIGNER IMPRESSION: Healed humeral fracture. This report was electronically signed by MEHDI BREWER MD on 09/25/2019 2:05 PM . Narrative 09/25/2019 2:05 PM WEB UI DESIGNER Exam: XR HUMERUS RIGHT 2VW History: Right [...] RIGHT 3VW OR MORE (07/25/2018 8:55 PM WEB UI DESIGNER) Anatomical Region Laterality Modality Upper Extremity Radiographic Kristel ging 07/25/2018 9:08 PM WEB UI DESIGNER Impressions 07/26/2018 9:47 AM WEB UI DESIGNER IMPRESSION: No acute osseous injury of the elbow. Soft tissue swelling around elbow/forearm. Dictated by Abram St MD (resident program specialist). I, Dr. MAGUE ARNOLD M.D. have personally reviewed and interpreted this examination/study. This report was electronically signed by MAGUE ARNOLD M.D. on 07/26/2018 9:47 AM . Narrative 07/26/2018 9:47 AM WEB UI DESIGNER EXAMINATION: XR ELBOW RIGHT 3VW OR MORE [...] elbow/forearm. Dictated by Abram St MD (resident program specialist). Dr. MAGUE Beatty M.D. have personally reviewed and interpreted this examination/study. This report was electronically signed by MAGUE ARNOLD M.D. on07/26/2018 9:47 AM . Rosemary Ramey PA-C DIAGNOSTIC I MAGING ORDERABLES * XR FOREARM RIGHT 2VW (07/25/2018 8:55 PM WEB UI DESIGNER) Anatomical Region Laterality Modality Upper Extremity Radiographic Kristel ging 07/25/2018 9:02 PM WEB UI DESIGNER Impressions 07/26/2018 9:45 AM WEB UI DESIGNER IMPRESSION: No acute osseous abnormality. Soft tissue swelling. Dictated by Abram St MD (resident program specialist). Dr. MAGUE Beatty M.D. have personally reviewed and interpreted this examination/study. This report was electronically signed by MAGUE ARNOLD M.D. on 07/26/2018 9:45 AM . Narrative 07/26/2018 9:45 AM WEB UI DESIGNER EXAMINATION: XR FOREARM RIGHT 2VW HISTORY: pain, [...] swelling. Dictated by Abram St MD (resident program specialist). I, Dr. MAGUE STOLAR, M.D. have personally reviewed and interpreted this examination/study. This report was electronically signed by MAGUE ARNOLD M.D. on07/26/2018 9:45 AM . Rosemary Ramey PA-C DIAGNOSTIC I MAGING ORDERABLES * (ABNORMAL) C-REACTIVE PROTEIN (07/25/2018 7:40 PM WEB UI DESIGNER) C-Reactive Protein 1.1(H) <=0.5 mg/dL 07/25/2018 8:06 PM WEB UI DESIGNER [facility] Blood BLOOD SPECIMEN / Unknown Venipuncture / Unknown 07/25/2018 7:40 PM WEB UI DESIGNER 07/25/2018 7:45 PM WEB UI DESIGNER Rosemary Ramey PA-C LAB - CHEMIS TRY ORDERABLES Performing Organization Address City/[facility]/ZIP Co de Phone Number [facility] [address] [place] [address], [facility] [phone] * CULTURE BLOOD (07/25/2018 7:40 PM WEB UI DESIGNER) Only the most recent of2 resultswithin the time period is included. Culture No growth day 5 DAVID 07/30/2018 11:31 PM WEB UI DESIGNER [facility] MICROBIOLOGY Blood PERIPHERAL BLOOD / Unknown Venipuncture / Unknown 07/25/2018 7:40 PM WEB UI DESIGNER 07/25/2018 7:45 PM WEB UI DESIGNER Rosemary Ramey PA-C LAB - MICROB IOLOGY ORDERABLES [facility] MICROBIOLOGY [address] [place] [address], [facility] [phone] * ERYTHROCYTE SEDIMENTATION RATE (07/25/2018 7:40 PM WEB UI DESIGNER) Erythrocyte Sedimentation Rate Westergren 10 0 - 15 MM/HR 07/25/2018 8:05 PM WEB UI DESIGNER [facility] Blood BLOOD SPECIMEN / Unknown Venipuncture / Unknown 07/25/2018 7:40 PM WEB UI DESIGNER 07/25/2018 7:45 PM WEB UI DESIGNER Rosemary Ramey PA-C LAB - HEMATO LOGY ORDERABLES [address] [phone] * CT HEAD WO CONTRAST (06/27/2018 8:38 [...] TOX URINE PANEL (06/26/2018 1:24 AM CDT) [facility] Amphetamines Screen Urine Negative Negative : < 1000 ng/mL 06/26/2018 1:[address] [facility] Barbiturates Screen Urine Negative Negative : < 200 ng/mL 06/26/2018 1:[address] [facility] Benzodiazepine Screen Urine Negative Negative : < 200 ng/mL 06/26/2018 1:[address] [facility] Opiates Urine Positive(A) Negative : < 300 ng/mL 06/26/2018 1:[address] [facility] Comment: Positive urine opiate screening results should be confirmed by another generally accepted non-immunological method such as gas chromatography or mass spectrometry. Cocaine Metabolites Urine Negative Negative : < 300 ng/mL 06/26/2018 1:[address] [facility] Phencyclidine Screen Urine Negative Negative : < 25 ng/ml 06/26/2018 1:[address] [facility] Cannabinoids Screen Urine Positive(A) Negative : <50 ng/mL 06/26/2018 1:[address] [facility] Comment: Positive urine cannabinoids (THC) screening results should be confirmed by another generally accepted non-immunological method such as gas chromatography or mass spectrometry. Methadone Screen Urine Negative Negative : < 300 ng/mL 06/26/2018 1:[address] [facility] Urine URINE / Unknown Collection / Unknown 06/26/2018 1:24 AM CDT 06/26/2018 1:[address] [facility] - 06/26/2018 1:58 AM CDT The Urine Toxicology Screening Panel does not screen for Propoxyphene, Meprobamate, Carisoprodol, Trazodone, amdc-xoo-imluqug medications and/or volatiles (Acetone, Isopropanol, Methanol or Ethylene Glycol). Ethanol, Salicylate, Acetaminophen, Tricyclic Antidepressants and several therapeutic drugs may be individually assayed in serum or plasma specimen. Toxicology testing by the [facility] is an aid to medical diagnosis and treatment of patients. No documented chain of custody was maintained. Results are intended to be used for clinical purposes only. Clay Wheeelr DO LAB - URINE CHEMISTR Y ORDERABLES Performing Organization Address City/[facility]/ZIP Co de Phone Number [facility] [address] [place] [address] * TYPE + SCREEN PANEL (06/26/2018 12:42 AM CDT) Antibody Screen NEG 8 1:49 AM CDT [facility] ABO Rh A NEG 06/26/2018 1:49 AM CDT [facility] Blood Bank BLOOD SPECIMEN / Unknown Venipuncture / Unknown 06/26/2018 12:42 AM CDT 06/26/2018 12:50 AM CDT Clay Wheeler DO LAB - BLOOD BANK ORD ERABLES Performing Organization Address City/[facility] Co de Phone Number [facility] [address] [place] [address] * RETYPE PATIENT (06/26/2018 12:30 AM CDT) ABO 06/26/2018 2:00 AM CDT [facility] Rh Type 06/26/2018 2:00 AM CDT [facility] Typem 06/26/2018 2:00 AM CDT [facility] Interpretation 06/26/2018 2:00 AM CDT [facility] Blood BLOOD SPECIMEN / Unknown Lab Venipuncture / Unknown 06/26/2018 12:30 AM CDT 06/26/2018 12:51 AM CDT Narrative [facility] - 06/26/2018 2:00 AM CDT Re-type confirmed per [facility] Blood Bank policies & procedures. Results documented in department. Penny Oconnell MD LAB - BLOOD BANK ORD ERABLES [facility] [address] [place] [address], [facility] * CT ANGIO CHEST (06/26/2018 12:13 AM [...] study. Dictated by Román Guevara MD (resident program specialist). I, Dr. SHAHLA CRAVEN M.D. have personally [...] study. Dictated by Román Guevara MD (resident program specialist). Dr. SHAHLA Beatty M.D. have personally reviewed [...] hemithorax. Dictated by Uzair Estrada MD (resident program specialist). Dr. ALIREZA Beatty have personally reviewed and [...] hemithorax. Dictated by Uzair Estrada MD (resident program specialist). Dr. ALIREZA Beatty have personally reviewed and interpreted this examination/study. This report was electronically signed by ALIREZA WILKINS on 06/26/2018 9:25 AM . Clay Wheeler DO DIAGNOSTIC IMAGING O RDERABLES * PT-INR [facility] (06/25/2018 11:42 PM CDT) PT 12.7 12.1 - 14.8 Seconds 06/25/2018 11:57 PM CDT [facility] INR 1.0 See Comment 06/25/2018 11:57 PM CDT [facility] [...] - COAGULATION OR DERABLES Performing Organization Address City/[facility]/ZIP Co de Phone Number [address] [phone] * ALCOHOL ETHYL BLOOD (06/25/2018 11:42 PM CDT) Interpretation Ethanol None Detected None Detected mg/dL 06/26/2018 12:07 AM T [facility] Comment: Ethanol levels less than 10 mg/dL are resulted as None detected . Blood BLOOD SPECIMEN / Unknown Venipuncture / Unknown 06/25/2018 11:42 PM CDT 06/25/2018 11:46 PM CDT Clay Wheeler DO LAB - CHEMISTRY ORDE RABLES [address] [phone] Care Teams Apple Peeler Operator Relationship Specialty Start Date End Date aRy Payan MD [address] [place] [address] PCP - General Family Medicine 10/19/24
--- OUTSIDE RECORDS SUMMARY | 2024-11-17 16:12 | XMS_ITS | Referral Summary ---
Author Organization [facility] Address [address] [facility] [place] [address] Care Team Providers Care Jitterbug Operator Name Role Phone Ray Payan MD Primary Care Provider [phone] Source Comments [facility] [employer],non-owned Affiliates and Associated Physician Practices is amultiple site organization consisting of ambulatory clinics and hospital sitesin [place], [place], [place] and [place]. This disclosure is being madepursuant to the Care Everywhere program and may not contain all information available regarding this patient. Last updated 18.[facility] [employer] Encounters Date Type Department Care Team Description 11/09/2024 Travel 11/09/2024 9:00 AM HOME HELP AIDE Office Visit [facility] - ENT [address] [place] [phone] Dysfunction of both eustachian tubes (Primary Dx); [...] Comments Blood Pressure 130/87 11/09/2024 8:39 AM HOME HELP AIDE Pulse 77 11/09/2024 8:39 AM HOME HELP AIDE Temperature 36.5 C (97.7 F) 07/15/2023 10:55 AM HOME HELP AIDE Respiratory Rate 19 07/15/2023 10:55 AM HOME HELP AIDE Oxygen Saturation 100% 07/15/2023 10:55 AM HOME HELP AIDE Inhaled Oxygen Concentration - - Weight 130.2 kg (287 lb) 11/09/2024 8:39 AM HOME HELP AIDE Height 182.9 cm (6') 11/09/2024 8:39 AM HOME HELP AIDE Body Mass Index 38.92 11/09/2024 8:39 AM HOME HELP AIDE Plan of Treatment Upcoming Encounters Date Type Department Care Team (Late st Contact Info) Description 12/03/2024 8:20 AM CDT Appointment [facility] SC[facility] [address] [place] [phone] Dave Calvo MD [address] [place] [phone] 12/03/2024 9:00 AM CDT [facility] [address] [place] [phone] Deana Milton, REHABILITATION THERAPY TECHNICIAN-PRINTING TABLE WORKER [address] [place] [address] [address] [place] [phone] 12/03/2024 10:30 AM CDT Office Visit [facility] - ENT [address] [place] [phone] Kristian Arguello MD [address] [place] [address] [address] [place] [address] Procedures Procedure Name Priority Date/Time Associated Diagnosis Comments [place] NASAL ENDOSCOPY,DX Routine 11/09/2024 10:01 AM HOME HELP AIDE Dysfunction of both eustachian tubes Tympanic membrane retraction, right Otalgia of both ears from Last 3 Months Results * [place] NASAL ENDOSCOPY,DX (11/09/2024 10:01 AM HOME HELP AIDE) Narrative Kristian Hancock MD - 11/09/2024 10:01 AM HOME HELP AIDE Kristian Hancock MD 11/09/2024 3:57 PM Procedure: [...] ORDERABLES from Last 3 Months Care Teams Jitterbug Operator Relationship Specialty Start Date End Date Ray Payan MD [facility] [address] [place] [address] PCP - General Family Medicine 10/19/24
--- OUTSIDE RECORDS SUMMARY | 2024-11-17 16:12 | XMS_ITS | Clinical Summary ---
Author Organization [facility] Address [address] [place] [address] Care Team Providers Care Club Room Attendant Name Role Phone Ray Payan MD Primary Care Provider Source Comments [facility],non-owned Affiliates and Associated Physician Practices is amultiple site organization consisting of ambulatory clinics and hospital sitesin [place], [place], [place] and [place]. This disclosure is being madepursuant to the Care Everywhere program and may not contain all information available regarding this patient. Last updated 18.[facility] Allergies No known active allergies Medications * [...] Department Care Team Description 11/09/2024 9:00 AM OIL RIG DRILLER Office Visit [facility] - ENT [address] [place] [address] Dysfunction of both eustachian tubes (Primary Dx); [...] Comments Blood Pressure 130/87 11/09/2024 8:39 AM OIL RIG DRILLER Pulse 77 11/09/2024 8:39 AM OIL RIG DRILLER Temperature 36.5 C (97.7 F) 07/15/2023 10:55 AM OIL RIG DRILLER Respiratory Rate 19 07/15/2023 10:55 AM OIL RIG DRILLER Oxygen Saturation 100% 07/15/2023 10:55 AM OIL RIG DRILLER Inhaled Oxygen Concentration - - Weight 130.2 kg (287 lb) 11/09/2024 8:39 AM OIL RIG DRILLER Height 182.9 cm (6') 11/09/2024 8:39 AM OIL RIG DRILLER Body Mass Index 38.92 11/09/2024 8:39 AM OIL RIG DRILLER Plan of Treatment Upcoming Encounters Date Type Department Care Team (Late st Contact Info) Description 12/03/2024 8:20 AM CDT Appointment [facility] [address] [place] [phone] Dave Calvo MD [address] [place] [address] 12/03/2024 9:00 AM CDT Office Visit [facility] - Neurology [address] [place] [phone] Deana Milton, ORGANIC EXTRACTIONS TECHNICIAN-VALET MANAGER [address] [place] [address] [place] [phone] 12/03/2024 10:30 AM CDT Office Visit [facility] - ENT [address] [place] [phone] Kristian Arguello MD [address] [place] [address] [place] [address] Health Maintenance Due Date Last Done Comments [...] Procedure Name Priority Date/Time Associated Diagnosis Comments [place] NASAL ENDOSCOPY,DX Routine 11/09/2024 10:01 AM OIL RIG DRILLER Dysfunction of both eustachian tubes Tympanic membrane retraction, right Otalgia of both ears from Last 3 Months Results * NM NASAL ENDOSCOPY,DX (11/09/2024 10:01 AM OIL RIG DRILLER) Narrative Kristian Hacnock MD - 11/09/2024 10:01 AM OIL RIG DRILLER Kristian Hancock MD 11/09/2024 3:57 PM Procedure: [...] ORDERABLES from Last 3 Months Care Teams Club Room Attendant Relationship Specialty Start Date End Date Ray Payan MD [address] [place] [id number] PCP - General Family Medicine 10/19/24
--- OUTSIDE RECORDS SUMMARY | 2024-11-17 16:12 | XMS_ITS | Continuity of Care Document ---
Author Organization [facility] Address [address] [place] [address] [place] [address] Phone Care Team Providers Care Amortization Schedule Clerk Name Role Phone Cedrick Chin MD Unavailable Unavailable Allergies, Adverse Reactions, Alerts Substance Reaction Status Criticality ibuprofen Active No Information ketorolac Active No Information Medications Medication Instructions Dosage Effective Dates (start - stop) Status Comments [place]wood 5 mg-325 mg tablet take 1 tablet [...] Diagnoses Date Provider Providers Copied on Encounter [facility], [address], [place], [place], [id number], [place] tel:[phone] [facility] No Information Giuseppe Philip. [address], [place], [place], [id number], [place]. tel:[phone] Referring Provider: Cedrick Chin, [address], [place], [place], [id number]. tel:[phone] OFFICE/OUTPAT IENT VISIT, EST [facility], [address], [place], [place], [address], [place] tel:[phone] [facility] humeral fracture1 (chief complaint) Pain in right upper arm Giuseppe Philip. [address], [place], [place], [address], [place]. tel:[phone] Referring Provider: Cedrick Chin, [address], [place], [place], [id number]. tel:[phone] PREV VISIT, NEW, AGE 18-39 [facility], [address], [place], [place], [id number], [place] tel:[phone] [facility] Medicine PHysical (chief complaint) Encntr for general adult medical exam w/o abnormal findings Giuseppe Philip. [address], [place], [place], [id number], [place]. tel:[phone] Referring Provider: Cedrick Chin, [facility] [place], [place], [id number]. tel:[phone] Family History Family Member Type Diagnosis Age At Onset Brother Problem (finding) Alive and well Mother Problem (finding) Alive and well Father Problem (finding) Alive and well Payers Payer name Insurance type Covered democrat ID Authoriza tion(s) No Information Social History [...] did follow up with ortho at [facility] last month and he was told the [...]
[2024-11-17 16:14] VITALS: BP 140/73; PULSE 80; RESP 19; TEMP 36.5; O2SAT 98
--- NOTE | 2024-11-17 18:00 | PC.NURSE ---
PT CALLED TO BE PLACED INTO A ROOM WITH NO ANSWER IN WAITING ROOM. NOT FOUND OUTSIDE.
--- OUTSIDE RECORDS SUMMARY | 2024-11-17 18:31 | XMS_ITS | Clinical Summary ---
Author Organization [facility] Address [address] [place] [address] Care Team Providers Care Rubber Goods Cutter Finisher Name Role Phone Ray Payan MD Primary Care Provider [phone] Allergies No known active allergies Medications meclizine [...] Department Care Team Description 10/09/2024 3:00 PM ROCK STAR Office Visit [facility] Medical [facility] Pulmonology [address] [facility] [address] [place] [phone] Gasper Still MD Dyspnea on exertion (Primary Dx); Chest pain, unspecified type 10/02/2024 Telephone [facility] Medical Group Primary Care at [address] [phone] Ethan Randolph MD from Last [...] on file Legal Sex Male 10:09 PM ROCK STAR Gender Identity Not on file Sexual Orientation Not on file Obstetrics History Last Filed Vital Signs Vital Sign Reading Time Taken Comments Blood Pressure 112/79 10/09/2024 3:00 PM ROCK STAR Pulse 78 10/09/2024 3:00 PM ROCK STAR Temperature 36.4 C (97.5 F) 10/09/2024 3:00 PM ROCK STAR Respiratory Rate 18 10/09/2024 3:00 PM ROCK STAR Oxygen Saturation 97% 10/09/2024 3:00 PM ROCK STAR Inhaled Oxygen Concentration - - Weight 127 kg (280 lb) 10/09/2024 3:00 PM ROCK STAR Height 182.9 cm (6' 0.01 ) 10/09/2024 3:00 PM CS T Body Mass Index 37.97 10/09/2024 3:00 PM ROCK STAR Plan of Treatment Health Maintenance Due Date [...] patient's age to complete this topic Insurance [facility] Care Teams Rubber Goods Cutter Finisher Relationship Specialty Start Date End Date Ray Payan MD [address] [place] [address] PCP - General Emergency Medicine 09/29/23
--- OUTSIDE RECORDS SUMMARY | 2024-11-17 18:31 | XMS_ITS | Referral Summary ---
Author Organization [facility] Address [address] [place] [address] Care Team Providers Care Traffic And Transport Planner Name Role Phone Ray Payan MD Primary Care Provider [phone] Encounters Date Type Department Care Team Description 10/09/2024 3:00 PM BIOSECURITY OFFICER Office Visit [facility] Medical Group Pulmonology [address] [place] [address] [place] [phone] Gasper Still MD Dyspnea on exertion (Primary Dx); Chest pain, unspecified type 10/02/2024 Telephone [facility] Medical Group Primary Care at [address] [phone] Ethan Randolph MD from Last [...] on file Legal Sex Male 10:09 PM BIOSECURITY OFFICER Gender Identity Not on file Sexual Orientation Not on file Last Filed Vital Signs Vital Sign Reading Time Taken Comments Blood Pressure 112/79 10/09/2024 3:00 PM BIOSECURITY OFFICER Pulse 78 10/09/2024 3:00 PM BIOSECURITY OFFICER Temperature 36.4 C (97.5 F) 10/09/2024 3:00 PM BIOSECURITY OFFICER Respiratory Rate 18 10/09/2024 3:00 PM BIOSECURITY OFFICER Oxygen Saturation 97% 10/09/2024 3:00 PM BIOSECURITY OFFICER Inhaled Oxygen Concentration - - Weight 127 kg (280 lb) 10/09/2024 3:00 PM BIOSECURITY OFFICER Height 182.9 cm (6' 0.01 ) 10/09/2024 3:00 PM CS T Body Mass Index 37.97 10/09/2024 3:00 PM BIOSECURITY OFFICER Plan of Treatment Not on file Insurance Care Teams Traffic And Transport Planner Relationship Specialty Start Date End Date Ray Payan MD [address] [place] [id number] PCP - General Emergency Medicine 09/29/23
--- OUTSIDE RECORDS SUMMARY | 2024-11-17 18:32 | XMS_ITS | Clinical Summary ---
Author Organization [facility] [employer] Address [address] [place] [address] Care Team Providers Care Ems Manager Name Role Phone Ray Payan MD Primary Care Provider [phone] Source Comments [facility] [employer],non-owned Affiliates and Associated Physician Practices is amultiple site organization consisting of ambulatory clinics and hospital sitesin [place], [place], [place] and [place]. This disclosure is being madepursuant to the Care Everywhere program and may not contain all information available regarding this patient. Last updated 18.[facility] [employer] [employer] Allergies No known active allergies Medications * [...] Department Care Team Description 11/09/2024 9:00 AM PRODUCTION REPAIRER Office Visit [facility] - ENT [address] [place] [address] Dysfunction of both eustachian tubes (Primary Dx); [...] Comments Blood Pressure 130/87 11/09/2024 8:39 AM PRODUCTION REPAIRER Pulse 77 11/09/2024 8:39 AM PRODUCTION REPAIRER Temperature 36.5 C (97.7 F) 07/15/2023 10:55 AM PRODUCTION REPAIRER Respiratory Rate 19 07/15/2023 10:55 AM PRODUCTION REPAIRER Oxygen Saturation 100% 07/15/2023 10:55 AM PRODUCTION REPAIRER Inhaled Oxygen Concentration - - Weight 130.2 kg (287 lb) 11/09/2024 8:39 AM PRODUCTION REPAIRER Height 182.9 cm (6') 11/09/2024 8:39 AM PRODUCTION REPAIRER Body Mass Index 38.92 11/09/2024 8:39 AM PRODUCTION REPAIRER Plan of Treatment Upcoming Encounters Date Type Department Care Team (Late st Contact Info) Description 12/03/2024 8:20 AM CDT Appointment [facility] [address] [place] [phone] Dave Calvo MD [address] [place] [address] 12/03/2024 9:00 AM CDT Office Visit [facility] - Neurology [address] [place] [phone] Deana Milton, REGISTERED NURSE HH CASE MANAGER-ACCOUNT FINANCIAL MANAGER [address] [place] [address] [place] [phone] 12/03/2024 10:30 AM CDT Office Visit [facility] - ENT [address] [place] [phone] Kristian Arguello MD [address] [place] [address] [place] [address] Health Maintenance Due Date Last Done Comments [...] [place] NASAL ENDOSCOPY,DX Routine 11/09/2024 10:01 AM PRODUCTION REPAIRER Dysfunction of both eustachian tubes Tympanic membrane retraction, right Otalgia of both ears from Last 3 Months Results * [place] NASAL ENDOSCOPY,DX (11/09/2024 10:01 AM PRODUCTION REPAIRER) Narrative Kristian Hancock MD - 11/09/2024 10:01 AM PRODUCTION REPAIRER Kristian Hancock MD 11/09/2024 3:57 PM Procedure: [...] ORDERABLES from Last 3 Months Care Teams Ems Manager Relationship Specialty Start Date End Date Ray Payan MD [address] [place] [phone] PCP - General Family Medicine 10/19/24
--- OUTSIDE RECORDS SUMMARY | 2024-11-17 18:32 | XMS_ITS | Continuity of Care Document ---
Author Organization [facility] Address [address] [place] [address] [place] [address] Phone Care Team Providers Care Bottom Pounder Cement Shoes Name Role Phone Cedrick Chin MD Unavailable Unavailable Allergies, Adverse Reactions, Alerts Substance Reaction Status Criticality ibuprofen Active No Information ketorolac Active No Information Medications Medication Instructions Dosage Effective Dates (start - stop) Status Comments [place] 5 mg-325 mg tablet take 1 tablet [...] Diagnoses Date Provider Providers Copied on Encounter [facility], [address], [place], [place], [id number], [place] tel:[phone] [facility] No Information Giuseppe Philip. [address], [place], [place], [id number], [place]. tel:[phone] Referring Provider: Cedrick Chin, [address], [place], [place], [id number]. tel:[phone] OFFICE/OUTPAT IENT VISIT, EST [facility], [address], [place], [place], [id number], [place] tel:[phone] [facility] humeral fracture1 (chief complaint) Pain in right upper arm Giuseppe Phliip. [address], [place], [place], [address], [place]. tel:[phone] Referring Provider: Cedrick Chin, [address], [place], [place], [id number]. tel:[phone] PREV VISIT, NEW, AGE 18-39 [facility], [address], [place], [place], [id number], [place] tel:[phone] [facility] Medicine PHysical (chief complaint) Encntr for general adult medical exam w/o abnormal findings Giuseppe Philip. [address], [place], [place], [address], [place]. tel:[phone] Referring Provider: Cedrick Chni, [facility], [place], [place], [id number]. tel:[phone] Family History Family Member Type Diagnosis Age [...] did follow up with ortho at [facility] last month and he was told [...]
--- OUTSIDE RECORDS SUMMARY | 2024-11-17 18:32 | XMS_ITS | Clinical Summary ---
Author Organization [facility] [employer] Address [address] [place] [address] Care Team Providers Care Gas Torch Solderer Name Role Phone Kacey Quigley MD Primary Care Provider [phone] Allergies No known active allergies Medications amoxicillin-clav ulanate (AUGMENTIN) 875-125 mg tabletIndication s:Acute otitis media, unspecified otitis media type Take 1 Tablet by mouth every 12 hours. 20 Tablet 3 Active fluticasone propionate (FLONASE) 50 mcg/spray [place], Suspension nasal inhalerIndicatio ns:Acute otitis media, unspecified [...] this topic Insurance OPEN ACCESS Care Teams Gas Torch Solderer Relationship Specialty Start Date End Date Kacey Quigley MD [address] [place] [address] PCP - General Family Practice 12/29/22
--- OUTSIDE RECORDS SUMMARY | 2024-11-17 18:32 | XMS_ITS | Patient Health Summary ---
Author Organization [facility] Address [address] [place] [address] Care Team Providers Care Train Announcer Name Role Phone Ray Payan MD Primary Care Provider [phone] Note from [facility],non-owned Affiliates and Associated Physician Practices is amultiple site organization consisting of ambulatory clinics and hospital sitesin [place], [place], [place] and [place]. This disclosure is being madepursuant to the Care Everywhere program and may not contain all information available regarding this patient. Last updated 18.[facility] Allergies No known active allergies [...] Comments Blood Pressure 130/87 11/09/2024 8:39 AM INSURANCE CHECKER Pulse 77 11/09/2024 8:39 AM INSURANCE CHECKER Temperature 36.5 C (97.7 F) 07/15/2023 10:55 AM INSURANCE CHECKER Respiratory Rate 19 07/15/2023 10:55 AM INSURANCE CHECKER Oxygen Saturation 100% 07/15/2023 10:55 AM INSURANCE CHECKER Inhaled Oxygen Concentration - - Weight 130.2 kg (287 lb) 11/09/2024 8:39 AM INSURANCE CHECKER Height 182.9 cm (6') 11/09/2024 8:39 AM INSURANCE CHECKER Body Mass Index 38.92 11/09/2024 8:39 AM INSURANCE CHECKER Procedures * IA NASAL ENDOSCOPY,DX(Performed 11/09/2024) Performed for Dysfunction of [...] BLOOD(Performed 06/25/2018) * OXYGEN(Performed 06/25/2018) Results * IA NASAL ENDOSCOPY,DX (11/09/2024 10:01 AM INSURANCE CHECKER) Narrative Kristian Hancock MD - 11/09/2024 10:01 AM INSURANCE CHECKER Kristian Hancock MD 11/09/2024 3:57 PM Procedure: [...] or More (06/22/2024 10:18 AM CDT) Narrative [facility] [address] - 06/22/2024 10:18 AM CDT Please see progress note in Epic for results. Barber Lema MD DIAGNOSTIC IMAGING O RDERABLES [facility] [address] * CT ABDOMEN PELVIS W CONTRAST (07/15/2023 3:04 PM INSURANCE CHECKER) Anatomical Region Laterality Modality Abdomen, Pelvis Computed Tomogra phy 07/15/2023 3:35 PM INSURANCE CHECKER Impressions 07/15/2023 4:26 PM INSURANCE CHECKER Impression: 1.No acute process identified in the abdomen or pelvis. 2.Trace free fluid in the pelvis. 3.Small umbilical hernia containing small bowel loops without obstruction. > Dictated by Hay Miller MD, MD (chief radiology). > Dictated by Hay Miller MD (Anesthesiologist And Critical Care) 07/15/2023 3:35 PM Conrado Beatty have personally reviewed and interpreted this examination/study. > Interpreting Provider: Conrado Sinclair on 07/15/2023 4:26 PM Narrative 07/15/2023 4:26 PM INSURANCE CHECKER PROCEDURE: CT ABDOMEN PELVIS W CONTRAST DATE/TIME [...] > Dictated by Hay Miller MD, MD (chief radiology). > Dictated by aHy Miller MD (Anesthesiologist And Critical Care) 07/15/2023 3:35 PM IConrado have personally reviewed and interpreted this examination/study. > Interpreting Provider: Conrado Sinclair on 07/15/2023 4:26 PM Jake Saucedo MD CT ORDERABLES * (ABNORMAL) COMPREHENSIVE METABOLIC PANEL (07/15/2023 11:51 AM INSURANCE CHECKER) Only the most recent of4 resultswithin the time period is included. BUN 13 7 - 26 mg/dL 07/15/2023 12:22 PM [facility] Creatinine 1.00 0.71 - 1.16 mg/dL 07/15/2023 12:22 PM [facility] Sodium 142 136 - 145 mmol/L 07/15/2023 12:22 PM [facility] Potassium 4.5 3.5 - 4.5 mmol/L 07/15/2023 12:22 PM [facility] Chloride 106 98 - 107 mmol/L 07/15/2023 12:22 PM [facility] CO2 30(H) 22 - 29 mmol/L 07/15/2023 12:22 PM [facility] Glucose 81 70 - 115 mg/dL 07/15/2023 12:22 PM [facility] Calcium 9.8 8.4 - 10.2 mg/dL 07/15/2023 12:22 PM [facility] Protein Total 7.2 6.0 - 8.3 g/dL 07/15/2023 12:22 PM [facility] Albumin 4.1 3.4 - 5.0 g/dL 07/15/2023 12:22 PM [facility] Bilirubin Total 0.3 0.2 - 1.2 mg/dL 07/15/2023 12:22 PM [facility] Alkaline Phosphatase 53 40 - 150 U/L 07/15/2023 12:22 PM [facility] ALT 47 5 - 55 U/L 07/15/2023 12:22 PM [facility] AST 31 5 - 34 U/L 07/15/2023 12:22 PM [facility] Anion Gap 6 6 - 16 07/15/2023 12:22 PM [facility] BUN/Creatinine Ratio 13 7 - 23 07/15/2023 12:22 PM [facility] Osmolality Calculated 293 275 - 295 mOsm/kg 07/15/2023 12:22 PM [facility] Albumin/Globulin Ratio 1.3 1.1 - 2.3 07/15/2023 12:22 PM [facility] eGFR by CKD-EPI >90 >=90 mL/min/1.7 3 m2 07/15/2023 12:22 PM [facility] Blood BLOOD SPECIMEN / Unknown Venipuncture / Unknown 07/15/2023 11:51 AM INSURANCE CHECKER 07/15/2023 11:55 AM INSURANCE CHECKER Jake Saucedo MD LAB - CHEMISTRY ORDE [facility] Organization Address City/State/[facility] Co de Phone Number [facility] [address] [place] [id number] [phone] * LIPASE BLOOD (07/15/2023 11:51 AM INSURANCE CHECKER) Lipase 20 8 - 78 U/L 07/15/2023 12:22 PM [facility] Blood BLOOD SPECIMEN / Unknown Venipuncture / Unknown 07/15/2023 11:51 AM INSURANCE CHECKER 07/15/2023 11:55 AM INSURANCE CHECKER Narrative [facility] - 07/15/2023 12:22 PM INSURANCE CHECKER Lipase results from the [employer] Alinity analyzer may not be comparable with other methodologies. Jake Saucedo MD LAB - CHEMISTRY [facility] [address] [place] [address], [facility] [phone] * CBC W AUTO DIFFERENTIAL (07/15/2023 11:50 AM INSURANCE CHECKER) Only the most recent of4 resultswithin the time period is included. WBC 7.7 3.5 - 10.5 10 3/uL 07/15/2023 12:04 PM [facility] RBC 5.05 4.30 - 5.70 10 6/uL 07/15/2023 12:04 PM [facility] Hemoglobin 14.9 12.0 - 17.6 g/dL 07/15/2023 12:04 PM [facility] Hematocrit 44.2 35.2 - 51.7 % 07/15/2023 12:04 PM [facility] MCV 87.5 80.7 - 98.3 fL 07/15/2023 12:04 PM [facility] MCH 29.5 26.7 - 34.0 pg 07/15/2023 12:04 PM [facility] MCHC 33.7 30.8 - 35.9 g/dL 07/15/2023 12:04 PM [facility] RDW-SD 40.6 36.0 - 50.0 fL 07/15/2023 12:04 PM [facility] RDW-CV 12.7 11.2 - 14.8 % 07/15/2023 12:04 PM [facility] Platelet Count 179 150 - 400 10 3/uL 07/15/2023 12:04 PM [facility] MPV 9.5 9.4 - 12.9 fL 07/15/2023 12:04 PM [facility] nRBC Absolute 0.00 0 10 3/uL 07/15/2023 12:04 PM [facility] nRBC Auto 0.0 0 /100 WBC 07/15/2023 12:04 PM [facility] Neutrophils % 51.6 35.0 - 70.0 % 07/15/2023 12:04 PM [facility] Lymphocytes % 35.0 20.0 - 43.0 % 07/15/2023 12:04 PM [facility] Monocytes % 7.0 5.0 - 13.0 % 07/15/2023 12:04 PM [facility] Eosinophils % 5.4 0.0 - 6.0 % 07/15/2023 12:04 PM [facility] Basophil % 0.6 0.0 - 2.0 % 07/15/2023 12:04 PM [facility] Neutrophils Absolute 3.97 1.60 - 7.00 10 3/uL 07/15/2023 12:04 PM [facility] Lymphocyte Absolute 2.70 1.10 - 3.90 10 3/uL 07/15/2023 12:04 PM [facility] Monocytes Absolute 0.54 0.26 - 1.07 10 3/uL 07/15/2023 12:04 PM [facility] Eosinophils Absolute 0.42 0.00 - 0.47 10 3/uL 07/15/2023 12:04 PM [facility] Basophils Absolute 0.05 0.00 - 0.08 10 3/uL 07/15/2023 12:04 PM [facility] Immature Granulocytes % 0.4 0.0 - 1.0 % 07/15/2023 12:04 PM [facility] Immature Granulocytes Absolute 0.03 07/15/2023 12:04 PM [facility] Blood BLOOD SPECIMEN / Unknown Venipuncture / Unknown 07/15/2023 11:50 AM INSURANCE CHECKER 07/15/2023 11:57 AM INSURANCE CHECKER Jake Saucedo MD LAB - HEMATOLOGY ORD ERABLES [facility] [address] [place] [address], [facility] [phone] * CARDIAC EKG ORDER (02/18/2021 1:14 PM CDT) Narrative 02/18/2021 1:14 PM CDT Ordered by an unspecified provider. Scanned Document CARDIAC SERVICES ORD ERABLES * TROPONIN I (02/17/2021 2:59 AM CDT) Troponin I <0.010 <0.032 ng/mL 02/17/2021 3:44 AM CDT [facility] Blood BLOOD SPECIMEN / Unknown Venipuncture / Unknown 02/17/2021 2:59 AM CDT 02/17/2021 3:13 AM CDT Jake Saucedo MD LAB - CHEMISTRY [facility] [address] [place] [address], [facility] [phone] * XR CHEST 1VW PORTABLE (02/17/2021 12:59 [...] is intact. Dictated by Kaushik Bejarano MD (chief radiology). IDr. BERTA MD have personally reviewed [...] is intact. Dictated by Kaushik Bejarano MD (chief radiology). I, . BERTA BLANKENSHIP MD have personally [...] (Bezet) 400 ms [facility] MUSE Calculated P [place] 75 degrees [facility] MUSE Calculated R [place] 57 degrees [facility] MUSE Calculated T [place] 34 degrees [facility] MUSE Interpretation EKG SINUS BRADYCARDIA OTHERWISE NORMAL ECG NO PREVIOUS ECGS AVAILABLE Confirmed by Alan Herndon ([id number]) on 02/17/2021 2:39:30 PM [facility] MUSE 02/17/2021 12:3 7 AM CDT 02/17/2021 2:39 PM CDT Jake Saucedo MD ECG ORDERABLES [facility] MUSE * XR HUMERUS RIGHT 2VW OR MORE (09/25/2019 10:28 AM INSURANCE CHECKER) Only the most recent of7 resultswithin the time period is included. Anatomical Region Laterality Modality Upper Extremity Radiographic Kristel ging 09/25/2019 2:04 PM INSURANCE CHECKER Impressions 09/25/2019 2:05 PM INSURANCE CHECKER IMPRESSION: Healed humeral fracture. This report was electronically signed by MEHDI BREWER MD on 09/25/2019 2:05 PM . Narrative 09/25/2019 2:05 PM INSURANCE CHECKER Exam: XR HUMERUS RIGHT 2VW History: Right [...] RIGHT 3VW OR MORE (07/25/2018 8:55 PM INSURANCE CHECKER) Anatomical Region Laterality Modality Upper Extremity Radiographic Kristel ging 07/25/2018 9:08 PM INSURANCE CHECKER Impressions 07/26/2018 9:47 AM INSURANCE CHECKER IMPRESSION: No acute osseous injury of the elbow. Soft tissue swelling around elbow/forearm. Dictated by Abram St MD (chief radiology). I, Dr. MAGUE ARNOLD M.D. have personally reviewed and interpreted this examination/study. This report was electronically signed by MAGUE ARNOLD M.D. on 07/26/2018 9:47 AM . Narrative 07/26/2018 9:47 AM INSURANCE CHECKER EXAMINATION: XR ELBOW RIGHT 3VW OR MORE [...] around elbow/forearm. Dictated by Abram St MD (chief radiology). Dr. MAGUE Beatty M.D. have personally reviewed and interpreted this examination/study. This report was electronically signed by MAGUE ARNOLD M.D. on07/26/2018 9:47 AM . Rosemary Ramey PA-C DIAGNOSTIC I MAGING ORDERABLES * XR FOREARM RIGHT 2VW (07/25/2018 8:55 PM INSURANCE CHECKER) Anatomical Region Laterality Modality Upper Extremity Radiographic Kristel ging 07/25/2018 9:02 PM INSURANCE CHECKER Impressions 07/26/2018 9:45 AM INSURANCE CHECKER IMPRESSION: No acute osseous abnormality. Soft tissue swelling. Dictated by Abram St MD (chief radiology). Dr. MAGUE Beatty M.D. have personally reviewed and interpreted this examination/study. This report was electronically signed by MAGUE ARNOLD M.D. on 07/26/2018 9:45 AM . Narrative 07/26/2018 9:45 AM INSURANCE CHECKER EXAMINATION: XR FOREARM RIGHT 2VW HISTORY: pain, [...] tissue swelling. Dictated by Abram St MD (chief radiology). I, Dr. MAGUE STOLAR, M.D. have personally reviewed and interpreted this examination/study. This report was electronically signed by MAGUE ARNOLD M.D. on07/26/2018 9:45 AM . Rosemary Ramey PA-C DIAGNOSTIC I MAGING ORDERABLES * (ABNORMAL) C-REACTIVE PROTEIN (07/25/2018 7:40 PM INSURANCE CHECKER) C-Reactive Protein 1.1(H) <=0.5 mg/dL 07/25/2018 8:06 PM INSURANCE CHECKER [facility] Blood BLOOD SPECIMEN / Unknown Venipuncture / Unknown 07/25/2018 7:40 PM INSURANCE CHECKER 07/25/2018 7:45 PM INSURANCE CHECKER Rosemary Ramey PA-C LAB - CHEMIS TRY ORDERABLES Performing Organization Address City/[facility]/ZIP Co de Phone Number [facility] [address] [place] [address], [facility] [phone] * CULTURE BLOOD (07/25/2018 7:40 PM INSURANCE CHECKER) Only the most recent of2 resultswithin the time period is included. Culture No growth day 5 DAVID 07/30/2018 11:31 PM INSURANCE CHECKER [facility] MICROBIOLOGY Blood PERIPHERAL BLOOD / Unknown Venipuncture / Unknown 07/25/2018 7:40 PM INSURANCE CHECKER 07/25/2018 7:45 PM INSURANCE CHECKER Rosemary Ramey PA-C LAB - MICROB IOLOGY ORDERABLES [facility] MICROBIOLOGY [address] [place] [address], [facility] [phone] * ERYTHROCYTE SEDIMENTATION RATE (07/25/2018 7:40 PM INSURANCE CHECKER) Erythrocyte Sedimentation Rate Westergren 10 0 - 15 MM/HR 07/25/2018 8:05 PM INSURANCE CHECKER [facility] Blood BLOOD SPECIMEN / Unknown Venipuncture / Unknown 07/25/2018 7:40 PM INSURANCE CHECKER 07/25/2018 7:45 PM INSURANCE CHECKER Rosemary Ramey PA-C LAB - HEMATO LOGY ORDERABLES [address] [phone] * CT HEAD WO CONTRAST (06/27/2018 8:38 [...] TOX URINE PANEL (06/26/2018 1:24 AM CDT) [facility] Amphetamines Screen Urine Negative Negative : < 1000 ng/mL 06/26/2018 1:58 AM [facility] Barbiturates Screen Urine Negative Negative : < 200 ng/mL 06/26/2018 1:58 AM [facility] Benzodiazepine Screen Urine Negative Negative : < 200 ng/mL 06/26/2018 1:58 AM [facility] Opiates Urine Positive(A) Negative : < 300 ng/mL 06/26/2018 1:58 AM [facility] Comment: Positive urine opiate screening results should be confirmed by another generally accepted non-immunological method such as gas chromatography or mass spectrometry. Cocaine Metabolites Urine Negative Negative : < 300 ng/mL 06/26/2018 1:58 AM [facility] Phencyclidine Screen Urine Negative Negative : < 25 ng/ml 06/26/2018 1:58 AM [facility] Cannabinoids Screen Urine Positive(A) Negative : <50 ng/mL 06/26/2018 1:58 AM [facility] Comment: Positive urine cannabinoids (THC) screening results should be confirmed by another generally accepted non-immunological method such as gas chromatography or mass spectrometry. Methadone Screen Urine Negative Negative : < 300 ng/mL 06/26/2018 1:58 AM [facility] Urine URINE / Unknown Collection / Unknown 06/26/2018 1:24 AM CDT 06/26/2018 1:[address] [facility] - 06/26/2018 1:58 AM CDT The Urine Toxicology Screening Panel does not screen for Propoxyphene, Meprobamate, Carisoprodol, Trazodone, ilqh-qrv-digctam medications and/or volatiles (Acetone, Isopropanol, Methanol or Ethylene Glycol). Ethanol, Salicylate, Acetaminophen, Tricyclic Antidepressants and several therapeutic drugs may be individually assayed in serum or plasma specimen. Toxicology testing by the [facility] is an aid to medical diagnosis and treatment of patients. No documented chain of custody was maintained. Results are intended to be used for clinical purposes only. Clay Wheeler DO LAB - URINE CHEMISTR Y ORDERABLES Performing Organization Address City/[facility]/ZIP Co de Phone Number [facility] [address] [place] [address] * TYPE + SCREEN PANEL (06/26/2018 12:42 AM CDT) Antibody Screen NEG 8 1:49 AM CDT [facility] ABO Rh A NEG 06/26/2018 1:49 AM CDT [facility] Blood Bank BLOOD SPECIMEN / Unknown Venipuncture / Unknown 06/26/2018 12:42 AM CDT 06/26/2018 12:50 AM CDT Clay Wheeler DO LAB - BLOOD BANK ORD ERABLES Performing Organization Address City/[facility] Co de Phone Number [facility] [address] [place] [address] * RETYPE PATIENT (06/26/2018 12:30 AM CDT) ABO 06/26/2018 2:00 AM CDT [facility] Rh Type 06/26/2018 2:00 AM CDT [facility] Typem 06/26/2018 2:00 AM CDT [facility] Interpretation 06/26/2018 2:00 AM CDT [facility] Blood BLOOD SPECIMEN / Unknown Lab Venipuncture / Unknown 06/26/2018 12:30 AM CDT 06/26/2018 12:51 AM CDT Narrative [facility] - 06/26/2018 2:00 AM CDT Re-type confirmed per [facility] Blood Bank policies & procedures. Results documented in department. Penny Oconnell MD LAB - BLOOD BANK ORD ERABLES [facility] [address] [place] [address], [facility] * CT ANGIO CHEST (06/26/2018 12:13 AM [...] phase study. Dictated by Román Guevara MD (chief radiology). I, Dr. SHAHLA CRAVEN M.D. have [...] phase study. Dictated by Román Guevara MD (chief radiology). Dr. SHAHLA Beatty M.D. have personally [...] upper hemithorax. Dictated by Uzair Estrada MD (chief radiology). Dr. ALIREZA Beatty have personally reviewed [...] upper hemithorax. Dictated by Uzair Estrada MD (chief radiology). Dr. ALIREZA Beatty have personally reviewed and interpreted this examination/study. This report was electronically signed by ALIREZA WILKINS on 06/26/2018 9:25 AM . Clay Wheeler DO DIAGNOSTIC IMAGING O RDERABLES * PT-INR [facility] (06/25/2018 11:42 PM CDT) PT 12.7 12.1 - 14.8 Seconds 06/25/2018 11:57 PM CDT [facility] INR 1.0 See Comment 06/25/2018 11:57 PM CDT [facility] Comment: The suggested therapeutic range for [...] [facility]/ZIP Co de Phone Number [address] [phone] * ALCOHOL ETHYL BLOOD (06/25/2018 11:42 PM CDT) Interpretation Ethanol None Detected None Detected mg/dL 06/26/2018 12:07 AM T [facility] Comment: Ethanol levels less than 10 mg/dL are resulted as None detected . Blood BLOOD SPECIMEN / Unknown Venipuncture / Unknown 06/25/2018 11:42 PM CDT 06/25/2018 11:46 PM CDT Clay Wheeler DO LAB - CHEMISTRY ORDE RABLES [address] [phone] Care Teams Train Announcer Relationship Specialty Start Date End Date Ray Payan MD [address] [place] [id number] PCP - General Family Medicine 10/19/24
--- OUTSIDE RECORDS SUMMARY | 2024-11-17 18:32 | XMS_ITS | CONTINUITY OF CARE DOCUMENT ---
Author Name jeison mchugh Address Unknown Organization [facility] Address [address] [place] [address] Phone [phone] Care Team Providers Care Inventory Controller Name Role Phone Leann DUNHAM, Flavia Roldan Unavailable FUNMI CHAUHAN MD Unavailable [phone] FUNMI CHAUHAN MD Unavailable [phone] PROBLEMS Condition Status Date Provider Notes Vitamin [...] Tre [place] Chest pain active Yadira Ventimiglia VISUAL SUPERVISOR Dizziness active Yadira Ventimiglia VISUAL SUPERVISOR Snoring active Yadira Ventimiglia VISUAL SUPERVISOR Cardiovascular Condition Screening active Danika Lewis BENEFITS ANALYST Fatigue active Danika Lewis BENEFITS ANALYST [place] active Flavia Noriega MD Anxiety disorder generalized active Flavia Noriega MD HTN essential active Flavia Noriega MD Cardiology examination active Flavia gallego MD Body mass index (BMI) 39.0-39.9, adult active Flavia Noriega MD ENCOUNTERS Date Type Provider Location Encounter Diag nosis - In-person encounter Office Visit Flavia Noriega MD [facility] Cardiology examinationBody mass index (BMI) 39.0-39.9, adult - In-person encounter Office Visit Flavia Noriega MD [facility] Anxiety disorder generalizedHTN essential - In-person encounter Office Visit Flavia Noriega MD [facility] CHAPARRO - In-person encounter Office Visit Flavia Noriega MD [facility] Cardiovascular Condition ScreeningFatigue - In-person encounter Office Visit Flavia Noriega MD [facility] - In-person encounter Office Visit Flavia Noriega MD [facility] Chest painDizzinessSnoring - In-person encounter Office Visit Tre Suarez MD [facility] FAMILY HISTORY OF HEART DISEASETobacco use, [...] Ja rret blood pressure, systolic 115 mm[Hg] [facility] pulse rate 84 /min [facility] oxygen saturation, oximetry 97 % [facility] respiratory rate E&M 12 /min [facility] weight E&M 205 [lb_av] John y height E&M 71 [in_i] [facility] y Body Mass Index (Ratio) 28.73 kg/m2 Connor Noriega MD blood pressure, resting No Ashl ey Titchenlisa BENEFITS ANALYST blood pressure, diastolic 63 mm[Hg] Li [facility] [...] iron binding capacity, unsaturated 203 ug/dL [facility] 168-123 5387/07/0 3 iron binding capacity, total 280 ug/dL [facility] 566-361 5882/07/0 3 free thyroxine index 1.9 [facility] 1.2-4.9 [...] 0-149 3 cholesterol, serum 165 mg/dL [facility] 180-376 5938/07/0 3 basophil count, absolute 0.0 x10E3/uL [employer] [...] Estab. 3 platelet count 163 X10E3/UL [facility] 828-965 3336/07/0 3 red blood cell distribution width 12.5 [...] 3.5-5.2 3 sodium, serum 143 mmol/L [facility] 212-908 2821/07/0 3 urea nitrogen/creatinine ratio, serum 11 [employer] [...] lópez is a former smoker. Yadirajanay Cross [facility] social history reviewed E&M revi ewed - no changes required Yadira Ventimiglia [facility] drug use no Yadira Ventimig stephan [facility] alcohol use no Yadira Ventimig stephan [facility] smoking, year quit 2022 Deepa Will iawv smoking history, tot al pack/day 1/2 PPD Deepadonal George cigarette use yes Deepa Ariel smoking status Former smoker Deepa garay drug use no Yadira Ventimig stephan [facility] alcohol use no Yadira Ventimig stephan [facility] smoking history, tot al pack/day 1/2 PPD Sarah Carrizales cigarette use yes Sarah Carrizlaes smoking status Current every da y smoker Yadirajanay Hadleymijimenez [facility] quit smoking, stage quit Tre rao MD [...] Payer name Policy type / Coverage type [employer] MEDICAID (2) Medicaid [id number] ADVANCE DIRECTIVES Name Date DISCUSSED - NO DECISION MADE TREATMENT PLAN Date Name Performer [id number],C, w ith no arrhythmia on ekg today. Will check labs, echo and tele monitor Flavia Noriega MD [id number],C, n uclaer stress test Findings: /05/13/23 R [...] ejection fraction is 55%. Flavia Noriega MD [id number],C,1 ppd or less T he Patient was reencouraged to stop smoking. Flavia Noriega MD [id number],C, Flavia Noriega MD [id number],C,t ry autopap Home sleep study shows an AHI of 8.1 which is consistent with a diagnosis of mild CHAPARRO. Mean oxygen saturation of 9 5%, with the lowest being 87%. Flavai Noriega MD [id number],C, h ad stress test done and had no ischemia h e did treadmill stress and did 13 mets and had 84% MPHR wiht control of bp and no st changes noted with a normal stress but had 84% MPHR so he had nuclear stress done [facility] was R otating planar images show [...] ejection fraction is 55%. Flavia Noriega MD [id number],C,h ad stress test done and had no ischemia h e did treadmill stress and did 13 mets and had 84% MPHR wiht control of bp and no st changes noted with a normal stress but had 84% MPHR so he had nuclear stress done [facility] was R otating planar images show [...] ejection fraction is 55%. Danika Lewis NP [id number],S,s brynn has dizziness w ill need to see neurologuist at [facility] or [facility] Danika Lewis NP [id number],S,a rrange for home sleep study - C [...] There is mild pulmonic regurgitation. Danika Lewis BENEFITS ANALYST [id number],C,n uclaer stress test Findings: 05/13/23 R otating [...] ventricular ejection fraction is 55%. Danika Lewis BENEFITS ANALYST [id number],C,r eports snoring at night with episodes of apnea. Will plan for home sleep study Yadira Ventimiglia [facility] [id number],C,r esumed use. Cessation encouraged Jeanerette Ventimiglia [facility] [id number],C,w ith no arrhythmia on ekg today. Will check labs, echo and tele monitor Yadira Cross [facility] [id number],C,W ith feeling near syncopal. EKG shows NSR no acute changes. He had echo in 2019 with nml LV and mild MI. Would recommend follow up to r/o any valvular abnormalities of LV dysfunction. Would also plan tele to r/o arrhythmia. O rders: 9 9215 HIGH 40-54min (CPT-51605) C omplete Echo (CPT-14115) S tress Routine (CPT-98185) M onitor - Telemetry (Mobile Cardiac) (CPT-83704) S leep Study Home (CPT-21362) C arotid Duplex Bilateral (CPT-35990) T SH, free T4, total T3 (5186) Yadira Hadleymiglia [facility] [id number],C,C omes and goes occuring near daily. Pain is sharp in nature. Somewhat atypical, but given his SOB, palpitations and near syncope would recommend treadmill stress O rders: 9 9215 HIGH 40-54min (CPT-51961) C omplete Echo (CPT-30906) S tress Routine (CPT-21974) M onitor - Telemetry (Mobile Cardiac) (CPT-38955) S leep Study Home (CPT-71024) C arotid Duplex Bilateral (CPT-83960) T SH, free T4, total T3 (4170) Yadira Cross VISUAL SUPERVISOR Cardiology: w ith no arrhythmia on ekg [...] MPHR so he had nuclear stress done [facility] was R otating planar images show [...] MPHR so he had nuclear stress done [facility] was R otating planar images show [...] w ill need to see neurologuist at [facility] or [facility] Flavia Noriega MD Cardiology: t ry [...] MPHR so he had nuclear stress done [facility] was R otating planar images show [...] MPHR so he had nuclear stress done [facility] was R otating planar images show [...] w ill need to see neurologuist at [facility] or [facility] Danika Lewis NP Cardiology:arrange f or [...] plan for home sleep study Yadira Ventimiglia [facility] Cardiology:resumed use. Cessatio n encouraged Yadira Ventimiglia [facility] Cardiology:with no a rrhythmia on ekg today. Will check labs, echo and tele monitor Yadira Ventimiglia [facility] Cardiology:With feel ing near syncopal. EKG shows NSR no acute changes. He had echo in 2019 with nml LV and mild MI. Would recommend follow up to r/o any valvular abnormalities of LV dysfunction. Would also plan tele to r/o arrhythmia. O rders: 9 15 HIGH 40-54min (CPT-87511) C omplete Echo (CPT-97194) S tress Routine (CPT-64613) M onitor - Telemetry (Mobile Cardiac) (CPT-89006) Sleep Study Home (CPT-81041) C arotid Duplex Bilateral (CPT-11128) T SH, free T4, total T3 (2986) Yadira Ventimiglia [facility] Cardiology:Comes and goes occuring near daily. Pain is sharp in nature. Somewhat atypical, but given his SOB, palpitations and near syncope would recommend treadmill stress O rders: 9 15 HIGH 40-54min (CPT-30958) C omplete Echo (CPT-03768) S tress Routine (CPT-33596) M onitor - Telemetry (Mobile Cardiac) (CPT-22805) S lee Study Home (CPT-10116) C arotid Duplex Bilateral (CPT-56113) T SH, free T4, total T3 (7444) Yadira Ventimiglia VISUAL SUPERVISOR :nml a1c and pro and lipse and [...] completed EKG Flavia Noriega MD completed EKG lFavia Noriega MD completed Ultrasound, abdomen, complete Tre Suarez MD completed EKG Tre Suarez MD complete d
--- OUTSIDE RECORDS SUMMARY | 2024-11-17 18:32 | XMS_ITS | Referral Summary ---
Author Organization [facility] Address [address] [place] [address] Care Team Providers Care Manager User Interface Name Role Phone Ray Payan MD Primary Care Provider [phone] Source Comments [facility] [employer],non-owned Affiliates and Associated Physician Practices is amultiple site organization consisting of ambulatory clinics and hospital sitesin [place], [place], [place] and [place]. This disclosure is being madepursuant to the Care Everywhere program and may not contain all information available regarding this patient. Last updated 18.[facility] [employer] Encounters Date Type Department Care Team Description 11/09/2024 Travel 11/09/2024 9:00 AM TRUCK ENGINE ASSEMBLER Office Visit [facility] - ENT [address] [place] [phone] Dysfunction of both eustachian tubes (Primary Dx); [...] Comments Blood Pressure 130/87 11/09/2024 8:39 AM TRUCK ENGINE ASSEMBLER Pulse 77 11/09/2024 8:39 AM TRUCK ENGINE ASSEMBLER Temperature 36.5 C (97.7 F) 07/15/2023 10:55 AM TRUCK ENGINE ASSEMBLER Respiratory Rate 19 07/15/2023 10:55 AM TRUCK ENGINE ASSEMBLER Oxygen Saturation 100% 07/15/2023 10:55 AM TRUCK ENGINE ASSEMBLER Inhaled Oxygen Concentration - - Weight 130.2 kg (287 lb) 11/09/2024 8:39 AM TRUCK ENGINE ASSEMBLER Height 182.9 cm (6') 11/09/2024 8:39 AM TRUCK ENGINE ASSEMBLER Body Mass Index 38.92 11/09/2024 8:39 AM TRUCK ENGINE ASSEMBLER Plan of Treatment Upcoming Encounters Date Type Department Care Team (Late st Contact Info) Description 12/03/2024 8:20 AM CDT Appointment [facility] [address] [place] [phone] Dave Calvo MD [address] [place] [id number] 12/03/2024 9:00 AM CDT Office Visit [facility] - Neurology [address] [place] [phone] Deana Milton, SPORTS COORDINATOR-TOE FORMER [address] [place] [address] [address] [place] [phone] 12/03/2024 10:30 AM CDT Office Visit [facility] - ENT [address] [place] [phone] Kristian Arguello MD [address] [place] [address] [address] [place] [address] Procedures Procedure Name Priority Date/Time Associated Diagnosis Comments [place] NASAL ENDOSCOPY,DX Routine 11/09/2024 10:01 AM TRUCK ENGINE ASSEMBLER Dysfunction of both eustachian tubes Tympanic membrane retraction, right Otalgia of both ears from Last 3 Months Results * [place] NASAL ENDOSCOPY,DX (11/09/2024 10:01 AM TRUCK ENGINE ASSEMBLER) Narrative Kristian Hancock MD - 11/09/2024 10:01 AM TRUCK ENGINE ASSEMBLER Kristian Hancock MD 11/09/2024 3:57 PM Procedure: [...] ORDERABLES from Last 3 Months Care Teams Manager User Interface Relationship Specialty Start Date End Date Ray Payan MD [facility] [address] [place] [address] PCP - General Family Medicine 10/19/24
== END 2024-11-17 18:53 | disposition left against medical advice (07) ==
LOC: ANHED 18:30
PROVIDERS: Emergency Provider Emergency Medicine; PCP Emergency Medicine
DX: R07.9 Chest pain, unspecified (principal)
CPT/HCPCS: 93005; 99199